=== PATIENT | male | born 1960 | race Caucasian/White ===

== ENCOUNTER 2016-10-25 16:20 | Inpatient (IN) | payer MEDICARE, MEDICAID ==
[2016-10-25 16:45] LABS: % BASOPHILS 0.3 % (0.0-2.0); % EOSINOPHILS 3.8 % (0.0-5.0); % LYMPHOCYTES 38.4 % (20.0-50.0); % MONOCYTES 8.1 % (2.0-10.0); % NEUTROPHILS 49.4 % (40.0-80.0); HEMATOCRIT 33.4 % (39.0-49.0); HEMOGLOBIN 11.4 gm/dL (13.2-17.3); MEAN CELL VOLUME 87.5 fl (80-99); MEAN CORPUSCULAR HEMOGLOBIN 29.9 pg (26.0-30.0); MEAN CORPUSCULAR HGB CONC 34.2 pg (28.0-36.0); MEAN PLATELET VOLUME 8.2 fl; NEUTROPHILE ABSOLUTE 3.1 Th/cmm (1.8-8.0); RED BLOOD COUNT 3.81 Mil/cmm (4.30-5.70); RED CELL DISTRIBUTION WIDTH 14.2 % (11.5-20.0); WHITE BLOOD COUNT 6.1 Th/cmm (4.8-10.8)
[2016-10-25 16:49] LABS: PLATELET COUNT 405 Th/cmm (150-400)
[2016-10-25 16:58] LABS: ALB/GLOB RATIO 1.6 (1.0-1.8); ALKALINE PHOSPHATASE 40 U/L (34-104); ANION GAP 8.3 (7.0-16.0); BILIRUBIN,TOTAL 0.2 mg/dL (0.3-1.0); BUN - UREA NITROGEN 18 mg/dL (7-25); BUN/CREATININE RATIO 13.8; CALCIUM SERUM 9.8 mg/dL (8.6-10.3); CARBON DIOXIDE 23.8 mEq/L (21.0-31.0); CHLORIDE 106 mEq/L (98-107); CREATININE - SERUM 1.3 mg/dL (0.7-1.3); GLUCOSE 89 mg/dL (70-105); POTASSIUM SERUM 4.1 mEq/L (3.5-5.1); SGOT 16 U/L (13-39); SGPT/ALT 13 U/L (7-52); SODIUM SERUM 134 mEq/L (136-145)
--- NOTE | 2016-10-25 17:08 | ED Physician Chart ---
Chief Complaint/HPI - Patient Information Date Seen:: 10/25/16 Time Seen:: 16:50 Chief Complaint:: "paranoia" History of Present Illness:: Patient reportedly has "paranoia." Patient denies visual or auditory hallucinations and states he likes his current facility and wants to go back there and not be admitted here. Patient denies recent vomiting, diarrhea, fever , cough, abdominal pain, fever. Allergies:: Allergies Allergy/AdvReac Type Severity Reaction Status Date / Time No Known Allergies Allergy Verified 04/25/16 17:00 Vitals:: Vital Signs - 8 hr 10/25/16 16:36 Temp 98.4 F HR 77 RR 16 BP 119/73 O2 Sat % 98 Historian:: Patient Review:: Nurse's Note Reviewed, Transfer documents Reviewed Review of Systems - Review of Systems General/Constitutional: No fever, No chills Skin: No skin lesions Head: No headache Eyes: No loss of vision ENT: No earache Neck: No neck pain Cardio Vascular: No chest pain Pulmonary: No SOB GI: No nausea, No vomiting G/U: No dysuria Musculoskeletal: No bone or joint pain Endocrine: No polyuria, No polydipsia Psychiatric: No auditory hallucination, No visual hallucination Hematopoietic: No bruising Allergic/Immuno: No urticaria Neurological: No syncope Past Medical History - Past Medical History Past Medical History: Dyslipidemia, PUD/GERD (cellulitis left leg; hypercholesterolemia; hypothyroidism; BPH; schizoaffective disorder), Thyroid disorder, Other Family History: HTN Social History: Non Smoker, No Alcohol Surgical History: None Psychiatricy History: Other (schizoaffective disorder) Medication: Reviewed Family Medical History - Family Member Mother History Unknown: Yes Ethnicity: Unknown Living Status: Still Living Hx Family Cancer: No Hx Family Coronary Artery Disease: No Hx Family Congestive Heart Failure: No Hx Family Hypertension: No Hx Family Stroke: No Hx Family Diabetes: No Hx Family Seizures: No Hx Family Dementia: No Hx Family AIDS: No Hx Family HIV: No Hx Family COPD: No Hx Family Hepatitis: No Hx Family Psychiatric Problems: No Hx Family Tuberculosis: No Father History Unknown: Yes Ethnicity: Unknown Living Status: Still Living Hx Family Cancer: No Hx Family Coronary Artery Disease: No Hx Family Congestive Heart Failure: No Hx Family Hypertension: No Hx Family Stroke: No Hx Family Diabetes: No Hx Family Seizures: No Hx Family Dementia: No Hx Family AIDS: No Hx Family HIV: No Hx Family COPD: No Hx Family Hepatitis: No Hx Family Psychiatric Problems: No Hx Family Tuberculosis: No Labs/Radiology/EKG Results - Lab Results Results: Laboratory Tests 10/25/16 10/25/16 16:39 16:39 WBC 6.1 RBC 3.81 L Hgb 11.4 L Hct 33.4 L MCV 87.5 MCH 29.9 MCHC Differential 34.2 RDW 14.2 Plt Count 405 H D MPV 8.2 Neutrophils % 49.4 Lymphocytes % 38.4 Monocytes % 8.1 Eosinophils % 3.8 Basophils % 0.3 Sodium 134 L Potassium 4.1 Chloride 106 Carbon Dioxide 23.8 Anion Gap 8.3 BUN 18 Creatinine 1.3 Est GFR ( Amer) > 60.0 Est GFR (Non-Af Amer) > 60.0 BUN/Creatinine Ratio 13.8 Glucose 89 Calcium 9.8 Total Bilirubin 0.2 L AST 16 ALT 13 Alkaline Phosphatase 40 Total Protein 6.7 Albumin 4.1 L Globulin 2.6 Albumin/Globulin Ratio 1.6 - EKG Interpretations Rhythm: NSR [place]: normal Rate: 74 Comments:: no ST-T changes. ED Septic Shock - . Is Septic Shock (SBP<90, OR Lactate>4 mmol\\L) present?: No - <6hrs of presentation: Vital Signs: Vital Signs - 8 hr 10/25/16 16:36 Temp 98.4 F HR 77 RR 16 BP 119/73 O2 Sat % 98 Reassessment (Disposition) - Reassessment Reassessment Condition:: Unchanged - Diagnosis Diagnosis:: schizoaffective disorder - Patient Disposition Admitted to:: [facility] Admitting Medical Physician:: Winifred Rogers Admitting Psych Physician:: Mike Jordan Condition at Disposition:: Stable ED Discharge Plan - Patient Disposition Admit/Discharge/Transfer: Other Care w/in this hosp Condition at Disposition: Guarded
[2016-10-25 19:38] LABS: URINE BILIRUBIN NEGATIVE (NEGATIVE); URINE COLOR YELLOW; URINE GLUCOSE (UA) NEGATIVE (NEGATIVE); URINE KETONE NEGATIVE (NEGATIVE)
[2016-10-25 19:39] LABS: URINE BACTERIA NONE SEEN /hpf (NONE SEEN); URINE BLOOD NEGATIVE (NEGATIVE); URINE EPITHELIAL CELLS NONE SEEN /lpf (FEW); URINE PH 7.5; URINE PROTEIN NEGATIVE (NEGATIVE); URINE RBC NONE SEEN /hpf (0-5); URINE UROBILINOGEN 0.2 E.U./dL (0.2 - 1.0); URINE WBC NONE SEEN /hpf (0-5)
[2016-10-25 20:17] VITALS: BP 134/76
[2016-10-25] MEDS ORDERED: Hydrocodone/APAP 5mg/325mg Tab PO PRN (20:37)
--- NOTE | 2016-10-25 22:16 | Admit Criteria Form ---
Admit Criteria Forms - Admit Criteria Diagnosis: PSYCHIATRIC DISORDERS Clinical Indications for Inpatient Care (Place 'X' for any and all applicable criteria): Ongoing inpatient care may be needed for ANY ONE of the following(1)(2)(3)(4)(6) (7)(8): [ ]I. Danger to self or others not manageable at lower level of care. [ ]II. Grave disability (eg, inability to perform self care necessary at lower level of care) [ ]III. Agitation or inappropriate behavior interfering with care for primary condition (eg, attempting to discontinue lines or drains prematurely, unable to cooperate with respiratory care) [X]IV. Severe disability or disorder indicated by ALL of the following: [X]a) Severe behavioral health disorder-related symptoms or condition indicated by ANY ONE of the following: [ ]i) Severe problem with cognition, memory, judgment, or impulse control [X]ii) Severe clinical manifestations (eg, hallucinations, delusions, other acute psychotic symptoms, florecita, extreme agitation or anxiety) [X]b) Patient management at lower level of care is not feasible until acute intervention or modification is initiated. Extended stay beyond goal length of stay for the primary condition may be indicated when ANY ONE of the following is present: (1)(2)(3)(4): [ ]a) Patient is a danger to self or others and not manageable at lower level of care. [ ]b) Behavior crisis management, including physical or chemical restraints, is required and is not available at a lower level of care. [ ]c) Behavioral symptoms (e.g., agitation, somnolence, inappropriate behavior) are present, and are not manageable at a lower level of care. [ ]d) Patient cannot understand follow-up treatment and crisis plan. [ ]e) Provider and supports are not sufficiently available at lower level of care. [ ]f) Patient cannot participate (e.g., verify absence of plan for harm) and is in needed of monitoring. The original [facility] content created by [facility] has been revised. The portions of the content which have been revised are identified through the use of italic text or in bold, and [facility] has neither reviewed nor approved the modified material. All other unmodified content is copyright [facility]. Please see references footnoted in the original [facility] edition 2016 Admit Criteria Met?: Yes
--- NOTE | 2016-10-25 23:55 | Consultation ---
Consult Note - Consult Note Service Date: 10/25/16 Consult Note: PHYSICIAN Consultation Note: Date of Admission: 10/25/16 Purpose of Consultation: Chief Complaint: paranoid History of Present Illness: Patient BENJAMIN COOK was admitted to [facility] with [employer]. Patient is 55 y male with history of HTN, Seizure disorder admitted to Geropsych unit at [facility] for paranoid ideation. he was aggressive to others. Allergies Allergy/AdvReac Type Severity Reaction Status Date / Time No Known Allergies Allergy Verified 04/25/16 17:00 Vital Signs Temp 98.3 F 10/25/16 20:20 Pulse 80 10/25/16 20:20 Resp 18 10/25/16 20:20 BP 120/84 10/25/16 20:20 Pulse Ox 99 10/25/16 20:20 Home Medication Medication Instructions Recorded Type Levothyroxine [Synthroid] 0.125 mg PO QDAC #0 tab 03/16/15 Rx risperiDONE [Risperdal] 1 mg PO TID #0 tab 03/16/15 Rx Acetaminophen [Tylenol] 650 mg PO Q4HR PRN #0 tab 05/18/15 Rx Fenofibrate, Micronized [Tricor] 134 mg PO DAILY #0 cap 05/18/15 Rx Hydrocodone/APAP 5mg/325mg [[place] 1 tab PO BID PRN #0 tab 05/18/15 Rx 5mg/325mg] Magnesium Hydroxide [Milk of 30 ml PO Q6H PRN #0 udc 05/18/15 Rx Magnesia] Aspirin EC [Ecotrin] 81 mg PO DAILY 04/25/16 History Benztropine [Cogentin*] 2 mg PO BID 04/25/16 History Divalproex [Chemo MTZ] 1,000 mg PO HS 04/25/16 History Divalproex [Chemo MTZ] 500 mg PO DAILY 04/25/16 History Famotidine [Pepcid] 20 mg PO DAILY 04/25/16 History Lisinopril [Zestril*] 10 mg PO DAILY 04/25/16 History Lorazepam [Ativan] 1 mg PO BID PRN 04/25/16 History QUEtiapine Fumarate [SEROquel] 50 mg PO BID 04/25/16 History QUEtiapine Fumarate [SEROquel] 550 mg PO HS 04/25/16 History Tamsulosin [Flomax] 0.4 mg PO HS 04/25/16 History Thiamine [Vitamin B1] 100 mg PO DAILY 04/25/16 History Zolpidem Tartrate [Ambien] 5 mg PO HS PRN 04/25/16 History cloZAPine [Clozaril] 200 mg PO HS 04/25/16 History clonazePAM [klonoPIN*] 0.5 mg PO BID 04/25/16 History traZODone HCl [Desyrel*] 25 mg PO HS 04/25/16 History Current Medications Generic Name Dose Route Start Last Admin Trade Name Freq PRN Reason Stop Dose Admin Acetaminophen 650 mg 10/25/16 20:24 Tylenol PO 12/24/16 20:23 Q4HR PRN Fever >100.5 Acetaminophen/Hydrocodone Bitart 1 tab 10/25/16 20:37 [place] 5mg/325mg PO 12/24/16 20:36 BID PRN Pain Aspirin 81 mg 10/26/16 09:00 Ecotrin PO 12/25/16 08:59 DAILY HEIDI Benztropine Mesylate 2 mg 10/26/16 09:00 Cogentin PO 12/25/16 08:59 BID HEIDI Clozapine 200 mg 10/25/16 21:00 10/25/16 22:42 Clozaril PO 12/24/16 20:59 Not Given HS HEIDI Protocol Divalproex Sodium 1,000 mg 10/25/16 21:00 10/25/16 21:[address] PO 12/24/16 20:59 1,000 mg Q12HR HEIDI Administration Protocol Famotidine 20 mg 10/26/16 09:00 Pepcid PO 12/25/16 08:59 DAILY HEIDI Fenofibrate 134 mg 10/26/16 09:00 Tricor PO 12/25/16 08:59 DAILY HEIDI Levothyroxine Sodium 0.125 mg 10/26/16 07:30 Synthroid PO 12/25/16 07:29 QDAC HEIDI Lisinopril 10 mg 10/26/16 09:00 Zestril PO 12/25/16 08:59 DAILY HEIDI Lorazepam 1 mg 10/25/16 20:37 Ativan PO 12/24/16 20:36 BID PRN Anxiety Protocol Magnesium Hydroxide 30 ml 10/25/16 20:37 Milk Of Magnesia PO 12/24/16 20:36 Q6H PRN Constipation Quetiapine Fumarate 500 mg 10/25/16 21:00 10/25/16 22:42 Seroquel PO 12/24/16 20:59 Not Given HS [facility] Protocol Tamsulosin HCl 0.4 mg 10/25/16 21:00 10/25/16 21:10 Flomax PO 12/24/16 20:59 0.4 mg HS HEIDI Administration Thiamine HCl 100 mg 10/26/16 09:00 Vitamin B1 PO 12/25/16 08:59 DAILY HEIDI Trazodone HCl 25 mg 10/25/16 21:00 10/25/16 22:42 Desyrel PO 12/24/16 20:59 Not Given HS [facility] Protocol Zolpidem Tartrate 5 mg 10/25/16 20:18 Ambien PO 12/24/16 20:17 HS PRN Insomnia Review of Systems: A 12 point ROS was reviewed with the pertinent positive and negatives noted in the HPI. Past Medical History Hx Diabetes No Hx HTN Yes Hx COPD No Hx Stroke No Hx Seizure Yes Hx Renal Disease No Hepatitis No Bleeding Problems No Depression Yes VRE No MRSA No Hx Dizziness No Anxiety Yes Hx Arthritis No Hx Asthma No Hx Blood Transfusion Reaction No Hx Cardiac Disease No Hx Eating Disorder No Hx Fainting/Syncope No Hx GI Problems/Ulcer No TB Diagnosis In Past 2 Years No Social History Smoking Status Never smoker Drug Use No Alcohol Use No Physical Exam: General: Wn WD. No Acute Distress HEENT: EOMI Bilaterally, PERRLA Bilaterally, Head is normocephalic, atraumatic on inspection. Cardio: +S1/S2 Auscultated, RRR, no murmurs/rubs/gallops noted Respiratory: Clear to Auscultate Bilaterally Abdominal: Soft, Nondistended, Nontender to palpation x 4 quadrants Genital/Urinary: Extremities: No Edema noted in the lower extremities Neurological: Cranial Nerves II-XII intact bilaterally, Gait Steady, No Focal Deficits noted. Assessment/Plan: Psychosis,, acute. Schizoaffective disorder. HTN. Seizure disorder. plan conitnue the same treatment, follow up as per consults. Signed, Chato Elam M.D. [id number]
[2016-10-26] MEDS: Levothyroxine 0.125 Mg Tab PO SCH (06:45)
[2016-10-26] MEDS: Fenofibrate, Micronized 134 mg Cap PO SCH (09:06)
[2016-10-26] MEDS: Benztropine 1 MG TAB PO SCH ×2 (09:07→17:14)
--- NOTE | 2016-10-26 09:51 | General Progress Note ---
Objective - Results Result Diagrams: 10/25/16 16:39 10/25/16 16:39 Recent Labs: Laboratory Last Values WBC 6.1 Th/cmm (4.8-10.8) 10/25/16 16:39 RBC 3.81 Mil/cmm (4.30-5.70) L 10/25/16 16:39 Hgb 11.4 gm/dL (13.2-17.3) L 10/25/16 16:39 Hct 33.4 % (39.0-49.0) L 10/25/16 16:39 MCV 87.5 fl (80-99) 10/25/16 16:39 MCH 29.9 pg (26.0-30.0) 10/25/16 16:39 MCHC Differential 34.2 pg (28.0-36.0) 10/25/16 16:39 RDW 14.2 % (11.5-20.0) 10/25/16 16:39 Plt Count 405 Th/cmm (150-400) H D 10/25/16 16:39 MPV 8.2 fl 10/25/16 16:39 Neutrophils % 49.4 % (40.0-80.0) 10/25/16 16:39 Lymphocytes % 38.4 % (20.0-50.0) 10/25/16 16:39 Monocytes % 8.1 % (2.0-10.0) 10/25/16 16:39 Eosinophils % 3.8 % (0.0-5.0) 10/25/16 16:39 Basophils % 0.3 % (0.0-2.0) 10/25/16 16:39 Sodium 134 mEq/L (136-145) L 10/25/16 16:39 Potassium 4.1 mEq/L (3.5-5.1) 10/25/16 16:39 Chloride 106 mEq/L (98-107) 10/25/16 16:39 Carbon Dioxide 23.8 mEq/L (21.0-31.0) 10/25/16 16:39 Anion Gap 8.3 (7.0-16.0) 10/25/16 16:39 BUN 18 mg/dL (7-25) 10/25/16 16:39 Creatinine 1.3 mg/dL (0.7-1.3) 10/25/16 16:39 Est GFR ( Amer) > 60.0 ml/min (>90) 10/25/16 16:39 Est GFR (Non-Af Amer) > 60.0 ml/min 10/25/16 16:39 BUN/Creatinine Ratio 13.8 10/25/16 16:39 Glucose 89 mg/dL (70-105) 10/25/16 16:39 Calcium 9.8 mg/dL (8.6-10.3) 10/25/16 16:39 Total Bilirubin 0.2 mg/dL (0.3-1.0) L 10/25/16 16:39 AST 16 U/L (13-39) 10/25/16 16:39 ALT 13 U/L (7-52) 10/25/16 16:39 Alkaline Phosphatase 40 U/L (34-104) 10/25/16 16:39 Total Protein 6.7 gm/dL (6.0-8.3) 10/25/16 16:39 Albumin 4.1 gm/dL (4.2-5.5) L 10/25/16 16:39 Globulin 2.6 gm/dL 10/25/16 16:39 Albumin/Globulin Ratio 1.6 (1.0-1.8) 10/25/16 16:39 TSH 2.35 uIU/ml (0.34-5.60) 10/25/16 16:39 Urine Source CLEAN C 10/25/16 18:00 Urine Color YELLOW 10/25/16 18:00 Urine Clarity CLEAR (CLEAR) 10/25/16 18:00 Urine pH 7.5 10/25/16 18:00 Ur Specific [place] 1.020 (1.005-1.030) 10/25/16 18:00 Urine Protein NEGATIVE mg/dL (NEGATIVE) 10/25/16 18:00 Urine Glucose (UA) NEGATIVE mg/dL (NEGATIVE) 10/25/16 18:00 Urine Ketones NEGATIVE mg/dL (NEGATIVE) 10/25/16 18:00 Urine Blood NEGATIVE (NEGATIVE) 10/25/16 18:00 Urine Nitrate NEGATIVE (NEGATIVE) 10/25/16 18:00 Urine Bilirubin NEGATIVE (NEGATIVE) 10/25/16 18:00 Urine Urobilinogen 0.2 E.U./dL (0.2 - 1.0) 10/25/16 18:00 Ur Leukocyte Esterase NEGATIVE (NEGATIVE) 10/25/16 18:00 Urine RBC NONE SEEN /hpf (0-5) 10/25/16 18:00 Urine WBC NONE SEEN /hpf (0-5) 10/25/16 18:00 Ur Epithelial Cells NONE SEEN /lpf (FEW) 10/25/16 18:00 Urine Bacteria NONE SEEN /hpf (NONE SEEN) 10/25/16 18:00 Valproic Acid 81.7 ug/mL (50.0-100.0) 10/25/16 16:39 RPR NONREACTIVE (NONREACTIVE) 10/25/16 16:39 - Physical Exam Vitals and I&O: Vital Signs Temp 98.3 F 10/25/16 20:20 Pulse 92 10/26/16 09:06 Resp 18 10/25/16 20:20 BP 121/62 10/26/16 09:06 Pulse Ox 99 10/25/16 20:20 Active Medications: Current Medications Acetaminophen (Tylenol) 650 mg PO Q4HR PRN PRN Reason: Fever >100.5 Stop: 12/24/16 20:23 Acetaminophen/Hydrocodone Bitart ([place] 5mg/325mg) 1 tab PO BID PRN PRN Reason: Pain Stop: 12/24/16 20:36 Aspirin (Ecotrin) 81 mg PO DAILY [facility] Stop: 12/25/16 08:59 Last Admin: 10/26/16 09:07 Dose: 81 mg Benztropine Mesylate (Cogentin) 2 mg PO BID HEIDI Stop: 12/25/16 08:59 Last Admin: 10/26/16 09:07 Dose: 2 mg Clozapine (Clozaril) 200 mg PO HS HEIDI PRN Reason: Protocol Stop: 12/24/16 20:59 Last Admin: 10/25/16 22:42 Dose: Not Given Divalproex Sodium (Depakote Dr) 1,000 mg PO Q12HR HEIDI PRN Reason: Protocol Stop: 12/24/16 20:59 Last Admin: 10/26/16 09:07 Dose: 1,000 mg Famotidine (Pepcid) 20 mg PO DAILY HEIDI Stop: 12/25/16 08:59 Last Admin: 10/26/16 09:07 Dose: 20 mg Fenofibrate (Tricor) 134 mg PO DAILY HEIDI Stop: 12/25/16 08:59 Last Admin: 10/26/16 09:06 Dose: 134 mg Levothyroxine Sodium (Synthroid) 0.125 mg PO QDAC HEIDI Stop: 12/25/16 07:29 Last Admin: 10/26/16 06:45 Dose: 0.125 mg Lisinopril (Zestril) 10 mg PO DAILY HEIDI Stop: 12/25/16 08:59 Last Admin: 10/26/16 09:06 Dose: 10 mg Lorazepam (Ativan) 1 mg PO BID PRN; Protocol PRN Reason: Anxiety Stop: 12/24/16 20:36 Magnesium Hydroxide (Milk Of Magnesia) 30 ml PO Q6H PRN PRN Reason: Constipation Stop: 12/24/16 20:36 Quetiapine Fumarate (Seroquel) 500 mg PO HS HEIDI PRN Reason: Protocol Stop: 12/24/16 20:59 Last Admin: 10/25/16 22:42 Dose: Not Given Tamsulosin HCl (Flomax) 0.4 mg PO HS HEIDI Stop: 12/24/16 20:59 Last Admin: 10/25/16 21:10 Dose: 0.4 mg Thiamine HCl (Vitamin B1) 100 mg PO DAILY HEIDI Stop: 12/25/16 08:59 Last Admin: 10/26/16 09:07 Dose: 100 mg Trazodone HCl (Desyrel) 25 mg PO HS HEIDI PRN Reason: Protocol Stop: 12/24/16 20:59 Last Admin: 10/25/16 22:42 Dose: Not Given Zolpidem Tartrate (Ambien) 5 mg PO HS PRN PRN Reason: Insomnia Stop: 12/24/16 20:17 - Procedures Procedures: Procedures Procedure Code Date OTHER GROUP THERAPY 94.44 04/29/15 Assessment/Plan - Problem List Patient Problems: All Active Problems Delusional disorder (Acute) F22 Hyponatremia (Acute) E87.1 Pain (Acute) R52
--- NOTE | 2016-10-26 14:29 | History & Physical ---
This patient is very well known to me. The patient lives in [facility]. The patient has underlying psychiatric problem, schizoaffective disorder, apparently also has a history of seizure disorder, history of hypertension. He was having severe paranoid ideation and very aggressive. He was referred to [facility] ER where the ER doctor cleared him medically and admitted to Geropsych Unit and difficult to obtain any more history from him. PAST MEDICAL HISTORY: As enumerated above. ALLERGIES: None. MEDICATIONS: He is on levothyroxine, risperidone, fenofibrate, and [place]. PHYSICAL EXAMINATION: VITAL SIGNS: Temperature 98.3, pulse was 80, respirations 18, blood pressure 120/58. HEAD: Normal. ENT: Normal. NECK: Supple, nontender. LUNGS: Clear. CARDIOVASCULAR SYSTEM: S1, S2 heard. ABDOMEN: Soft. Bowel sounds are heard. CENTRAL NERVOUS SYSTEM: Grossly normal. DIAGNOSES: 1. History of hypertension. 2. History of seizures. 3. History of schizoaffective disorder. 4. History of benign enlargement of the prostate. 5. History of hypothyroidism. 6. History of hyperlipidemia. PLAN: We will continue all of his medications and I will follow up for all the medical problems and I will follow along with psychiatrist. JOB# [id number]
[2016-10-27] MEDS: Magnesium Hydroxide (MOM) 30 mL UDC PO PRN (00:12)
[2016-10-27] MEDS: Levothyroxine 0.125 Mg Tab PO SCH (06:36)
[2016-10-27] MEDS: Benztropine 1 MG TAB PO SCH ×2 (08:25→16:10)
[2016-10-27] MEDS: Fenofibrate, Micronized 134 mg Cap PO SCH (08:28)
--- NOTE | 2016-10-27 10:24 | Psychosocial Evaluation ---
CHIEF COMPLAINT: "I can't sleep." HISTORY OF PRESENT ILLNESS: The patient is a 55-year-old male with a history of schizoaffective disorder, known to myself from treatment at this facility and prior hospitalization was sent to the hospital from his [facility] facility for increased agitation and paranoia and not sleeping and become more restless and anxious. The patient admits to having racing thoughts and mood swings. Medications were recently decreased just a few weeks ago and now he presented to the hospital with decompensated state. PAST PSYCHIATRIC HISTORY: Multiple hospitalizations, chronic history of mental illness. PAST MEDICAL HISTORY: As per Dr. Rogers. PSYCHOSOCIAL HISTORY: The patient resides at a [facility] facility and requires complete care. THE PATIENT'S STRENGTHS AND ASSETS: This patient is accepting treatment, ____ poor insight. MENTAL STATUS EXAMINATION: The patient is cooperative and slightly disheveled. His speech is fast and pressured. His affect is labile and anxious. The patient is still highly paranoid, suspicious. The patient is oriented to time, place and person. It is unclear if he is having auditory hallucinations that he is not hearing voices now, but in the past, he has a history of hearing voices. ASSESSMENT: Schizoaffective disorder, psychotic phase. MEDICAL DIAGNOSIS: Per medical history. PLAN: We will admit the patient for hospitalization. We will start individual, milieu and group therapy and assess psychopharmacological intervention. ESTIMATED LENGTH OF STAY: 7 days. CRITERIA FOR DISCHARGE: No psychosis, no agitation, safe disposition, outpatient treatment plan. [facility]# [id number]
--- NOTE | 2016-10-27 11:17 | General Progress Note ---
Subjective - Review of Systems Service Date: 10/27/16 Objective - Results Result Diagrams: 10/29/16 08:55 10/25/16 16:39 Recent Labs: Laboratory Last Values WBC 6.1 Th/cmm (4.8-10.8) 10/25/16 16:39 RBC 3.81 Mil/cmm (4.30-5.70) L 10/25/16 16:39 Hgb 11.4 gm/dL (13.2-17.3) L 10/25/16 16:39 Hct 33.4 % (39.0-49.0) L 10/25/16 16:39 MCV 87.5 fl (80-99) 10/25/16 16:39 MCH 29.9 pg (26.0-30.0) 10/25/16 16:39 MCHC Differential 34.2 pg (28.0-36.0) 10/25/16 16:39 RDW 14.2 % (11.5-20.0) 10/25/16 16:39 Plt Count 405 Th/cmm (150-400) H D 10/25/16 16:39 MPV 8.2 fl 10/25/16 16:39 Neutrophils % 49.4 % (40.0-80.0) 10/25/16 16:39 Lymphocytes % 38.4 % (20.0-50.0) 10/25/16 16:39 Monocytes % 8.1 % (2.0-10.0) 10/25/16 16:39 Eosinophils % 3.8 % (0.0-5.0) 10/25/16 16:39 Basophils % 0.3 % (0.0-2.0) 10/25/16 16:39 Sodium 134 mEq/L (136-145) L 10/25/16 16:39 Potassium 4.1 mEq/L (3.5-5.1) 10/25/16 16:39 Chloride 106 mEq/L (98-107) 10/25/16 16:39 Carbon Dioxide 23.8 mEq/L (21.0-31.0) 10/25/16 16:39 Anion Gap 8.3 (7.0-16.0) 10/25/16 16:39 BUN 18 mg/dL (7-25) 10/25/16 16:39 Creatinine 1.3 mg/dL (0.7-1.3) 10/25/16 16:39 Est GFR ( Amer) > 60.0 ml/min (>90) 10/25/16 16:39 Est GFR (Non-Af Amer) > 60.0 ml/min 10/25/16 16:39 BUN/Creatinine Ratio 13.8 10/25/16 16:39 Glucose 89 mg/dL (70-105) 10/25/16 16:39 Calcium 9.8 mg/dL (8.6-10.3) 10/25/16 16:39 Total Bilirubin 0.2 mg/dL (0.3-1.0) L 10/25/16 16:39 AST 16 U/L (13-39) 10/25/16 16:39 ALT 13 U/L (7-52) 10/25/16 16:39 Alkaline Phosphatase 40 U/L (34-104) 10/25/16 16:39 Total Protein 6.7 gm/dL (6.0-8.3) 10/25/16 16:39 Albumin 4.1 gm/dL (4.2-5.5) L 10/25/16 16:39 Globulin 2.6 gm/dL 10/25/16 16:39 Albumin/Globulin Ratio 1.6 (1.0-1.8) 10/25/16 16:39 TSH 2.35 uIU/ml (0.34-5.60) 10/25/16 16:39 Urine Source CLEAN C 10/25/16 18:00 Urine Color YELLOW 10/25/16 18:00 Urine Clarity CLEAR (CLEAR) 10/25/16 18:00 Urine pH 7.5 10/25/16 18:00 Ur Specific [place] 1.020 (1.005-1.030) 10/25/16 18:00 Urine Protein NEGATIVE mg/dL (NEGATIVE) 10/25/16 18:00 Urine Glucose (UA) NEGATIVE mg/dL (NEGATIVE) 10/25/16 18:00 Urine Ketones NEGATIVE mg/dL (NEGATIVE) 10/25/16 18:00 Urine Blood NEGATIVE (NEGATIVE) 10/25/16 18:00 Urine Nitrate NEGATIVE (NEGATIVE) 10/25/16 18:00 Urine Bilirubin NEGATIVE (NEGATIVE) 10/25/16 18:00 Urine Urobilinogen 0.2 E.U./dL (0.2 - 1.0) 10/25/16 18:00 Ur Leukocyte Esterase NEGATIVE (NEGATIVE) 10/25/16 18:00 Urine RBC NONE SEEN /hpf (0-5) 10/25/16 18:00 Urine WBC NONE SEEN /hpf (0-5) 10/25/16 18:00 Ur Epithelial Cells NONE SEEN /lpf (FEW) 10/25/16 18:00 Urine Bacteria NONE SEEN /hpf (NONE SEEN) 10/25/16 18:00 Valproic Acid 81.7 ug/mL (50.0-100.0) 10/25/16 16:39 RPR NONREACTIVE (NONREACTIVE) 10/25/16 16:39 - Physical Exam Vitals and I&O: Vital Signs Temp 98.2 F 10/26/16 18:28 Pulse 90 10/27/16 08:27 Resp 20 10/26/16 20:00 BP 113/59 10/27/16 08:27 Pulse Ox 98 10/26/16 18:28 Intake & Output 10/26/16 10/27/16 10/27/16 18:59 06:59 18:59 Intake Total 1000 Balance 1000 Intake: Oral 1000 Other: # Voids 3 # Bowel Movements 2 Active Medications: Current Medications Acetaminophen (Tylenol) 650 mg PO Q4HR PRN PRN Reason: Fever >100.5 Stop: 12/24/16 20:23 Last Admin: 10/26/16 18:24 Dose: 650 mg Acetaminophen/Hydrocodone Bitart ([place] 5mg/325mg) 1 tab PO BID PRN PRN Reason: Pain Stop: 12/24/16 20:36 Aspirin (Ecotrin) 81 mg PO DAILY [facility] Stop: 12/25/16 08:59 Last Admin: 10/27/16 08:29 Dose: 81 mg Benztropine Mesylate (Cogentin) 2 mg PO BID [facility] Stop: 12/25/16 08:59 Last Admin: 10/27/16 08:25 Dose: 2 mg Clozapine (Clozaril) 200 mg PO HS [facility] PRN Reason: Protocol Stop: 12/24/16 20:59 Last Admin: 10/26/16 20:56 Dose: 200 mg Divalproex Sodium (Depakote Dr) 1,000 mg PO Q12HR [facility] PRN Reason: Protocol Stop: 12/24/16 20:59 Last Admin: 10/27/16 08:27 Dose: 1,000 mg Famotidine (Pepcid) 20 mg PO DAILY [facility] Stop: 12/25/16 08:59 Last Admin: 10/27/16 08:28 Dose: 20 mg Fenofibrate (Tricor) 134 mg PO DAILY [facility] Stop: 12/25/16 08:59 Last Admin: 10/27/16 08:28 Dose: 134 mg Levothyroxine Sodium (Synthroid) 0.125 mg PO QDAC [facility] Stop: 12/25/16 07:29 Last Admin: 10/27/16 06:36 Dose: 0.125 mg Lisinopril (Zestril) 10 mg PO DAILY [facility] Stop: 12/25/16 08:59 Last Admin: 10/27/16 08:27 Dose: 10 mg Lorazepam (Ativan) 1 mg PO BID PRN; Protocol PRN Reason: Anxiety Stop: 12/24/16 20:36 Magnesium Hydroxide (Milk Of Magnesia) 30 ml PO Q6H PRN PRN Reason: Constipation Stop: 12/24/16 20:36 Last Admin: 10/27/16 00:12 Dose: 30 ml Quetiapine Fumarate (Seroquel) 500 mg PO HS [facility] PRN Reason: Protocol Stop: 12/24/16 20:59 Last Admin: 10/26/16 20:55 Dose: 500 mg Tamsulosin HCl (Flomax) 0.4 mg PO HS [facility] Stop: 12/24/16 20:59 Last Admin: 10/26/16 20:56 Dose: 0.4 mg Temazepam (Restoril) 15 mg PO HS PRN; Protocol PRN Reason: Insomnia Stop: 12/25/16 11:13 Thiamine HCl (Vitamin B1) 100 mg PO DAILY [facility] Stop: 12/25/16 08:59 Last Admin: 10/27/16 08:29 Dose: 100 mg Trazodone HCl (Desyrel) 25 mg PO HS [facility] PRN Reason: Protocol Stop: 12/24/16 20:59 Last Admin: 10/26/16 20:56 Dose: 25 mg General: Alert Neck: Supple Cardiovascular: Regular rate, Normal S1 Lungs: Clear to auscultation Abdomen: Bowel sounds Neurological: Normal gait - Procedures Procedures: Procedures Procedure Code Date OTHER GROUP THERAPY 94.44 08/14/15 Assessment/Plan - Problem List Patient Problems: All Active Problems Delusional disorder (Acute) F22 Hyponatremia (Acute) E87.1 Pain (Acute) R52
--- NOTE | 2016-10-28 04:43 | Progress Notes ---
SUBJECTIVE: The patient was seen, chart reviewed, discussed with staff. Still anxious, guarded, still paranoid, restless, continues to have episodes of pacing mostly at nighttime. The patient is talking to himself; however, he is taking his medications and is tolerating Seroquel and Clozaril well. ASSESSMENT: Schizoaffective disorder. PLAN: We will continue inpatient hospitalization. Continue stabilization. Continue to monitor closely. [facility]# [id number]
[2016-10-28] MEDS: Levothyroxine 0.125 Mg Tab PO SCH (06:29)
[2016-10-28] MEDS: Benztropine 1 MG TAB PO SCH ×2 (08:13→16:38)
[2016-10-28] MEDS: Fenofibrate, Micronized 134 mg Cap PO SCH (08:13)
--- NOTE | 2016-10-28 08:53 | General Progress Note ---
Subjective - Review of Systems Service Date: 10/29/16 Objective - Results Result Diagrams: 10/29/16 08:55 10/25/16 16:39 Recent Labs: Laboratory Last Values WBC 6.1 Th/cmm (4.8-10.8) 10/25/16 16:39 RBC 3.81 Mil/cmm (4.30-5.70) L 10/25/16 16:39 Hgb 11.4 gm/dL (13.2-17.3) L 10/25/16 16:39 Hct 33.4 % (39.0-49.0) L 10/25/16 16:39 MCV 87.5 fl (80-99) 10/25/16 16:39 MCH 29.9 pg (26.0-30.0) 10/25/16 16:39 MCHC Differential 34.2 pg (28.0-36.0) 10/25/16 16:39 RDW 14.2 % (11.5-20.0) 10/25/16 16:39 Plt Count 405 Th/cmm (150-400) H D 10/25/16 16:39 MPV 8.2 fl 10/25/16 16:39 Neutrophils % 49.4 % (40.0-80.0) 10/25/16 16:39 Lymphocytes % 38.4 % (20.0-50.0) 10/25/16 16:39 Monocytes % 8.1 % (2.0-10.0) 10/25/16 16:39 Eosinophils % 3.8 % (0.0-5.0) 10/25/16 16:39 Basophils % 0.3 % (0.0-2.0) 10/25/16 16:39 Sodium 134 mEq/L (136-145) L 10/25/16 16:39 Potassium 4.1 mEq/L (3.5-5.1) 10/25/16 16:39 Chloride 106 mEq/L (98-107) 10/25/16 16:39 Carbon Dioxide 23.8 mEq/L (21.0-31.0) 10/25/16 16:39 Anion Gap 8.3 (7.0-16.0) 10/25/16 16:39 BUN 18 mg/dL (7-25) 10/25/16 16:39 Creatinine 1.3 mg/dL (0.7-1.3) 10/25/16 16:39 Est GFR ( Amer) > 60.0 ml/min (>90) 10/25/16 16:39 Est GFR (Non-Af Amer) > 60.0 ml/min 10/25/16 16:39 BUN/Creatinine Ratio 13.8 10/25/16 16:39 Glucose 89 mg/dL (70-105) 10/25/16 16:39 Calcium 9.8 mg/dL (8.6-10.3) 10/25/16 16:39 Total Bilirubin 0.2 mg/dL (0.3-1.0) L 10/25/16 16:39 AST 16 U/L (13-39) 10/25/16 16:39 ALT 13 U/L (7-52) 10/25/16 16:39 Alkaline Phosphatase 40 U/L (34-104) 10/25/16 16:39 Total Protein 6.7 gm/dL (6.0-8.3) 10/25/16 16:39 Albumin 4.1 gm/dL (4.2-5.5) L 10/25/16 16:39 Globulin 2.6 gm/dL 10/25/16 16:39 Albumin/Globulin Ratio 1.6 (1.0-1.8) 10/25/16 16:39 TSH 2.35 uIU/ml (0.34-5.60) 10/25/16 16:39 Urine Source CLEAN C 10/25/16 18:00 Urine Color YELLOW 10/25/16 18:00 Urine Clarity CLEAR (CLEAR) 10/25/16 18:00 Urine pH 7.5 10/25/16 18:00 Ur Specific [place] 1.020 (1.005-1.030) 10/25/16 18:00 Urine Protein NEGATIVE mg/dL (NEGATIVE) 10/25/16 18:00 Urine Glucose (UA) NEGATIVE mg/dL (NEGATIVE) 10/25/16 18:00 Urine Ketones NEGATIVE mg/dL (NEGATIVE) 10/25/16 18:00 Urine Blood NEGATIVE (NEGATIVE) 10/25/16 18:00 Urine Nitrate NEGATIVE (NEGATIVE) 10/25/16 18:00 Urine Bilirubin NEGATIVE (NEGATIVE) 10/25/16 18:00 Urine Urobilinogen 0.2 E.U./dL (0.2 - 1.0) 10/25/16 18:00 Ur Leukocyte Esterase NEGATIVE (NEGATIVE) 10/25/16 18:00 Urine RBC NONE SEEN /hpf (0-5) 10/25/16 18:00 Urine WBC NONE SEEN /hpf (0-5) 10/25/16 18:00 Ur Epithelial Cells NONE SEEN /lpf (FEW) 10/25/16 18:00 Urine Bacteria NONE SEEN /hpf (NONE SEEN) 10/25/16 18:00 Valproic Acid 81.7 ug/mL (50.0-100.0) 10/25/16 16:39 RPR NONREACTIVE (NONREACTIVE) 10/25/16 16:39 - Physical Exam Vitals and I&O: Vital Signs Temp 98.2 F 10/28/16 07:05 Pulse 93 10/28/16 08:14 Resp 20 10/28/16 07:05 BP 112/69 10/28/16 08:14 Pulse Ox 99 10/28/16 07:05 Intake & Output 10/27/16 10/28/16 10/28/16 18:59 06:59 18:59 Intake Total 1200 120 Balance 1200 120 Intake: Oral 1200 120 Other: # Voids 5 3 # Bowel Movements 1 Active Medications: Current Medications Acetaminophen (Tylenol) 650 mg PO Q4HR PRN PRN Reason: Fever >100.5 Stop: 12/24/16 20:23 Last Admin: 10/26/16 18:24 Dose: 650 mg Acetaminophen/Hydrocodone Bitart ([place] 5mg/325mg) 1 tab PO BID PRN PRN Reason: Pain Stop: 12/24/16 20:36 Aspirin (Ecotrin) 81 mg PO DAILY [facility] Stop: 12/25/16 08:59 Last Admin: 10/28/16 08:12 Dose: 81 mg Benztropine Mesylate (Cogentin) 2 mg PO BID [facility] Stop: 12/25/16 08:59 Last Admin: 10/28/16 08:13 Dose: 2 mg Clozapine (Clozaril) 200 mg PO HS [facility] PRN Reason: Protocol Stop: 12/24/16 20:59 Last Admin: 10/27/16 20:31 Dose: 200 mg Divalproex Sodium (Depakote Dr) 1,000 mg PO Q12HR [facility] PRN Reason: Protocol Stop: 12/24/16 20:59 Last Admin: 10/28/16 08:13 Dose: 1,000 mg Famotidine (Pepcid) 20 mg PO DAILY [facility] Stop: 12/25/16 08:59 Last Admin: 10/28/16 08:12 Dose: 20 mg Fenofibrate (Tricor) 134 mg PO DAILY [facility] Stop: 12/25/16 08:59 Last Admin: 10/28/16 08:13 Dose: 134 mg Levothyroxine Sodium (Synthroid) 0.125 mg PO QDAC [facility] Stop: 12/25/16 07:29 Last Admin: 10/28/16 06:29 Dose: 0.125 mg Lisinopril (Zestril) 10 mg PO DAILY [facility] Stop: 12/25/16 08:59 Last Admin: 10/28/16 08:14 Dose: 10 mg Lorazepam (Ativan) 1 mg PO BID PRN; Protocol PRN Reason: Anxiety Stop: 12/24/16 20:36 Magnesium Hydroxide (Milk Of Magnesia) 30 ml PO Q6H PRN PRN Reason: Constipation Stop: 12/24/16 20:36 Last Admin: 10/27/16 00:12 Dose: 30 ml Quetiapine Fumarate (Seroquel) 500 mg PO HS [facility] PRN Reason: Protocol Stop: 12/24/16 20:59 Last Admin: 10/27/16 20:34 Dose: 500 mg Tamsulosin HCl (Flomax) 0.4 mg PO HS [facility] Stop: 12/24/16 20:59 Last Admin: 10/27/16 20:35 Dose: 0.4 mg Temazepam (Restoril) 15 mg PO HS PRN; Protocol PRN Reason: Insomnia Stop: 12/25/16 11:13 Thiamine HCl (Vitamin B1) 100 mg PO DAILY [facility] Stop: 12/25/16 08:59 Last Admin: 10/28/16 08:13 Dose: 100 mg Trazodone HCl (Desyrel) 25 mg PO HS [facility] PRN Reason: Protocol Stop: 12/24/16 20:59 Last Admin: 10/27/16 20:33 Dose: 25 mg - Procedures Procedures: Procedures Procedure Code Date OTHER GROUP THERAPY 94.44 04/29/15 Assessment/Plan - Problem List Patient Problems: All Active Problems Delusional disorder (Acute) F22 Hyponatremia (Acute) E87.1 Pain (Acute) R52
--- NOTE | 2016-10-29 04:52 | Progress Notes ---
SUBJECTIVE: The patient was seen, chart reviewed, discussed with staff. The patient is still anxious, some episodes of paranoia is noted. The patient said he wants to have his medication increased because he is still having difficulty sleeping at nighttime. The patient was asked to increase his Clozaril and he admits to feeling paranoid. ASSESSMENT: Schizoaffective disorder, still in psychotic phase. PLAN: We will continue hospitalization, continue stabilization, current dose of Clozaril 200 mg p.o. at bedtime, consider increasing dose gradually, increased to 225 mg p.o. at bedtime. JOB# [id number]
[2016-10-29] MEDS: Levothyroxine 0.125 Mg Tab PO SCH (06:32)
--- NOTE | 2016-10-29 09:22 | General Progress Note ---
Objective - Results Result Diagrams: 10/25/16 16:39 10/25/16 16:39 Recent Labs: Laboratory Last Values WBC 6.1 Th/cmm (4.8-10.8) 10/25/16 16:39 RBC 3.81 Mil/cmm (4.30-5.70) L 10/25/16 16:39 Hgb 11.4 gm/dL (13.2-17.3) L 10/25/16 16:39 Hct 33.4 % (39.0-49.0) L 10/25/16 16:39 MCV 87.5 fl (80-99) 10/25/16 16:39 MCH 29.9 pg (26.0-30.0) 10/25/16 16:39 MCHC Differential 34.2 pg (28.0-36.0) 10/25/16 16:39 RDW 14.2 % (11.5-20.0) 10/25/16 16:39 Plt Count 405 Th/cmm (150-400) H D 10/25/16 16:39 MPV 8.2 fl 10/25/16 16:39 Neutrophils % 49.4 % (40.0-80.0) 10/25/16 16:39 Lymphocytes % 38.4 % (20.0-50.0) 10/25/16 16:39 Monocytes % 8.1 % (2.0-10.0) 10/25/16 16:39 Eosinophils % 3.8 % (0.0-5.0) 10/25/16 16:39 Basophils % 0.3 % (0.0-2.0) 10/25/16 16:39 Sodium 134 mEq/L (136-145) L 10/25/16 16:39 Potassium 4.1 mEq/L (3.5-5.1) 10/25/16 16:39 Chloride 106 mEq/L (98-107) 10/25/16 16:39 Carbon Dioxide 23.8 mEq/L (21.0-31.0) 10/25/16 16:39 Anion Gap 8.3 (7.0-16.0) 10/25/16 16:39 BUN 18 mg/dL (7-25) 10/25/16 16:39 Creatinine 1.3 mg/dL (0.7-1.3) 10/25/16 16:39 Est GFR ( Amer) > 60.0 ml/min (>90) 10/25/16 16:39 Est GFR (Non-Af Amer) > 60.0 ml/min 10/25/16 16:39 BUN/Creatinine Ratio 13.8 10/25/16 16:39 Glucose 89 mg/dL (70-105) 10/25/16 16:39 Calcium 9.8 mg/dL (8.6-10.3) 10/25/16 16:39 Total Bilirubin 0.2 mg/dL (0.3-1.0) L 10/25/16 16:39 AST 16 U/L (13-39) 10/25/16 16:39 ALT 13 U/L (7-52) 10/25/16 16:39 Alkaline Phosphatase 40 U/L (34-104) 10/25/16 16:39 Total Protein 6.7 gm/dL (6.0-8.3) 10/25/16 16:39 Albumin 4.1 gm/dL (4.2-5.5) L 10/25/16 16:39 Globulin 2.6 gm/dL 10/25/16 16:39 Albumin/Globulin Ratio 1.6 (1.0-1.8) 10/25/16 16:39 TSH 2.35 uIU/ml (0.34-5.60) 10/25/16 16:39 Urine Source CLEAN C 10/25/16 18:00 Urine Color YELLOW 10/25/16 18:00 Urine Clarity CLEAR (CLEAR) 10/25/16 18:00 Urine pH 7.5 10/25/16 18:00 Ur Specific [place] 1.020 (1.005-1.030) 10/25/16 18:00 Urine Protein NEGATIVE mg/dL (NEGATIVE) 10/25/16 18:00 Urine Glucose (UA) NEGATIVE mg/dL (NEGATIVE) 10/25/16 18:00 Urine Ketones NEGATIVE mg/dL (NEGATIVE) 10/25/16 18:00 Urine Blood NEGATIVE (NEGATIVE) 10/25/16 18:00 Urine Nitrate NEGATIVE (NEGATIVE) 10/25/16 18:00 Urine Bilirubin NEGATIVE (NEGATIVE) 10/25/16 18:00 Urine Urobilinogen 0.2 E.U./dL (0.2 - 1.0) 10/25/16 18:00 Ur Leukocyte Esterase NEGATIVE (NEGATIVE) 10/25/16 18:00 Urine RBC NONE SEEN /hpf (0-5) 10/25/16 18:00 Urine WBC NONE SEEN /hpf (0-5) 10/25/16 18:00 Ur Epithelial Cells NONE SEEN /lpf (FEW) 10/25/16 18:00 Urine Bacteria NONE SEEN /hpf (NONE SEEN) 10/25/16 18:00 Valproic Acid 81.7 ug/mL (50.0-100.0) 10/25/16 16:39 RPR NONREACTIVE (NONREACTIVE) 10/25/16 16:39 - Physical Exam Vitals and I&O: Vital Signs Temp 97.5 F 10/28/16 21:24 Pulse 79 10/28/16 21:24 Resp 20 10/28/16 21:24 BP 122/76 10/28/16 21:24 Pulse Ox 99 10/28/16 21:24 Intake & Output 10/28/16 10/29/16 10/29/16 18:59 06:59 18:59 Intake Total 1420 Balance 1420 Intake: Oral 1420 Other: # Voids 5 # Bowel Movements 2 Active Medications: Current Medications Acetaminophen (Tylenol) 650 mg PO Q4HR PRN PRN Reason: Fever >100.5 Stop: 12/24/16 20:23 Last Admin: 10/28/16 16:38 Dose: 650 mg Acetaminophen/Hydrocodone Bitart ([place] 5mg/325mg) 1 tab PO BID PRN PRN Reason: Pain Stop: 12/24/16 20:36 Aspirin (Ecotrin) 81 mg PO DAILY [facility] Stop: 12/25/16 08:59 Last Admin: 10/28/16 08:12 Dose: 81 mg Benztropine Mesylate (Cogentin) 2 mg PO BID [facility] Stop: 12/25/16 08:59 Last Admin: 10/28/16 16:38 Dose: 2 mg Clozapine (Clozaril) 25 mg PO HS [facility] Stop: 12/27/16 20:59 Last Admin: 10/28/16 21:14 Dose: 25 mg Clozapine (Clozaril) 200 mg PO HS [facility] PRN Reason: Protocol Stop: 12/27/16 12:18 Last Admin: 10/28/16 21:14 Dose: 200 mg Divalproex Sodium (Depakote Dr) 1,000 mg PO Q12HR [facility] PRN Reason: Protocol Stop: 12/24/16 20:59 Last Admin: 10/28/16 21:15 Dose: 1,000 mg Famotidine (Pepcid) 20 mg PO DAILY [facility] Stop: 12/25/16 08:59 Last Admin: 10/28/16 08:12 Dose: 20 mg Fenofibrate (Tricor) 134 mg PO DAILY [facility] Stop: 12/25/16 08:59 Last Admin: 10/28/16 08:13 Dose: 134 mg Levothyroxine Sodium (Synthroid) 0.125 mg PO QDAC [facility] Stop: 12/25/16 07:29 Last Admin: 10/29/16 06:32 Dose: 0.125 mg Lisinopril (Zestril) 10 mg PO DAILY [facility] Stop: 12/25/16 08:59 Last Admin: 10/28/16 08:14 Dose: 10 mg Lorazepam (Ativan) 1 mg PO BID PRN; Protocol PRN Reason: Anxiety Stop: 12/24/16 20:36 Magnesium Hydroxide (Milk Of Magnesia) 30 ml PO Q6H PRN PRN Reason: Constipation Stop: 12/24/16 20:36 Last Admin: 10/27/16 00:12 Dose: 30 ml Quetiapine Fumarate (Seroquel) 500 mg PO HS [facility] PRN Reason: Protocol Stop: 12/24/16 20:59 Last Admin: 10/28/16 21:12 Dose: 500 mg Tamsulosin HCl (Flomax) 0.4 mg PO HS [facility] Stop: 12/24/16 20:59 Last Admin: 10/28/16 21:15 Dose: 0.4 mg Temazepam (Restoril) 15 mg PO HS PRN; Protocol PRN Reason: Insomnia Stop: 12/25/16 11:13 Thiamine HCl (Vitamin B1) 100 mg PO DAILY [facility] Stop: 12/25/16 08:59 Last Admin: 10/28/16 08:13 Dose: 100 mg Trazodone HCl (Desyrel) 25 mg PO HS [facility] PRN Reason: Protocol Stop: 12/24/16 20:59 Last Admin: 10/28/16 21:13 Dose: 25 mg - Procedures Procedures: Procedures Procedure Code Date OTHER GROUP THERAPY 94.44 04/29/15 Assessment/Plan - Problem List Patient Problems: All Active Problems Delusional disorder (Acute) F22 Hyponatremia (Acute) E87.1 Pain (Acute) R52
[2016-10-29 09:25] LABS: % BASOPHILS 0.4 % (0.0-2.0); % EOSINOPHILS 3.5 % (0.0-5.0); % LYMPHOCYTES 25.6 % (20.0-50.0); % MONOCYTES 10.4 % (2.0-10.0); % NEUTROPHILS 60.1 % (40.0-80.0); HEMATOCRIT 36.3 % (39.0-49.0); HEMOGLOBIN 12.4 gm/dL (13.2-17.3); MEAN CELL VOLUME 88.8 fl (80-99); MEAN CORPUSCULAR HEMOGLOBIN 30.2 pg (26.0-30.0); MEAN CORPUSCULAR HGB CONC 34.1 pg (28.0-36.0); MEAN PLATELET VOLUME 8.6 fl; NEUTROPHILE ABSOLUTE 4.4 Th/cmm (1.8-8.0); PLATELET COUNT 389 Th/cmm (150-400); RED BLOOD COUNT 4.09 Mil/cmm (4.30-5.70); RED CELL DISTRIBUTION WIDTH 14.3 % (11.5-20.0); WHITE BLOOD COUNT 7.1 Th/cmm (4.8-10.8)
[2016-10-29] MEDS: Benztropine 1 MG TAB PO SCH ×2 (10:00→16:45)
[2016-10-29] MEDS: Fenofibrate, Micronized 134 mg Cap PO SCH (10:00)
--- NOTE | 2016-10-30 01:21 | Progress Notes ---
SUBJECTIVE: The patient was seen at the dining area, having breakfast. The patient still appears to be anxious and having episodes of pacing around and being restless. OBJECTIVE: HEENT: Head is atraumatic, normocephalic. Eyes, bilateral conjunctivae are clear. NECK: Supple. No JVD. CARDIOVASCULAR: S1, S2 heard, no murmurs. PULMONARY: Clear to auscultation. GASTROINTESTINAL: Soft, nontender. Positive bowel sounds. MUSCULOSKELETAL: No edema noted. ASSESSMENT: 1. Schizophrenia. 2. Anxiety. 3. Seizure. 4. Hypertension 5 hypothyroidism 6 hyperlipidemia 7 h/o benign prostatic hypertrophy. PLAN: continue to moniter for sz control htn and any other medical problem as it araises JOB# [id number] MTDD
--- NOTE | 2016-10-30 05:46 | Progress Notes ---
SUBJECTIVE: The patient was seen, discussed with staff, chart reviewed, still anxious, restless, and still irritable. Continues to have mood swings. His speech is fast. The patient however is taking his medication, was asked to increase his ____ he was on a much higher dose in the past and that helped him. The patient's insight is limited and judgment is still impaired. ASSESSMENT: The patient is still in psychotic phase. PLAN: We will continue medication management. Continue stabilization. Continue to monitor closely. Increase Clozaril by 25 mg increments very gradually. Monitor for any sedation. JOB# [id number]
[2016-10-30] MEDS: Levothyroxine 0.125 Mg Tab PO SCH (06:40)
[2016-10-30] MEDS: Fenofibrate, Micronized 134 mg Cap PO SCH (08:24)
[2016-10-30] MEDS: Benztropine 1 MG TAB PO SCH ×2 (08:24→16:30)
--- NOTE | 2016-10-30 12:32 | General Progress Note ---
Objective - Results Result Diagrams: 10/29/16 08:55 10/25/16 16:39 Recent Labs: Laboratory Last Values WBC 7.1 Th/cmm (4.8-10.8) 10/29/16 08:55 RBC 4.09 Mil/cmm (4.30-5.70) L 10/29/16 08:55 Hgb 12.4 gm/dL (13.2-17.3) L 10/29/16 08:55 Hct 36.3 % (39.0-49.0) L 10/29/16 08:55 MCV 88.8 fl (80-99) 10/29/16 08:55 MCH 30.2 pg (26.0-30.0) H 10/29/16 08:55 MCHC Differential 34.1 pg (28.0-36.0) 10/29/16 08:55 RDW 14.3 % (11.5-20.0) 10/29/16 08:55 Plt Count 389 Th/cmm (150-400) 10/29/16 08:55 MPV 8.6 fl 10/29/16 08:55 Neutrophils % 60.1 % (40.0-80.0) 10/29/16 08:55 Lymphocytes % 25.6 % (20.0-50.0) 10/29/16 08:55 Monocytes % 10.4 % (2.0-10.0) H 10/29/16 08:55 Eosinophils % 3.5 % (0.0-5.0) 10/29/16 08:55 Basophils % 0.4 % (0.0-2.0) 10/29/16 08:55 Sodium 134 mEq/L (136-145) L 10/25/16 16:39 Potassium 4.1 mEq/L (3.5-5.1) 10/25/16 16:39 Chloride 106 mEq/L (98-107) 10/25/16 16:39 Carbon Dioxide 23.8 mEq/L (21.0-31.0) 10/25/16 16:39 Anion Gap 8.3 (7.0-16.0) 10/25/16 16:39 BUN 18 mg/dL (7-25) 10/25/16 16:39 Creatinine 1.3 mg/dL (0.7-1.3) 10/25/16 16:39 Est GFR ( Amer) > 60.0 ml/min (>90) 10/25/16 16:39 Est GFR (Non-Af Amer) > 60.0 ml/min 10/25/16 16:39 BUN/Creatinine Ratio 13.8 10/25/16 16:39 Glucose 89 mg/dL (70-105) 10/25/16 16:39 Calcium 9.8 mg/dL (8.6-10.3) 10/25/16 16:39 Total Bilirubin 0.2 mg/dL (0.3-1.0) L 10/25/16 16:39 AST 16 U/L (13-39) 10/25/16 16:39 ALT 13 U/L (7-52) 10/25/16 16:39 Alkaline Phosphatase 40 U/L (34-104) 10/25/16 16:39 Total Protein 6.7 gm/dL (6.0-8.3) 10/25/16 16:39 Albumin 4.1 gm/dL (4.2-5.5) L 10/25/16 16:39 Globulin 2.6 gm/dL 10/25/16 16:39 Albumin/Globulin Ratio 1.6 (1.0-1.8) 10/25/16 16:39 TSH 2.35 uIU/ml (0.34-5.60) 10/25/16 16:39 Urine Source CLEAN C 10/25/16 18:00 Urine Color YELLOW 10/25/16 18:00 Urine Clarity CLEAR (CLEAR) 10/25/16 18:00 Urine pH 7.5 10/25/16 18:00 Ur Specific [place] 1.020 (1.005-1.030) 10/25/16 18:00 Urine Protein NEGATIVE mg/dL (NEGATIVE) 10/25/16 18:00 Urine Glucose (UA) NEGATIVE mg/dL (NEGATIVE) 10/25/16 18:00 Urine Ketones NEGATIVE mg/dL (NEGATIVE) 10/25/16 18:00 Urine Blood NEGATIVE (NEGATIVE) 10/25/16 18:00 Urine Nitrate NEGATIVE (NEGATIVE) 10/25/16 18:00 Urine Bilirubin NEGATIVE (NEGATIVE) 10/25/16 18:00 Urine Urobilinogen 0.2 E.U./dL (0.2 - 1.0) 10/25/16 18:00 Ur Leukocyte Esterase NEGATIVE (NEGATIVE) 10/25/16 18:00 Urine RBC NONE SEEN /hpf (0-5) 10/25/16 18:00 Urine WBC NONE SEEN /hpf (0-5) 10/25/16 18:00 Ur Epithelial Cells NONE SEEN /lpf (FEW) 10/25/16 18:00 Urine Bacteria NONE SEEN /hpf (NONE SEEN) 10/25/16 18:00 Valproic Acid 81.7 ug/mL (50.0-100.0) 10/25/16 16:39 RPR NONREACTIVE (NONREACTIVE) 10/25/16 16:39 - Physical Exam Vitals and I&O: Vital Signs Temp 98.3 F 10/30/16 06:26 Pulse 83 10/30/16 08:25 Resp 19 10/30/16 06:26 BP 105/65 10/30/16 08:25 Pulse Ox 98 10/30/16 06:26 Intake & Output 10/29/16 10/30/16 10/30/16 18:59 06:59 18:59 Intake Total 1400 240 Balance 1400 240 Intake: Oral 1400 240 Other: # Voids 4 1 # Bowel Movements 1 0 Active Medications: Current Medications Acetaminophen (Tylenol) 650 mg PO Q4HR PRN PRN Reason: Fever >100.5 Stop: 12/24/16 20:23 Last Admin: 10/28/16 16:38 Dose: 650 mg Acetaminophen/Hydrocodone Bitart ([place] 5mg/325mg) 1 tab PO BID PRN PRN Reason: Pain Stop: 12/24/16 20:36 Last Admin: 10/29/16 16:45 Dose: 1 tab Aspirin (Ecotrin) 81 mg PO DAILY HEIDI Stop: 12/25/16 08:59 Last Admin: 10/30/16 08:25 Dose: 81 mg Benztropine Mesylate (Cogentin) 2 mg PO BID HEIDI Stop: 12/25/16 08:59 Last Admin: 10/30/16 08:24 Dose: 2 mg Clozapine (Clozaril) 25 mg PO HS HEIDI Stop: 12/27/16 20:59 Last Admin: 10/29/16 22:13 Dose: 25 mg Clozapine (Clozaril) 200 mg PO HS HEIDI PRN Reason: Protocol Stop: 12/27/16 12:18 Last Admin: 10/29/16 22:12 Dose: 200 mg Divalproex Sodium (Depakote Dr) 1,000 mg PO Q12HR HEIDI PRN Reason: Protocol Stop: 12/24/16 20:59 Last Admin: 10/30/16 08:23 Dose: 1,000 mg Famotidine (Pepcid) 20 mg PO DAILY HEIDI Stop: 12/25/16 08:59 Last Admin: 10/30/16 08:24 Dose: 20 mg Fenofibrate (Tricor) 134 mg PO DAILY HEIDI Stop: 12/25/16 08:59 Last Admin: 10/30/16 08:24 Dose: 134 mg Levothyroxine Sodium (Synthroid) 0.125 mg PO QDAC HEIDI Stop: 12/25/16 07:29 Last Admin: 10/30/16 06:40 Dose: 0.125 mg Lisinopril (Zestril) 10 mg PO DAILY HEIDI Stop: 12/25/16 08:59 Last Admin: 10/30/16 08:25 Dose: Not Given Lorazepam (Ativan) 1 mg PO BID PRN; Protocol PRN Reason: Anxiety Stop: 12/24/16 20:36 Last Admin: 10/29/16 10:00 Dose: 1 mg Magnesium Hydroxide (Milk Of Magnesia) 30 ml PO Q6H PRN PRN Reason: Constipation Stop: 12/24/16 20:36 Last Admin: 10/27/16 00:12 Dose: 30 ml Quetiapine Fumarate (Seroquel) 500 mg PO HS HEIDI PRN Reason: Protocol Stop: 12/24/16 20:59 Last Admin: 10/29/16 22:14 Dose: 500 mg Tamsulosin HCl (Flomax) 0.4 mg PO HS HEIDI Stop: 12/24/16 20:59 Last Admin: 10/29/16 22:15 Dose: 0.4 mg Temazepam (Restoril) 15 mg PO HS PRN; Protocol PRN Reason: Insomnia Stop: 12/25/16 11:13 Thiamine HCl (Vitamin B1) 100 mg PO DAILY HEIDI Stop: 12/25/16 08:59 Last Admin: 10/30/16 08:24 Dose: 100 mg Trazodone HCl (Desyrel) 25 mg PO HS HEIDI PRN Reason: Protocol Stop: 12/24/16 20:59 Last Admin: 10/29/16 22:15 Dose: 25 mg - Procedures Procedures: Procedures Procedure Code Date OTHER GROUP THERAPY 94.44 04/29/15 Assessment/Plan - Problem List Patient Problems: All Active Problems Delusional disorder (Acute) F22 Hyponatremia (Acute) E87.1 Pain (Acute) R52
[2016-10-31] MEDS: Levothyroxine 0.125 Mg Tab PO SCH (06:34)
--- NOTE | 2016-10-31 07:03 | Progress Notes ---
SUBJECTIVE: The patient was seen, discussed with staff. Still intrusive, restless, still hyper talkative, hyperverbal. He reports some racing thoughts; however, he said he does not hear voices and his sleep has improved. The patient is compliant with his medication, has no side effects. The patient keeps asking to increase his dose because he feels his anxiety is really high. The patient's dose of Clozaril was increased to 225 mg at nighttime and so far, has no sedation or any problems. ASSESSMENT: Schizoaffective disorder, still in psychotic phase. The patient is still highly paranoid and labile. PLAN: Continue to monitor closely. JOB# [id number]
[2016-10-31] MEDS: Fenofibrate, Micronized 134 mg Cap PO SCH (08:06)
[2016-10-31] MEDS: Benztropine 1 MG TAB PO SCH ×2 (08:07→16:47)
--- NOTE | 2016-10-31 09:27 | General Progress Note ---
Objective - Results Result Diagrams: 10/29/16 08:55 10/25/16 16:39 Recent Labs: Laboratory Last Values WBC 7.1 Th/cmm (4.8-10.8) 10/29/16 08:55 RBC 4.09 Mil/cmm (4.30-5.70) L 10/29/16 08:55 Hgb 12.4 gm/dL (13.2-17.3) L 10/29/16 08:55 Hct 36.3 % (39.0-49.0) L 10/29/16 08:55 MCV 88.8 fl (80-99) 10/29/16 08:55 MCH 30.2 pg (26.0-30.0) H 10/29/16 08:55 MCHC Differential 34.1 pg (28.0-36.0) 10/29/16 08:55 RDW 14.3 % (11.5-20.0) 10/29/16 08:55 Plt Count 389 Th/cmm (150-400) 10/29/16 08:55 MPV 8.6 fl 10/29/16 08:55 Neutrophils % 60.1 % (40.0-80.0) 10/29/16 08:55 Lymphocytes % 25.6 % (20.0-50.0) 10/29/16 08:55 Monocytes % 10.4 % (2.0-10.0) H 10/29/16 08:55 Eosinophils % 3.5 % (0.0-5.0) 10/29/16 08:55 Basophils % 0.4 % (0.0-2.0) 10/29/16 08:55 Sodium 134 mEq/L (136-145) L 10/25/16 16:39 Potassium 4.1 mEq/L (3.5-5.1) 10/25/16 16:39 Chloride 106 mEq/L (98-107) 10/25/16 16:39 Carbon Dioxide 23.8 mEq/L (21.0-31.0) 10/25/16 16:39 Anion Gap 8.3 (7.0-16.0) 10/25/16 16:39 BUN 18 mg/dL (7-25) 10/25/16 16:39 Creatinine 1.3 mg/dL (0.7-1.3) 10/25/16 16:39 Est GFR ( Amer) > 60.0 ml/min (>90) 10/25/16 16:39 Est GFR (Non-Af Amer) > 60.0 ml/min 10/25/16 16:39 BUN/Creatinine Ratio 13.8 10/25/16 16:39 Glucose 89 mg/dL (70-105) 10/25/16 16:39 Calcium 9.8 mg/dL (8.6-10.3) 10/25/16 16:39 Total Bilirubin 0.2 mg/dL (0.3-1.0) L 10/25/16 16:39 AST 16 U/L (13-39) 10/25/16 16:39 ALT 13 U/L (7-52) 10/25/16 16:39 Alkaline Phosphatase 40 U/L (34-104) 10/25/16 16:39 Total Protein 6.7 gm/dL (6.0-8.3) 10/25/16 16:39 Albumin 4.1 gm/dL (4.2-5.5) L 10/25/16 16:39 Globulin 2.6 gm/dL 10/25/16 16:39 Albumin/Globulin Ratio 1.6 (1.0-1.8) 10/25/16 16:39 TSH 2.35 uIU/ml (0.34-5.60) 10/25/16 16:39 Urine Source CLEAN C 10/25/16 18:00 Urine Color YELLOW 10/25/16 18:00 Urine Clarity CLEAR (CLEAR) 10/25/16 18:00 Urine pH 7.5 10/25/16 18:00 Ur Specific [place] 1.020 (1.005-1.030) 10/25/16 18:00 Urine Protein NEGATIVE mg/dL (NEGATIVE) 10/25/16 18:00 Urine Glucose (UA) NEGATIVE mg/dL (NEGATIVE) 10/25/16 18:00 Urine Ketones NEGATIVE mg/dL (NEGATIVE) 10/25/16 18:00 Urine Blood NEGATIVE (NEGATIVE) 10/25/16 18:00 Urine Nitrate NEGATIVE (NEGATIVE) 10/25/16 18:00 Urine Bilirubin NEGATIVE (NEGATIVE) 10/25/16 18:00 Urine Urobilinogen 0.2 E.U./dL (0.2 - 1.0) 10/25/16 18:00 Ur Leukocyte Esterase NEGATIVE (NEGATIVE) 10/25/16 18:00 Urine RBC NONE SEEN /hpf (0-5) 10/25/16 18:00 Urine WBC NONE SEEN /hpf (0-5) 10/25/16 18:00 Ur Epithelial Cells NONE SEEN /lpf (FEW) 10/25/16 18:00 Urine Bacteria NONE SEEN /hpf (NONE SEEN) 10/25/16 18:00 Valproic Acid 81.7 ug/mL (50.0-100.0) 10/25/16 16:39 RPR NONREACTIVE (NONREACTIVE) 10/25/16 16:39 - Physical Exam Vitals and I&O: Vital Signs Temp 97.7 F 10/31/16 06:35 Pulse 92 10/31/16 08:07 Resp 20 10/31/16 06:35 BP 144/79 10/31/16 08:07 Pulse Ox 96 10/31/16 06:35 Intake & Output 10/30/16 10/31/16 10/31/16 18:59 06:59 18:59 Intake Total 1200 120 Balance 1200 120 Intake: Oral 1200 120 Other: # Voids 4 3 # Bowel Movements 0 Active Medications: Current Medications Acetaminophen (Tylenol) 650 mg PO Q4HR PRN PRN Reason: Fever >100.5 Stop: 12/24/16 20:23 Last Admin: 10/30/16 16:30 Dose: 650 mg Acetaminophen/Hydrocodone Bitart ([place] 5mg/325mg) 1 tab PO BID PRN PRN Reason: Pain Stop: 12/24/16 20:36 Last Admin: 10/29/16 16:45 Dose: 1 tab Aspirin (Ecotrin) 81 mg PO DAILY HEIDI Stop: 12/25/16 08:59 Last Admin: 10/31/16 08:06 Dose: 81 mg Benztropine Mesylate (Cogentin) 2 mg PO BID HEIDI Stop: 12/25/16 08:59 Last Admin: 10/31/16 08:07 Dose: 2 mg Clozapine (Clozaril) 25 mg PO HS HEIDI Stop: 12/27/16 20:59 Last Admin: 10/30/16 21:51 Dose: 25 mg Clozapine (Clozaril) 200 mg PO HS HEIDI PRN Reason: Protocol Stop: 12/27/16 12:18 Last Admin: 10/30/16 21:54 Dose: 200 mg Divalproex Sodium (Depakote Dr) 1,000 mg PO Q12HR HEIDI PRN Reason: Protocol Stop: 12/24/16 20:59 Last Admin: 10/31/16 08:07 Dose: 1,000 mg Famotidine (Pepcid) 20 mg PO DAILY HEIDI Stop: 12/25/16 08:59 Last Admin: 10/31/16 08:07 Dose: 20 mg Fenofibrate (Tricor) 134 mg PO DAILY HEIDI Stop: 12/25/16 08:59 Last Admin: 10/31/16 08:06 Dose: 134 mg Levothyroxine Sodium (Synthroid) 0.125 mg PO QDAC HEIDI Stop: 12/25/16 07:29 Last Admin: 10/31/16 06:34 Dose: 0.125 mg Lisinopril (Zestril) 10 mg PO DAILY HEIDI Stop: 12/25/16 08:59 Last Admin: 10/31/16 08:07 Dose: 10 mg Lorazepam (Ativan) 1 mg PO BID PRN; Protocol PRN Reason: Anxiety Stop: 12/24/16 20:36 Last Admin: 10/30/16 16:30 Dose: 1 mg Magnesium Hydroxide (Milk Of Magnesia) 30 ml PO Q6H PRN PRN Reason: Constipation Stop: 12/24/16 20:36 Last Admin: 10/27/16 00:12 Dose: 30 ml Quetiapine Fumarate (Seroquel) 500 mg PO HS HEIDI PRN Reason: Protocol Stop: 12/24/16 20:59 Last Admin: 10/30/16 21:51 Dose: 500 mg Tamsulosin HCl (Flomax) 0.4 mg PO HS HEIDI Stop: 12/24/16 20:59 Last Admin: 10/30/16 21:55 Dose: 0.4 mg Temazepam (Restoril) 15 mg PO HS PRN; Protocol PRN Reason: Insomnia Stop: 12/25/16 11:13 Thiamine HCl (Vitamin B1) 100 mg PO DAILY HEIDI Stop: 12/25/16 08:59 Last Admin: 10/31/16 08:06 Dose: 100 mg Trazodone HCl (Desyrel) 25 mg PO HS HEIDI PRN Reason: Protocol Stop: 12/24/16 20:59 Last Admin: 10/30/16 21:52 Dose: 25 mg - Procedures Procedures: Procedures Procedure Code Date OTHER GROUP THERAPY 94.44 04/29/15 Assessment/Plan - Problem List Patient Problems: All Active Problems Delusional disorder (Acute) F22 Hyponatremia (Acute) E87.1 Pain (Acute) R52
[2016-10-31] MEDS: Magnesium Hydroxide (MOM) 30 mL UDC PO PRN (19:54)
--- NOTE | 2016-11-01 02:46 | Progress Notes ---
SUBJECTIVE: I met this patient, discussed with staff. The patient continues to have ____ increase his medications, reports anxiety, racing thoughts; however, his sleep has improved and his anger outbursts are decreased. The patient's paranoia is still a problem. The patient does not have any auditory hallucinations. ASSESSMENT: Schizophrenia versus schizoaffective disorder, still in psychotic phase. PLAN: Continue hospitalization. Continue supportive measure and continue stabilization. [facility]# [id number]
[2016-11-01] MEDS: Levothyroxine 0.125 Mg Tab PO SCH (06:43)
[2016-11-01] MEDS: Benztropine 1 MG TAB PO SCH ×2 (08:11→16:24)
[2016-11-01] MEDS: Fenofibrate, Micronized 134 mg Cap PO SCH (08:12)
--- NOTE | 2016-11-01 08:15 | General Progress Note ---
Objective - Results Result Diagrams: 10/29/16 08:55 10/25/16 16:39 Recent Labs: Laboratory Last Values WBC 7.1 Th/cmm (4.8-10.8) 10/29/16 08:55 RBC 4.09 Mil/cmm (4.30-5.70) L 10/29/16 08:55 Hgb 12.4 gm/dL (13.2-17.3) L 10/29/16 08:55 Hct 36.3 % (39.0-49.0) L 10/29/16 08:55 MCV 88.8 fl (80-99) 10/29/16 08:55 MCH 30.2 pg (26.0-30.0) H 10/29/16 08:55 MCHC Differential 34.1 pg (28.0-36.0) 10/29/16 08:55 RDW 14.3 % (11.5-20.0) 10/29/16 08:55 Plt Count 389 Th/cmm (150-400) 10/29/16 08:55 MPV 8.6 fl 10/29/16 08:55 Neutrophils % 60.1 % (40.0-80.0) 10/29/16 08:55 Lymphocytes % 25.6 % (20.0-50.0) 10/29/16 08:55 Monocytes % 10.4 % (2.0-10.0) H 10/29/16 08:55 Eosinophils % 3.5 % (0.0-5.0) 10/29/16 08:55 Basophils % 0.4 % (0.0-2.0) 10/29/16 08:55 Sodium 134 mEq/L (136-145) L 10/25/16 16:39 Potassium 4.1 mEq/L (3.5-5.1) 10/25/16 16:39 Chloride 106 mEq/L (98-107) 10/25/16 16:39 Carbon Dioxide 23.8 mEq/L (21.0-31.0) 10/25/16 16:39 Anion Gap 8.3 (7.0-16.0) 10/25/16 16:39 BUN 18 mg/dL (7-25) 10/25/16 16:39 Creatinine 1.3 mg/dL (0.7-1.3) 10/25/16 16:39 Est GFR ( Amer) > 60.0 ml/min (>90) 10/25/16 16:39 Est GFR (Non-Af Amer) > 60.0 ml/min 10/25/16 16:39 BUN/Creatinine Ratio 13.8 10/25/16 16:39 Glucose 89 mg/dL (70-105) 10/25/16 16:39 Calcium 9.8 mg/dL (8.6-10.3) 10/25/16 16:39 Total Bilirubin 0.2 mg/dL (0.3-1.0) L 10/25/16 16:39 AST 16 U/L (13-39) 10/25/16 16:39 ALT 13 U/L (7-52) 10/25/16 16:39 Alkaline Phosphatase 40 U/L (34-104) 10/25/16 16:39 Total Protein 6.7 gm/dL (6.0-8.3) 10/25/16 16:39 Albumin 4.1 gm/dL (4.2-5.5) L 10/25/16 16:39 Globulin 2.6 gm/dL 10/25/16 16:39 Albumin/Globulin Ratio 1.6 (1.0-1.8) 10/25/16 16:39 TSH 2.35 uIU/ml (0.34-5.60) 10/25/16 16:39 Urine Source CLEAN C 10/25/16 18:00 Urine Color YELLOW 10/25/16 18:00 Urine Clarity CLEAR (CLEAR) 10/25/16 18:00 Urine pH 7.5 10/25/16 18:00 Ur Specific [place] 1.020 (1.005-1.030) 10/25/16 18:00 Urine Protein NEGATIVE mg/dL (NEGATIVE) 10/25/16 18:00 Urine Glucose (UA) NEGATIVE mg/dL (NEGATIVE) 10/25/16 18:00 Urine Ketones NEGATIVE mg/dL (NEGATIVE) 10/25/16 18:00 Urine Blood NEGATIVE (NEGATIVE) 10/25/16 18:00 Urine Nitrate NEGATIVE (NEGATIVE) 10/25/16 18:00 Urine Bilirubin NEGATIVE (NEGATIVE) 10/25/16 18:00 Urine Urobilinogen 0.2 E.U./dL (0.2 - 1.0) 10/25/16 18:00 Ur Leukocyte Esterase NEGATIVE (NEGATIVE) 10/25/16 18:00 Urine RBC NONE SEEN /hpf (0-5) 10/25/16 18:00 Urine WBC NONE SEEN /hpf (0-5) 10/25/16 18:00 Ur Epithelial Cells NONE SEEN /lpf (FEW) 10/25/16 18:00 Urine Bacteria NONE SEEN /hpf (NONE SEEN) 10/25/16 18:00 Valproic Acid 81.7 ug/mL (50.0-100.0) 10/25/16 16:39 RPR NONREACTIVE (NONREACTIVE) 10/25/16 16:39 - Physical Exam Vitals and I&O: Vital Signs Temp 97.8 F 11/01/16 06:42 Pulse 82 11/01/16 06:42 Resp 20 11/01/16 06:42 BP 108/62 11/01/16 06:42 Pulse Ox 98 11/01/16 06:42 Intake & Output 10/31/16 11/01/16 11/01/16 18:59 06:59 18:59 Intake Total 1000 120 Balance 1000 120 Intake: Oral 1000 120 Other: # Voids 3 3 # Bowel Movements 1 Active Medications: Current Medications Acetaminophen (Tylenol) 650 mg PO Q4HR PRN PRN Reason: Fever >100.5 Stop: 12/24/16 20:23 Last Admin: 10/30/16 16:30 Dose: 650 mg Acetaminophen/Hydrocodone Bitart ([place] 5mg/325mg) 1 tab PO BID PRN PRN Reason: Pain Stop: 12/24/16 20:36 Last Admin: 10/29/16 16:45 Dose: 1 tab Aspirin (Ecotrin) 81 mg PO DAILY HEIDI Stop: 12/25/16 08:59 Last Admin: 10/31/16 08:06 Dose: 81 mg Benztropine Mesylate (Cogentin) 2 mg PO BID HEIDI Stop: 12/25/16 08:59 Last Admin: 10/31/16 16:47 Dose: 2 mg Clozapine (Clozaril) 25 mg PO HS HEIDI Stop: 12/27/16 20:59 Last Admin: 10/31/16 21:24 Dose: 25 mg Clozapine (Clozaril) 200 mg PO HS HEIDI PRN Reason: Protocol Stop: 12/27/16 12:18 Last Admin: 10/31/16 21:24 Dose: 200 mg Divalproex Sodium (Depakote Dr) 1,000 mg PO Q12HR HEIDI PRN Reason: Protocol Stop: 12/24/16 20:59 Last Admin: 10/31/16 21:25 Dose: 1,000 mg Famotidine (Pepcid) 20 mg PO DAILY HEIDI Stop: 12/25/16 08:59 Last Admin: 10/31/16 08:07 Dose: 20 mg Fenofibrate (Tricor) 134 mg PO DAILY HEIDI Stop: 12/25/16 08:59 Last Admin: 10/31/16 08:06 Dose: 134 mg Levothyroxine Sodium (Synthroid) 0.125 mg PO QDAC HEIDI Stop: 12/25/16 07:29 Last Admin: 11/01/16 06:43 Dose: 0.125 mg Lisinopril (Zestril) 10 mg PO DAILY HEIDI Stop: 12/25/16 08:59 Last Admin: 10/31/16 08:07 Dose: 10 mg Lorazepam (Ativan) 1 mg PO BID PRN; Protocol PRN Reason: Anxiety Stop: 12/24/16 20:36 Last Admin: 10/31/16 18:08 Dose: 1 mg Magnesium Hydroxide (Milk Of Magnesia) 30 ml PO Q6H PRN PRN Reason: Constipation Stop: 12/24/16 20:36 Last Admin: 10/31/16 19:54 Dose: 30 ml Quetiapine Fumarate (Seroquel) 500 mg PO HS HEIDI PRN Reason: Protocol Stop: 12/24/16 20:59 Last Admin: 10/31/16 21:25 Dose: 500 mg Tamsulosin HCl (Flomax) 0.4 mg PO HS HEIDI Stop: 12/24/16 20:59 Last Admin: 10/31/16 21:25 Dose: 0.4 mg Temazepam (Restoril) 15 mg PO HS PRN; Protocol PRN Reason: Insomnia Stop: 12/25/16 11:13 Thiamine HCl (Vitamin B1) 100 mg PO DAILY HEIDI Stop: 12/25/16 08:59 Last Admin: 10/31/16 08:06 Dose: 100 mg Trazodone HCl (Desyrel) 25 mg PO HS HEIDI PRN Reason: Protocol Stop: 12/24/16 20:59 Last Admin: 10/31/16 21:29 Dose: 25 mg - Procedures Procedures: Procedures Procedure Code Date OTHER GROUP THERAPY 94.44 04/29/15 Assessment/Plan - Problem List Patient Problems: All Active Problems Delusional disorder (Acute) F22 Hyponatremia (Acute) E87.1 Pain (Acute) R52
[2016-11-02] MEDS: Levothyroxine 0.125 Mg Tab PO SCH (06:46)
--- NOTE | 2016-11-02 08:11 | General Progress Note ---
Objective - Results Result Diagrams: 10/29/16 08:55 10/25/16 16:39 Recent Labs: Laboratory Last Values WBC 7.1 Th/cmm (4.8-10.8) 10/29/16 08:55 RBC 4.09 Mil/cmm (4.30-5.70) L 10/29/16 08:55 Hgb 12.4 gm/dL (13.2-17.3) L 10/29/16 08:55 Hct 36.3 % (39.0-49.0) L 10/29/16 08:55 MCV 88.8 fl (80-99) 10/29/16 08:55 MCH 30.2 pg (26.0-30.0) H 10/29/16 08:55 MCHC Differential 34.1 pg (28.0-36.0) 10/29/16 08:55 RDW 14.3 % (11.5-20.0) 10/29/16 08:55 Plt Count 389 Th/cmm (150-400) 10/29/16 08:55 MPV 8.6 fl 10/29/16 08:55 Neutrophils % 60.1 % (40.0-80.0) 10/29/16 08:55 Lymphocytes % 25.6 % (20.0-50.0) 10/29/16 08:55 Monocytes % 10.4 % (2.0-10.0) H 10/29/16 08:55 Eosinophils % 3.5 % (0.0-5.0) 10/29/16 08:55 Basophils % 0.4 % (0.0-2.0) 10/29/16 08:55 Sodium 134 mEq/L (136-145) L 10/25/16 16:39 Potassium 4.1 mEq/L (3.5-5.1) 10/25/16 16:39 Chloride 106 mEq/L (98-107) 10/25/16 16:39 Carbon Dioxide 23.8 mEq/L (21.0-31.0) 10/25/16 16:39 Anion Gap 8.3 (7.0-16.0) 10/25/16 16:39 BUN 18 mg/dL (7-25) 10/25/16 16:39 Creatinine 1.3 mg/dL (0.7-1.3) 10/25/16 16:39 Est GFR ( Amer) > 60.0 ml/min (>90) 10/25/16 16:39 Est GFR (Non-Af Amer) > 60.0 ml/min 10/25/16 16:39 BUN/Creatinine Ratio 13.8 10/25/16 16:39 Glucose 89 mg/dL (70-105) 10/25/16 16:39 Calcium 9.8 mg/dL (8.6-10.3) 10/25/16 16:39 Total Bilirubin 0.2 mg/dL (0.3-1.0) L 10/25/16 16:39 AST 16 U/L (13-39) 10/25/16 16:39 ALT 13 U/L (7-52) 10/25/16 16:39 Alkaline Phosphatase 40 U/L (34-104) 10/25/16 16:39 Total Protein 6.7 gm/dL (6.0-8.3) 10/25/16 16:39 Albumin 4.1 gm/dL (4.2-5.5) L 10/25/16 16:39 Globulin 2.6 gm/dL 10/25/16 16:39 Albumin/Globulin Ratio 1.6 (1.0-1.8) 10/25/16 16:39 TSH 2.35 uIU/ml (0.34-5.60) 10/25/16 16:39 Urine Source CLEAN C 10/25/16 18:00 Urine Color YELLOW 10/25/16 18:00 Urine Clarity CLEAR (CLEAR) 10/25/16 18:00 Urine pH 7.5 10/25/16 18:00 Ur Specific B[place] 1.020 (1.005-1.030) 10/25/16 18:00 Urine Protein NEGATIVE mg/dL (NEGATIVE) 10/25/16 18:00 Urine Glucose (UA) NEGATIVE mg/dL (NEGATIVE) 10/25/16 18:00 Urine Ketones NEGATIVE mg/dL (NEGATIVE) 10/25/16 18:00 Urine Blood NEGATIVE (NEGATIVE) 10/25/16 18:00 Urine Nitrate NEGATIVE (NEGATIVE) 10/25/16 18:00 Urine Bilirubin NEGATIVE (NEGATIVE) 10/25/16 18:00 Urine Urobilinogen 0.2 E.U./dL (0.2 - 1.0) 10/25/16 18:00 Ur Leukocyte Esterase NEGATIVE (NEGATIVE) 10/25/16 18:00 Urine RBC NONE SEEN /hpf (0-5) 10/25/16 18:00 Urine WBC NONE SEEN /hpf (0-5) 10/25/16 18:00 Ur Epithelial Cells NONE SEEN /lpf (FEW) 10/25/16 18:00 Urine Bacteria NONE SEEN /hpf (NONE SEEN) 10/25/16 18:00 Valproic Acid 81.7 ug/mL (50.0-100.0) 10/25/16 16:39 RPR NONREACTIVE (NONREACTIVE) 10/25/16 16:39 - Physical Exam Vitals and I&O: Vital Signs Temp 97.4 F 11/02/16 06:29 Pulse 94 11/02/16 06:29 Resp 20 11/02/16 06:29 BP 137/76 11/02/16 06:29 Pulse Ox 97 11/02/16 06:29 Intake & Output 11/01/16 11/02/16 11/02/16 18:59 06:59 18:59 Intake Total 1200 120 Balance 1200 120 Intake: Oral 1200 120 Other: # Voids 4 3 # Bowel Movements 2 Active Medications: Current Medications Acetaminophen (Tylenol) 650 mg PO Q4HR PRN PRN Reason: Fever >100.5 Stop: 12/24/16 20:23 Last Admin: 11/01/16 16:32 Dose: 650 mg Acetaminophen/Hydrocodone Bitart (Leonard 5mg/325mg) 1 tab PO BID PRN PRN Reason: Pain Stop: 12/24/16 20:36 Last Admin: 10/29/16 16:45 Dose: 1 tab Aspirin (Ecotrin) 81 mg PO DAILY HEIDI Stop: 12/25/16 08:59 Last Admin: 11/01/16 08:11 Dose: 81 mg Benztropine Mesylate (Cogentin) 2 mg PO BID HEIDI Stop: 12/25/16 08:59 Last Admin: 11/01/16 16:24 Dose: 2 mg Clozapine (Clozaril) 200 mg PO HS HEIDI PRN Reason: Protocol Stop: 12/27/16 12:18 Last Admin: 11/01/16 20:22 Dose: 200 mg Clozapine (Clozaril) 50 mg PO HS HEIDI Stop: 12/31/16 18:15 Last Admin: 11/01/16 20:21 Dose: 50 mg Divalproex Sodium (Depakote Dr) 1,000 mg PO Q12HR HEIDI PRN Reason: Protocol Stop: 12/24/16 20:59 Last Admin: 11/01/16 20:21 Dose: 1,000 mg Famotidine (Pepcid) 20 mg PO DAILY HEIDI Stop: 12/25/16 08:59 Last Admin: 11/01/16 08:12 Dose: 20 mg Fenofibrate (Tricor) 134 mg PO DAILY HEIDI Stop: 12/25/16 08:59 Last Admin: 11/01/16 08:12 Dose: 134 mg Levothyroxine Sodium (Synthroid) 0.125 mg PO QDAC HEIDI Stop: 12/25/16 07:29 Last Admin: 11/02/16 06:46 Dose: 0.125 mg Lisinopril (Zestril) 10 mg PO DAILY HEIDI Stop: 12/25/16 08:59 Last Admin: 11/01/16 08:14 Dose: Not Given Lorazepam (Ativan) 1 mg PO BID PRN; Protocol PRN Reason: Anxiety Stop: 12/24/16 20:36 Last Admin: 10/31/16 18:08 Dose: 1 mg Magnesium Hydroxide (Milk Of Magnesia) 30 ml PO Q6H PRN PRN Reason: Constipation Stop: 12/24/16 20:36 Last Admin: 10/31/16 19:54 Dose: 30 ml Quetiapine Fumarate (Seroquel) 500 mg PO HS HEIDI PRN Reason: Protocol Stop: 12/24/16 20:59 Last Admin: 11/01/16 20:19 Dose: 500 mg Tamsulosin HCl (Flomax) 0.4 mg PO HS HEIDI Stop: 12/24/16 20:59 Last Admin: 11/01/16 20:22 Dose: 0.4 mg Temazepam (Restoril) 15 mg PO HS PRN; Protocol PRN Reason: Insomnia Stop: 12/25/16 11:13 Thiamine HCl (Vitamin B1) 100 mg PO DAILY HEIDI Stop: 12/25/16 08:59 Last Admin: 11/01/16 08:11 Dose: 100 mg Trazodone HCl (Desyrel) 25 mg PO HS HEIDI PRN Reason: Protocol Stop: 12/24/16 20:59 Last Admin: 11/01/16 20:23 Dose: 25 mg - Procedures Procedures: Procedures Procedure Code Date OTHER GROUP THERAPY 94.44 04/29/15 Assessment/Plan - Problem List Patient Problems: All Active Problems Delusional disorder (Acute) F22 Hyponatremia (Acute) E87.1 Pain (Acute) R52
[2016-11-02] MEDS: Benztropine 1 MG TAB PO SCH ×2 (08:21→16:28)
[2016-11-02] MEDS: Fenofibrate, Micronized 134 mg Cap PO SCH (08:21)
--- NOTE | 2016-11-02 08:37 | Progress Notes ---
SUBJECTIVE: The patient was seen in the dining room, engaged with another patient. Per staff, the patient has been still having occasional outbursts of behavior and still complaining of episodic anxiety and still pacing around the hallway, especially at night time. OBJECTIVE: HEENT: Head is atraumatic, normocephalic. Eyes, bilateral pupils are equally round and reactive. NECK: No JVD and supple. CARDIOVASCULAR: No murmur. S1 and S2 heard. PULMONARY: Clear to auscultation. GASTROINTESTINAL: Positive bowel sounds, soft and nontender. MUSCULOSKELETAL: No edema. No weakness noted. ASSESSMENT: 1. Anxiety. 2. Schizophrenia. 3. Seizures. 4. Hypertension. 5. Hypothyroidism. 6. Hyperlipidemia. 7. History of BPH. PLAN: We will keep the patient here in [facility] for monitoring of behavior. We will have psych doctor to follow up with this patient. JOB# [id number]
[2016-11-02 08:40] LABS: % BASOPHILS 0.3 % (0.0-2.0); % EOSINOPHILS 2.4 % (0.0-5.0); % LYMPHOCYTES 25.7 % (20.0-50.0); % MONOCYTES 9.5 % (2.0-10.0); % NEUTROPHILS 62.1 % (40.0-80.0); HEMATOCRIT 34.8 % (39.0-49.0); HEMOGLOBIN 12.1 gm/dL (13.2-17.3); MEAN CELL VOLUME 86.9 fl (80-99); MEAN CORPUSCULAR HEMOGLOBIN 30.2 pg (26.0-30.0); MEAN CORPUSCULAR HGB CONC 34.7 pg (28.0-36.0); MEAN PLATELET VOLUME 8.9 fl; NEUTROPHILE ABSOLUTE 4.4 Th/cmm (1.8-8.0); PLATELET COUNT 404 Th/cmm (150-400); RED CELL DISTRIBUTION WIDTH 14.4 % (11.5-20.0); WHITE BLOOD COUNT 7.1 Th/cmm (4.8-10.8)
--- NOTE | 2016-11-02 19:30 | Progress Notes ---
SUBJECTIVE: I met this patient, discussed with staff, chart reviewed. Remains anxious, still guarded, paranoid, irritable. The patient is still intrusive. The patient said he woke up around 3 o'clock this morning. He was asking to increase his Clozaril dose, he used be on much higher dose. The patient is taking his medication. He has no side effects, no sedation or EPS. His speech is fast and pressured. He remains paranoid, but he has no auditory hallucinations. He is oriented x3. ASSESSMENT: The patient is still in psychotic phase. PLAN: We will increase the Clozaril to 250 mg by mouth at bedtime. Monitor closely. JOB# [id number]
--- NOTE | 2016-11-03 03:34 | Progress Notes ---
SUBJECTIVE: I met this patient who is still intrusive, anxious, angry, still irritable, some agitation, still hyper-talkative, continues to have somatic complaints, complaining about everything around him. He said he feels very nervous, and he was asking to increase his medications more because he is still not sleeping well at night time. ASSESSMENT: Schizoaffective disorder, still in psychotic phase. PLAN: We will increase Clozaril 300 mg p.o. at bedtime. Continue to monitor closely. Continue supportive measures. [facility]# [id number]
[2016-11-03] MEDS: Levothyroxine 0.125 Mg Tab PO SCH (06:46)
[2016-11-03] MEDS: Benztropine 1 MG TAB PO SCH ×2 (08:42→16:36)
[2016-11-03] MEDS: Fenofibrate, Micronized 134 mg Cap PO SCH (08:43)
--- NOTE | 2016-11-03 14:00 | General Progress Note ---
Subjective - Review of Systems Service Date: 11/03/16 Subjective: no change. Objective - Results Result Diagrams: 11/02/16 07:40 10/25/16 16:39 Recent Labs: Laboratory Last Values WBC 7.1 Th/cmm (4.8-10.8) 11/02/16 07:40 RBC 4.00 Mil/cmm (4.30-5.70) L 11/02/16 07:40 Hgb 12.1 gm/dL (13.2-17.3) L 11/02/16 07:40 Hct 34.8 % (39.0-49.0) L 11/02/16 07:40 MCV 86.9 fl (80-99) 11/02/16 07:40 MCH 30.2 pg (26.0-30.0) H 11/02/16 07:40 MCHC Differential 34.7 pg (28.0-36.0) 11/02/16 07:40 RDW 14.4 % (11.5-20.0) 11/02/16 07:40 Plt Count 404 Th/cmm (150-400) H 11/02/16 07:40 MPV 8.9 fl 11/02/16 07:40 Neutrophils % 62.1 % (40.0-80.0) 11/02/16 07:40 Lymphocytes % 25.7 % (20.0-50.0) 11/02/16 07:40 Monocytes % 9.5 % (2.0-10.0) 11/02/16 07:40 Eosinophils % 2.4 % (0.0-5.0) 11/02/16 07:40 Basophils % 0.3 % (0.0-2.0) 11/02/16 07:40 Sodium 134 mEq/L (136-145) L 10/25/16 16:39 Potassium 4.1 mEq/L (3.5-5.1) 10/25/16 16:39 Chloride 106 mEq/L (98-107) 10/25/16 16:39 Carbon Dioxide 23.8 mEq/L (21.0-31.0) 10/25/16 16:39 Anion Gap 8.3 (7.0-16.0) 10/25/16 16:39 BUN 18 mg/dL (7-25) 10/25/16 16:39 Creatinine 1.3 mg/dL (0.7-1.3) 10/25/16 16:39 Est GFR ( Amer) > 60.0 ml/min (>90) 10/25/16 16:39 Est GFR (Non-Af Amer) > 60.0 ml/min 10/25/16 16:39 BUN/Creatinine Ratio 13.8 10/25/16 16:39 Glucose 89 mg/dL (70-105) 10/25/16 16:39 Calcium 9.8 mg/dL (8.6-10.3) 10/25/16 16:39 Total Bilirubin 0.2 mg/dL (0.3-1.0) L 10/25/16 16:39 AST 16 U/L (13-39) 10/25/16 16:39 ALT 13 U/L (7-52) 10/25/16 16:39 Alkaline Phosphatase 40 U/L (34-104) 10/25/16 16:39 Total Protein 6.7 gm/dL (6.0-8.3) 10/25/16 16:39 Albumin 4.1 gm/dL (4.2-5.5) L 10/25/16 16:39 Globulin 2.6 gm/dL 10/25/16 16:39 Albumin/Globulin Ratio 1.6 (1.0-1.8) 10/25/16 16:39 TSH 2.35 uIU/ml (0.34-5.60) 10/25/16 16:39 Urine Source CLEAN C 10/25/16 18:00 Urine Color YELLOW 10/25/16 18:00 Urine Clarity CLEAR (CLEAR) 10/25/16 18:00 Urine pH 7.5 10/25/16 18:00 Ur Specific [place] 1.020 (1.005-1.030) 10/25/16 18:00 Urine Protein NEGATIVE mg/dL (NEGATIVE) 10/25/16 18:00 Urine Glucose (UA) NEGATIVE mg/dL (NEGATIVE) 10/25/16 18:00 Urine Ketones NEGATIVE mg/dL (NEGATIVE) 10/25/16 18:00 Urine Blood NEGATIVE (NEGATIVE) 10/25/16 18:00 Urine Nitrate NEGATIVE (NEGATIVE) 10/25/16 18:00 Urine Bilirubin NEGATIVE (NEGATIVE) 10/25/16 18:00 Urine Urobilinogen 0.2 E.U./dL (0.2 - 1.0) 10/25/16 18:00 Ur Leukocyte Esterase NEGATIVE (NEGATIVE) 10/25/16 18:00 Urine RBC NONE SEEN /hpf (0-5) 10/25/16 18:00 Urine WBC NONE SEEN /hpf (0-5) 10/25/16 18:00 Ur Epithelial Cells NONE SEEN /lpf (FEW) 10/25/16 18:00 Urine Bacteria NONE SEEN /hpf (NONE SEEN) 10/25/16 18:00 Valproic Acid 81.7 ug/mL (50.0-100.0) 10/25/16 16:39 RPR NONREACTIVE (NONREACTIVE) 10/25/16 16:39 - Physical Exam Vitals and I&O: Vital Signs Temp 97.8 F 11/02/16 23:09 Pulse 80 11/03/16 10:20 Resp 20 11/03/16 10:20 BP 114/57 11/03/16 08:43 Pulse Ox 18 11/02/16 23:09 Intake & Output 11/02/16 11/03/16 11/03/16 18:59 06:59 18:59 Intake Total 1500 Balance 1500 Intake: Oral 1500 Other: # Voids 6 2 # Bowel Movements 1 Stool Characteristics Soft Formed Active Medications: Current Medications Acetaminophen (Tylenol) 650 mg PO Q4HR PRN PRN Reason: Fever >100.5 Stop: 12/24/16 20:23 Last Admin: 11/01/16 16:32 Dose: 650 mg Acetaminophen/Hydrocodone Bitart ([place] 5mg/325mg) 1 tab PO BID PRN PRN Reason: Pain Stop: 12/24/16 20:36 Last Admin: 10/29/16 16:45 Dose: 1 tab Aspirin (Ecotrin) 81 mg PO DAILY [facility] Stop: 12/25/16 08:59 Last Admin: 11/03/16 08:42 Dose: 81 mg Benztropine Mesylate (Cogentin) 2 mg PO BID [facility] Stop: 12/25/16 08:59 Last Admin: 11/03/16 08:42 Dose: 2 mg Clozapine (Clozaril) 300 mg PO HS [facility] PRN Reason: Protocol Stop: 01/01/17 15:44 Last Admin: 02/17/17 20:57 Dose: 300 mg Divalproex Sodium (Depakote Dr) 1,000 mg PO Q12HR [facility] PRN Reason: Protocol Stop: 12/24/16 20:59 Last Admin: 11/03/16 08:43 Dose: 1,000 mg Famotidine (Pepcid) 20 mg PO DAILY [facility] Stop: 12/25/16 08:59 Last Admin: 11/03/16 08:43 Dose: 20 mg Fenofibrate (Tricor) 134 mg PO DAILY [facility] Stop: 12/25/16 08:59 Last Admin: 11/03/16 08:43 Dose: 134 mg Levothyroxine Sodium (Synthroid) 0.125 mg PO QDAC [facility] Stop: 12/25/16 07:29 Last Admin: 11/03/16 06:46 Dose: 0.125 mg Lisinopril (Zestril) 10 mg PO DAILY [facility] Stop: 12/25/16 08:59 Last Admin: 11/03/16 08:43 Dose: 10 mg Lorazepam (Ativan) 1 mg PO BID PRN; Protocol PRN Reason: Anxiety Stop: 12/24/16 20:36 Last Admin: 11/02/16 16:28 Dose: 1 mg Magnesium Hydroxide (Milk Of Magnesia) 30 ml PO Q6H PRN PRN Reason: Constipation Stop: 12/24/16 20:36 Last Admin: 10/31/16 19:54 Dose: 30 ml Quetiapine Fumarate (Seroquel) 500 mg PO HS [facility] PRN Reason: Protocol Stop: 12/24/16 20:59 Last Admin: 11/02/16 20:58 Dose: 500 mg Tamsulosin HCl (Flomax) 0.4 mg PO HS [facility] Stop: 12/24/16 20:59 Last Admin: 11/02/16 20:59 Dose: 0.4 mg Thiamine HCl (Vitamin B1) 100 mg PO DAILY [facility] Stop: 12/25/16 08:59 Last Admin: 11/03/16 08:42 Dose: 100 mg Trazodone HCl (Desyrel) 25 mg PO HS [facility] PRN Reason: Protocol Stop: 12/24/16 20:59 Last Admin: 11/02/16 21:00 Dose: 25 mg General: Alert, Oriented x3, Cooperative HEENT: Atraumatic, PERRLA, EOMI, Mucous membr. moist/pink Neck: Supple Cardiovascular: Normal S1 Lungs: Clear to auscultation, Normal air movement Abdomen: Bowel sounds, Soft, no Tender Extremities: no Clubbing, no Cyanosis, no Edema Neurological: Normal gait Skin: no Rash Psych/Mental Status: Mental status NL - Procedures Procedures: Procedures Procedure Code Date OTHER GROUP THERAPY 94.44 04/29/15 Assessment/Plan - Problem List Patient Problems: All Active Problems Delusional disorder (Acute) F22 Hyponatremia (Acute) E87.1 Pain (Acute) R52 - Assessment Assessment: Impression: 1. Seizure disorder 2. HTN. 3. Schizoaffectice disorder. 4. Psychosis. - Plan Plan: CPM.
--- NOTE | 2016-11-04 00:11 | Progress Notes ---
The patient was seen, discussed with staff, chart reviewed. Still restless, anxious, but he said he slept much better last night. The patient had an incident where he wet the bed and he was asking to wear a diaper. I discussed with patient current medication regimen. Consider decreasing dose of ____, he wants extremely high dose, discussed with the patient: We will continue current medication regimen. Continue same dose, monitor closely. [facility]# [id number]
[2016-11-04] MEDS: Levothyroxine 0.125 Mg Tab PO SCH (06:40)
[2016-11-04] MEDS: Benztropine 1 MG TAB PO SCH ×2 (08:09→16:11)
[2016-11-04] MEDS: Fenofibrate, Micronized 134 mg Cap PO SCH (08:09)
--- NOTE | 2016-11-04 17:57 | Infectious Disease Prog Note ---
Infectious Disease Subjective - Review of Systems Service Date: 11/04/16 Subjective: no change. Infectious Disease Objective - Results Result Diagrams: 11/02/16 07:40 10/25/16 16:39 Recent Labs: Laboratory Last Values WBC 7.1 Th/cmm (4.8-10.8) 11/02/16 07:40 RBC 4.00 Mil/cmm (4.30-5.70) L 11/02/16 07:40 Hgb 12.1 gm/dL (13.2-17.3) L 11/02/16 07:40 Hct 34.8 % (39.0-49.0) L 11/02/16 07:40 MCV 86.9 fl (80-99) 11/02/16 07:40 MCH 30.2 pg (26.0-30.0) H 11/02/16 07:40 MCHC Differential 34.7 pg (28.0-36.0) 11/02/16 07:40 RDW 14.4 % (11.5-20.0) 11/02/16 07:40 Plt Count 404 Th/cmm (150-400) H 11/02/16 07:40 MPV 8.9 fl 11/02/16 07:40 Neutrophils % 62.1 % (40.0-80.0) 11/02/16 07:40 Lymphocytes % 25.7 % (20.0-50.0) 11/02/16 07:40 Monocytes % 9.5 % (2.0-10.0) 11/02/16 07:40 Eosinophils % 2.4 % (0.0-5.0) 11/02/16 07:40 Basophils % 0.3 % (0.0-2.0) 11/02/16 07:40 Sodium 134 mEq/L (136-145) L 10/25/16 16:39 Potassium 4.1 mEq/L (3.5-5.1) 10/25/16 16:39 Chloride 106 mEq/L (98-107) 10/25/16 16:39 Carbon Dioxide 23.8 mEq/L (21.0-31.0) 10/25/16 16:39 Anion Gap 8.3 (7.0-16.0) 10/25/16 16:39 BUN 18 mg/dL (7-25) 10/25/16 16:39 Creatinine 1.3 mg/dL (0.7-1.3) 10/25/16 16:39 Est GFR ( Amer) > 60.0 ml/min (>90) 10/25/16 16:39 Est GFR (Non-Af Amer) > 60.0 ml/min 10/25/16 16:39 BUN/Creatinine Ratio 13.8 10/25/16 16:39 Glucose 89 mg/dL (70-105) 10/25/16 16:39 Calcium 9.8 mg/dL (8.6-10.3) 10/25/16 16:39 Total Bilirubin 0.2 mg/dL (0.3-1.0) L 10/25/16 16:39 AST 16 U/L (13-39) 10/25/16 16:39 ALT 13 U/L (7-52) 10/25/16 16:39 Alkaline Phosphatase 40 U/L (34-104) 10/25/16 16:39 Total Protein 6.7 gm/dL (6.0-8.3) 10/25/16 16:39 Albumin 4.1 gm/dL (4.2-5.5) L 10/25/16 16:39 Globulin 2.6 gm/dL 10/25/16 16:39 Albumin/Globulin Ratio 1.6 (1.0-1.8) 10/25/16 16:39 TSH 2.35 uIU/ml (0.34-5.60) 10/25/16 16:39 Urine Source CLEAN C 10/25/16 18:00 Urine Color YELLOW 10/25/16 18:00 Urine Clarity CLEAR (CLEAR) 10/25/16 18:00 Urine pH 7.5 10/25/16 18:00 Ur Specific [place] 1.020 (1.005-1.030) 10/25/16 18:00 Urine Protein NEGATIVE mg/dL (NEGATIVE) 10/25/16 18:00 Urine Glucose (UA) NEGATIVE mg/dL (NEGATIVE) 10/25/16 18:00 Urine Ketones NEGATIVE mg/dL (NEGATIVE) 10/25/16 18:00 Urine Blood NEGATIVE (NEGATIVE) 10/25/16 18:00 Urine Nitrate NEGATIVE (NEGATIVE) 10/25/16 18:00 Urine Bilirubin NEGATIVE (NEGATIVE) 10/25/16 18:00 Urine Urobilinogen 0.2 E.U./dL (0.2 - 1.0) 10/25/16 18:00 Ur Leukocyte Esterase NEGATIVE (NEGATIVE) 10/25/16 18:00 Urine RBC NONE SEEN /hpf (0-5) 10/25/16 18:00 Urine WBC NONE SEEN /hpf (0-5) 10/25/16 18:00 Ur Epithelial Cells NONE SEEN /lpf (FEW) 10/25/16 18:00 Urine Bacteria NONE SEEN /hpf (NONE SEEN) 10/25/16 18:00 Valproic Acid 81.7 ug/mL (50.0-100.0) 10/25/16 16:39 RPR NONREACTIVE (NONREACTIVE) 10/25/16 16:39 - Physical Exam Vitals and I&O: Vital Signs Temp 98.4 F 11/04/16 15:40 Pulse 96 11/04/16 15:40 Resp 20 11/04/16 15:40 BP 140/81 11/04/16 15:40 Pulse Ox 98 11/04/16 15:40 Intake & Output 11/03/16 11/04/16 11/04/16 18:59 06:59 18:59 Intake Total 1200 480 Balance 1200 480 Intake: Oral 1200 480 Other: # Voids 3 2 # Bowel Movements 1 Stool Characteristics Soft Formed Active Medications: Current Medications Acetaminophen (Tylenol) 650 mg PO Q4HR PRN PRN Reason: Fever >100.5 Stop: 12/24/16 20:23 Last Admin: 11/04/16 17:15 Dose: 650 mg Acetaminophen/Hydrocodone Bitart ([place] 5mg/325mg) 1 tab PO BID PRN PRN Reason: Pain Stop: 12/24/16 20:36 Last Admin: 10/29/16 16:45 Dose: 1 tab Aspirin (Ecotrin) 81 mg PO DAILY [facility] Stop: 12/25/16 08:59 Last Admin: 11/04/16 08:10 Dose: 81 mg Benztropine Mesylate (Cogentin) 2 mg PO BID [facility] Stop: 12/25/16 08:59 Last Admin: 11/04/16 16:11 Dose: 2 mg Clozapine (Clozaril) 300 mg PO HS [facility] PRN Reason: Protocol Stop: 01/01/17 15:44 Last Admin: 11/03/16 21:07 Dose: 300 mg Divalproex Sodium (Depakote Dr) 1,000 mg PO Q12HR [facility] PRN Reason: Protocol Stop: 12/24/16 20:59 Last Admin: 11/04/16 08:10 Dose: 1,000 mg Famotidine (Pepcid) 20 mg PO DAILY [facility] Stop: 12/25/16 08:59 Last Admin: 11/04/16 08:10 Dose: 20 mg Fenofibrate (Tricor) 134 mg PO DAILY [facility] Stop: 12/25/16 08:59 Last Admin: 11/04/16 08:09 Dose: 134 mg Levothyroxine Sodium (Synthroid) 0.125 mg PO QDAC [facility] Stop: 12/25/16 07:29 Last Admin: 11/04/16 06:40 Dose: 0.125 mg Lisinopril (Zestril) 10 mg PO DAILY [facility] Stop: 12/25/16 08:59 Last Admin: 11/04/16 08:09 Dose: 10 mg Lorazepam (Ativan) 1 mg PO BID PRN; Protocol PRN Reason: Anxiety Stop: 12/24/16 20:36 Last Admin: 11/04/16 16:11 Dose: 1 mg Magnesium Hydroxide (Milk Of Magnesia) 30 ml PO Q6H PRN PRN Reason: Constipation Stop: 12/24/16 20:36 Last Admin: 10/31/16 19:54 Dose: 30 ml Quetiapine Fumarate (Seroquel) 500 mg PO HS [facility] PRN Reason: Protocol Stop: 12/24/16 20:59 Last Admin: 11/03/16 21:06 Dose: 500 mg Tamsulosin HCl (Flomax) 0.4 mg PO HS [facility] Stop: 12/24/16 20:59 Last Admin: 11/03/16 21:05 Dose: 0.4 mg Thiamine HCl (Vitamin B1) 100 mg PO DAILY [facility] Stop: 12/25/16 08:59 Last Admin: 11/04/16 08:09 Dose: 100 mg Trazodone HCl (Desyrel) 25 mg PO HS [facility] PRN Reason: Protocol Stop: 12/24/16 20:59 Last Admin: 11/03/16 21:05 Dose: 25 mg General: no acute distress, well developed, well nourished HEENT: atraumatic, normocephalic, PERRLA, EOMI Neck: supple, no thyromegaly, no lymphadenopathy Cardiovascular: S1S2, regular Lungs: clear to auscultation bilaterally, clear to percussion Abdomen: soft, no tender, no distended Extremities: no cyanosis, no clubbing, no edema Neurological: awake, alert, oriented Skin: intact - Procedures Procedures: Procedures Procedure Code Date OTHER GROUP THERAPY 94.44 04/29/15 Infectious Disease Assmt/Plan - Problem List Patient Problems: All Active Problems Delusional disorder (Acute) F22 Hyponatremia (Acute) E87.1 Pain (Acute) R52 - Assessment Assessment: Impression: 1. Seizure disorder 2. HTN. 3. Schizoaffectice disorder. 4. Psychosis. - Plan Plan: CPM.
--- NOTE | 2016-11-05 03:49 | Progress Notes ---
PSYCHIATRIC PROGRESS NOTE TIME PATIENT SEEN: 10:45 a.m. SUBJECTIVE: Staff was spoken to. The patient is interviewed. The patient is isolative and withdrawn. The patient is currently on 1000 mg of Depakote and has been able to tolerate with no side effects. The patient is also on 500 mg of the Seroquel at night time. Mood swings are still a problem and the patient continues to be very paranoid and is very intrusive. The patient is also getting the Clozaril and has been able to tolerate. No side effects to the medications are noted at this time. ASSESSMENT: The patient is still grossly psychotic and impulsive. PLAN: To continue the patient with the current medications and follow up. [facility]# [id number]
[2016-11-05] MEDS: Levothyroxine 0.125 Mg Tab PO SCH (06:29)
[2016-11-05] MEDS: Benztropine 1 MG TAB PO SCH ×2 (08:14→17:00)
[2016-11-05] MEDS: Fenofibrate, Micronized 134 mg Cap PO SCH (08:14)
--- NOTE | 2016-11-05 23:16 | Progress Notes ---
PSYCHIATRIC PROGRESS NOTE TIME PATIENT SEEN: 8:45 a.m. SUBJECTIVE: Staff was spoken to. The patient is interviewed. Mood is noted to be irritable. Affect is constricted. Continues to be very paranoid and has been accusing things that are happening behind his back. The patient is still isolative and withdrawn. Personal hygiene continues to be poor. ASSESSMENT: The patient is still grossly psychotic. PLAN: To continue the patient with Clozaril and encouraged the patient to verbalize the concerns rather than to act out. Since Clozaril alone is not doing the job, the patient is currently on Seroquel at nighttime and patient is currently on 1000 mg of Depakote twice a day. The patient has been able to tolerate it. Plan to continue the patient with the current medications and followup. JOB# [id number]
--- NOTE | 2016-11-06 03:20 | Progress Notes ---
SUBJECTIVE: The patient was seen in the dining room. During interview, the patient has minimal interaction and is very less communicative. The patient still appears to be anxious and has some episodes of anxiety and occasional outbursts of behavior and also the patient still has some episodes of isolating himself. OBJECTIVE: HEENT: Head is normocephalic and atraumatic. Eyes: Conjunctivae are clear. Pupils are equally round and reactive. NECK: Supple. No JVD. CARDIOVASCULAR: S1 and S2 heard without murmur. PULMONARY: Clear to auscultation. GASTROINTESTINAL: Soft and nontender without guarding. MUSCULOSKELETAL: No weakness. No edema noted. ASSESSMENT: 1. Schizophrenia. 2. Anxiety. 3. Insomnia. 4. Seizure. 5. Hypertension. 6. Hyperlipidemia. 7. Hypothyroidism. 8. History of BPH. PLAN: We will keep the patient in Psych Unit and we will follow up with a psych doctor to monitor the patient's behavior. JOB# [id number]
[2016-11-06] MEDS: Levothyroxine 0.125 Mg Tab PO SCH (06:41)
[2016-11-06] MEDS: Benztropine 1 MG TAB PO SCH ×2 (08:26→16:46)
[2016-11-06] MEDS: Fenofibrate, Micronized 134 mg Cap PO SCH (08:27)
--- NOTE | 2016-11-06 13:21 | Infectious Disease Prog Note ---
Infectious Disease Subjective - Review of Systems Service Date: 11/06/16 Subjective: no change. Infectious Disease Objective - Results Result Diagrams: 11/02/16 07:40 10/25/16 16:39 Recent Labs: Laboratory Last Values WBC 7.1 Th/cmm (4.8-10.8) 11/02/16 07:40 RBC 4.00 Mil/cmm (4.30-5.70) L 11/02/16 07:40 Hgb 12.1 gm/dL (13.2-17.3) L 11/02/16 07:40 Hct 34.8 % (39.0-49.0) L 11/02/16 07:40 MCV 86.9 fl (80-99) 11/02/16 07:40 MCH 30.2 pg (26.0-30.0) H 11/02/16 07:40 MCHC Differential 34.7 pg (28.0-36.0) 11/02/16 07:40 RDW 14.4 % (11.5-20.0) 11/02/16 07:40 Plt Count 404 Th/cmm (150-400) H 11/02/16 07:40 MPV 8.9 fl 11/02/16 07:40 Neutrophils % 62.1 % (40.0-80.0) 11/02/16 07:40 Lymphocytes % 25.7 % (20.0-50.0) 11/02/16 07:40 Monocytes % 9.5 % (2.0-10.0) 11/02/16 07:40 Eosinophils % 2.4 % (0.0-5.0) 11/02/16 07:40 Basophils % 0.3 % (0.0-2.0) 11/02/16 07:40 Sodium 134 mEq/L (136-145) L 10/25/16 16:39 Potassium 4.1 mEq/L (3.5-5.1) 10/25/16 16:39 Chloride 106 mEq/L (98-107) 10/25/16 16:39 Carbon Dioxide 23.8 mEq/L (21.0-31.0) 10/25/16 16:39 Anion Gap 8.3 (7.0-16.0) 10/25/16 16:39 BUN 18 mg/dL (7-25) 10/25/16 16:39 Creatinine 1.3 mg/dL (0.7-1.3) 10/25/16 16:39 Est GFR ( Amer) > 60.0 ml/min (>90) 10/25/16 16:39 Est GFR (Non-Af Amer) > 60.0 ml/min 10/25/16 16:39 BUN/Creatinine Ratio 13.8 10/25/16 16:39 Glucose 89 mg/dL (70-105) 10/25/16 16:39 Calcium 9.8 mg/dL (8.6-10.3) 10/25/16 16:39 Total Bilirubin 0.2 mg/dL (0.3-1.0) L 10/25/16 16:39 AST 16 U/L (13-39) 10/25/16 16:39 ALT 13 U/L (7-52) 10/25/16 16:39 Alkaline Phosphatase 40 U/L (34-104) 10/25/16 16:39 Total Protein 6.7 gm/dL (6.0-8.3) 10/25/16 16:39 Albumin 4.1 gm/dL (4.2-5.5) L 10/25/16 16:39 Globulin 2.6 gm/dL 10/25/16 16:39 Albumin/Globulin Ratio 1.6 (1.0-1.8) 10/25/16 16:39 TSH 2.35 uIU/ml (0.34-5.60) 10/25/16 16:39 Urine Source CLEAN C 10/25/16 18:00 Urine Color YELLOW 10/25/16 18:00 Urine Clarity CLEAR (CLEAR) 10/25/16 18:00 Urine pH 7.5 10/25/16 18:00 Ur Specific [place] 1.020 (1.005-1.030) 10/25/16 18:00 Urine Protein NEGATIVE mg/dL (NEGATIVE) 10/25/16 18:00 Urine Glucose (UA) NEGATIVE mg/dL (NEGATIVE) 10/25/16 18:00 Urine Ketones NEGATIVE mg/dL (NEGATIVE) 10/25/16 18:00 Urine Blood NEGATIVE (NEGATIVE) 10/25/16 18:00 Urine Nitrate NEGATIVE (NEGATIVE) 10/25/16 18:00 Urine Bilirubin NEGATIVE (NEGATIVE) 10/25/16 18:00 Urine Urobilinogen 0.2 E.U./dL (0.2 - 1.0) 10/25/16 18:00 Ur Leukocyte Esterase NEGATIVE (NEGATIVE) 10/25/16 18:00 Urine RBC NONE SEEN /hpf (0-5) 10/25/16 18:00 Urine WBC NONE SEEN /hpf (0-5) 10/25/16 18:00 Ur Epithelial Cells NONE SEEN /lpf (FEW) 10/25/16 18:00 Urine Bacteria NONE SEEN /hpf (NONE SEEN) 10/25/16 18:00 Valproic Acid 81.7 ug/mL (50.0-100.0) 10/25/16 16:39 RPR NONREACTIVE (NONREACTIVE) 10/25/16 16:39 - Physical Exam Vitals and I&O: Vital Signs Temp 97.9 F 11/06/16 06:07 Pulse 98 11/06/16 11:29 Resp 20 11/06/16 11:29 BP 108/68 11/06/16 08:26 Pulse Ox 98 11/06/16 06:07 Intake & Output 11/05/16 11/06/16 11/06/16 18:59 06:59 18:59 Intake Total 3800 Balance 3800 Intake: Oral 3800 Other: # Voids 5 2 # Bowel Movements 0 0 Active Medications: Current Medications Acetaminophen (Tylenol) 650 mg PO Q4HR PRN PRN Reason: Fever >100.5 Stop: 12/24/16 20:23 Last Admin: 11/05/16 17:00 Dose: 650 mg Acetaminophen/Hydrocodone Bitart ([place] 5mg/325mg) 1 tab PO BID PRN PRN Reason: Pain Stop: 12/24/16 20:36 Last Admin: 10/29/16 16:45 Dose: 1 tab Aspirin (Ecotrin) 81 mg PO DAILY [facility] Stop: 12/25/16 08:59 Last Admin: 11/06/16 08:25 Dose: 81 mg Benztropine Mesylate (Cogentin) 2 mg PO BID [facility] Stop: 12/25/16 08:59 Last Admin: 11/06/16 08:26 Dose: 2 mg Clozapine (Clozaril) 300 mg PO HS [facility] PRN Reason: Protocol Stop: 01/01/17 15:44 Last Admin: 11/05/16 20:28 Dose: 300 mg Divalproex Sodium (Depakote Dr) 1,000 mg PO Q12HR [facility] PRN Reason: Protocol Stop: 12/24/16 20:59 Last Admin: 11/06/16 08:27 Dose: 1,000 mg Famotidine (Pepcid) 20 mg PO DAILY [facility] Stop: 12/25/16 08:59 Last Admin: 11/06/16 08:26 Dose: 20 mg Fenofibrate (Tricor) 134 mg PO DAILY [facility] Stop: 12/25/16 08:59 Last Admin: 11/06/16 08:27 Dose: 134 mg Levothyroxine Sodium (Synthroid) 0.125 mg PO QDAC [facility] Stop: 12/25/16 07:29 Last Admin: 11/06/16 06:41 Dose: 0.125 mg Lisinopril (Zestril) 10 mg PO DAILY [facility] Stop: 12/25/16 08:59 Last Admin: 11/06/16 08:26 Dose: Not Given Lorazepam (Ativan) 1 mg PO BID PRN; Protocol PRN Reason: Anxiety Stop: 12/24/16 20:36 Last Admin: 11/06/16 08:25 Dose: 1 mg Magnesium Hydroxide (Milk Of Magnesia) 30 ml PO Q6H PRN PRN Reason: Constipation Stop: 12/24/16 20:36 Last Admin: 10/31/16 19:54 Dose: 30 ml Quetiapine Fumarate (Seroquel) 500 mg PO HS [facility] PRN Reason: Protocol Stop: 12/24/16 20:59 Last Admin: 11/05/16 20:27 Dose: 500 mg Tamsulosin HCl (Flomax) 0.4 mg PO HS [facility] Stop: 12/24/16 20:59 Last Admin: 11/05/16 20:28 Dose: 0.4 mg Thiamine HCl (Vitamin B1) 100 mg PO DAILY HEIDI Stop: 12/25/16 08:59 Last Admin: 11/06/16 08:27 Dose: 100 mg Trazodone HCl (Desyrel) 25 mg PO HS [facility] PRN Reason: Protocol Stop: 12/24/16 20:59 Last Admin: 11/05/16 20:29 Dose: 25 mg General: no acute distress, well developed, well nourished HEENT: atraumatic, normocephalic, PERRLA, EOMI, moist mucous membrane Neck: supple Cardiovascular: S1S2, regular Lungs: clear to auscultation bilaterally, clear to percussion Abdomen: soft, no tender, no distended Extremities: no cyanosis, no clubbing, no edema Neurological: awake, alert Skin: intact - Procedures Procedures: Procedures Procedure Code Date OTHER GROUP THERAPY 94.44 04/29/15 Infectious Disease Assmt/Plan - Problem List Patient Problems: All Active Problems Delusional disorder (Acute) F22 Hyponatremia (Acute) E87.1 Pain (Acute) R52 - Assessment Assessment: Impression: 1. Seizure disorder 2. HTN. 3. Schizoaffectice disorder. 4. Psychosis. - Plan Plan: CPM.
--- NOTE | 2016-11-07 04:03 | Progress Notes ---
SUBJECTIVE: I met this patient, discussed with staff, and chart reviewed. Still angry, irritable, still have mood swings episodes where he is intrusive. However, he is taking his medications. His sleep and appetite are fair. Insight is still limited. Judgment remains impaired. The patient does not have any auditory hallucinations, but his paranoia is still a problem and he continues to have mood instability. ASSESSMENT: Schizoaffective disorder, still in psychotic phase. PLAN: Continue medication management, Seroquel 500 mg p.o. at bedtime. Clozaril was increased to mg p.o. at bedtime. JOB# [id number]
[2016-11-07] MEDS: Levothyroxine 0.125 Mg Tab PO SCH (06:31)
[2016-11-07] MEDS: Benztropine 1 MG TAB PO SCH ×2 (08:11→16:45)
[2016-11-07] MEDS: Fenofibrate, Micronized 134 mg Cap PO SCH (08:11)
--- NOTE | 2016-11-07 11:40 | Infectious Disease Prog Note ---
Infectious Disease Subjective - Review of Systems Service Date: 11/07/16 Subjective: no change. Infectious Disease Objective - Results Result Diagrams: 11/02/16 07:40 10/25/16 16:39 Recent Labs: Laboratory Last Values WBC 7.1 Th/cmm (4.8-10.8) 11/02/16 07:40 RBC 4.00 Mil/cmm (4.30-5.70) L 11/02/16 07:40 Hgb 12.1 gm/dL (13.2-17.3) L 11/02/16 07:40 Hct 34.8 % (39.0-49.0) L 11/02/16 07:40 MCV 86.9 fl (80-99) 11/02/16 07:40 MCH 30.2 pg (26.0-30.0) H 11/02/16 07:40 MCHC Differential 34.7 pg (28.0-36.0) 11/02/16 07:40 RDW 14.4 % (11.5-20.0) 11/02/16 07:40 Plt Count 404 Th/cmm (150-400) H 11/02/16 07:40 MPV 8.9 fl 11/02/16 07:40 Neutrophils % 62.1 % (40.0-80.0) 11/02/16 07:40 Lymphocytes % 25.7 % (20.0-50.0) 11/02/16 07:40 Monocytes % 9.5 % (2.0-10.0) 11/02/16 07:40 Eosinophils % 2.4 % (0.0-5.0) 11/02/16 07:40 Basophils % 0.3 % (0.0-2.0) 11/02/16 07:40 Sodium 134 mEq/L (136-145) L 10/25/16 16:39 Potassium 4.1 mEq/L (3.5-5.1) 10/25/16 16:39 Chloride 106 mEq/L (98-107) 10/25/16 16:39 Carbon Dioxide 23.8 mEq/L (21.0-31.0) 10/25/16 16:39 Anion Gap 8.3 (7.0-16.0) 10/25/16 16:39 BUN 18 mg/dL (7-25) 10/25/16 16:39 Creatinine 1.3 mg/dL (0.7-1.3) 10/25/16 16:39 Est GFR ( Amer) > 60.0 ml/min (>90) 10/25/16 16:39 Est GFR (Non-Af Amer) > 60.0 ml/min 10/25/16 16:39 BUN/Creatinine Ratio 13.8 10/25/16 16:39 Glucose 89 mg/dL (70-105) 10/25/16 16:39 Calcium 9.8 mg/dL (8.6-10.3) 10/25/16 16:39 Total Bilirubin 0.2 mg/dL (0.3-1.0) L 10/25/16 16:39 AST 16 U/L (13-39) 10/25/16 16:39 ALT 13 U/L (7-52) 10/25/16 16:39 Alkaline Phosphatase 40 U/L (34-104) 10/25/16 16:39 Total Protein 6.7 gm/dL (6.0-8.3) 10/25/16 16:39 Albumin 4.1 gm/dL (4.2-5.5) L 10/25/16 16:39 Globulin 2.6 gm/dL 10/25/16 16:39 Albumin/Globulin Ratio 1.6 (1.0-1.8) 10/25/16 16:39 TSH 2.35 uIU/ml (0.34-5.60) 10/25/16 16:39 Urine Source CLEAN C 10/25/16 18:00 Urine Color YELLOW 10/25/16 18:00 Urine Clarity CLEAR (CLEAR) 10/25/16 18:00 Urine pH 7.5 10/25/16 18:00 Ur Specific [place] 1.020 (1.005-1.030) 10/25/16 18:00 Urine Protein NEGATIVE mg/dL (NEGATIVE) 10/25/16 18:00 Urine Glucose (UA) NEGATIVE mg/dL (NEGATIVE) 10/25/16 18:00 Urine Ketones NEGATIVE mg/dL (NEGATIVE) 10/25/16 18:00 Urine Blood NEGATIVE (NEGATIVE) 10/25/16 18:00 Urine Nitrate NEGATIVE (NEGATIVE) 10/25/16 18:00 Urine Bilirubin NEGATIVE (NEGATIVE) 10/25/16 18:00 Urine Urobilinogen 0.2 E.U./dL (0.2 - 1.0) 10/25/16 18:00 Ur Leukocyte Esterase NEGATIVE (NEGATIVE) 10/25/16 18:00 Urine RBC NONE SEEN /hpf (0-5) 10/25/16 18:00 Urine WBC NONE SEEN /hpf (0-5) 10/25/16 18:00 Ur Epithelial Cells NONE SEEN /lpf (FEW) 10/25/16 18:00 Urine Bacteria NONE SEEN /hpf (NONE SEEN) 10/25/16 18:00 Valproic Acid 81.7 ug/mL (50.0-100.0) 10/25/16 16:39 RPR NONREACTIVE (NONREACTIVE) 10/25/16 16:39 - Physical Exam Vitals and I&O: Vital Signs Temp 97.2 F 11/07/16 05:56 Pulse 98 11/07/16 10:30 Resp 20 11/07/16 10:30 BP 124/76 11/07/16 08:11 Pulse Ox 97 11/07/16 05:56 Intake & Output 11/06/16 11/07/16 11/07/16 18:59 06:59 18:59 Intake Total 1500 120 Balance 1500 120 Intake: Oral 1500 120 Other: # Voids 4 3 # Bowel Movements 1 Stool Characteristics Formed Active Medications: Current Medications Acetaminophen (Tylenol) 650 mg PO Q4HR PRN PRN Reason: Fever >100.5 Stop: 12/24/16 20:23 Last Admin: 11/06/16 16:46 Dose: 650 mg Acetaminophen/Hydrocodone Bitart ([place] 5mg/325mg) 1 tab PO BID PRN PRN Reason: Pain Stop: 12/24/16 20:36 Last Admin: 10/29/16 16:45 Dose: 1 tab Aspirin (Ecotrin) 81 mg PO DAILY [facility] Stop: 12/25/16 08:59 Last Admin: 11/07/16 08:11 Dose: 81 mg Benztropine Mesylate (Cogentin) 2 mg PO BID [facility] Stop: 12/25/16 08:59 Last Admin: 11/07/16 08:11 Dose: 2 mg Clozapine (Clozaril) 300 mg PO HS [facility] PRN Reason: Protocol Stop: 01/01/17 15:44 Last Admin: 11/06/16 20:59 Dose: 300 mg Divalproex Sodium (Depakote Dr) 1,000 mg PO Q12HR [facility] PRN Reason: Protocol Stop: 12/24/16 20:59 Last Admin: 11/07/16 08:11 Dose: 1,000 mg Famotidine (Pepcid) 20 mg PO DAILY [facility] Stop: 12/25/16 08:59 Last Admin: 11/07/16 08:11 Dose: 20 mg Fenofibrate (Tricor) 134 mg PO DAILY [facility] Stop: 12/25/16 08:59 Last Admin: 11/07/16 08:11 Dose: 134 mg Levothyroxine Sodium (Synthroid) 0.125 mg PO QDAC [facility] Stop: 12/25/16 07:29 Last Admin: 11/07/16 06:31 Dose: 0.125 mg Lisinopril (Zestril) 10 mg PO DAILY [facility] Stop: 12/25/16 08:59 Last Admin: 11/07/16 08:11 Dose: 10 mg Lorazepam (Ativan) 1 mg PO BID PRN; Protocol PRN Reason: Anxiety Stop: 12/24/16 20:36 Last Admin: 11/07/16 08:11 Dose: 1 mg Magnesium Hydroxide (Milk Of Magnesia) 30 ml PO Q6H PRN PRN Reason: Constipation Stop: 12/24/16 20:36 Last Admin: 10/31/16 19:54 Dose: 30 ml Quetiapine Fumarate (Seroquel) 400 mg PO HS [facility] PRN Reason: Protocol Stop: 01/05/17 18:31 Last Admin: 11/06/16 20:58 Dose: 400 mg Tamsulosin HCl (Flomax) 0.4 mg PO HS [facility] Stop: 12/24/16 20:59 Last Admin: 11/06/16 20:58 Dose: 0.4 mg Thiamine HCl (Vitamin B1) 100 mg PO DAILY [facility] Stop: 12/25/16 08:59 Last Admin: 11/07/16 08:11 Dose: 100 mg Trazodone HCl (Desyrel) 25 mg PO HS [facility] PRN Reason: Protocol Stop: 12/24/16 20:59 Last Admin: 11/06/16 20:58 Dose: 25 mg General: no acute distress, well developed, well nourished HEENT: atraumatic, normocephalic, PERRLA, EOMI Neck: supple, no thyromegaly, no lymphadenopathy Cardiovascular: S1S2, regular Lungs: clear to auscultation bilaterally, clear to percussion ( ) Abdomen: soft, no tender, no distended Extremities: no cyanosis, no clubbing, no edema Neurological: awake, alert, oriented, CN 2-12 intact Skin: intact - Procedures Procedures: Procedures Procedure Code Date OTHER GROUP THERAPY 94.44 04/29/15 Infectious Disease Assmt/Plan - Problem List Patient Problems: All Active Problems Delusional disorder (Acute) F22 Hyponatremia (Acute) E87.1 Pain (Acute) R52 - Assessment Assessment: Impression: 1. Seizure disorder 2. HTN. 3. Schizoaffectice disorder. 4. Psychosis. - Plan Plan: CPM.
--- NOTE | 2016-11-07 23:41 | Progress Notes ---
SUBJECTIVE: The patient was seen today still intrusive, restless, but he is less agitated and his paranoia is decreasing. The patient denied having any hallucinations, speech is still fast. OBJECTIVE: Alert, awake, oriented x 3. ASSESSMENT: The patient is stabilizing gradually in this setting. PLAN: We will continue hospitalization. Continue supportive measure, continue medication management. JOB# [id number]
[2016-11-08] MEDS: Levothyroxine 0.125 Mg Tab PO SCH (06:38)
[2016-11-08] MEDS: Benztropine 1 MG TAB PO SCH ×2 (08:22→16:23)
[2016-11-08] MEDS: Fenofibrate, Micronized 134 mg Cap PO SCH (08:23)
--- NOTE | 2016-11-08 13:25 | Infectious Disease Prog Note ---
Infectious Disease Subjective - Review of Systems Service Date: 11/08/16 Subjective: no change. Infectious Disease Objective - Results Result Diagrams: 11/02/16 07:40 10/25/16 16:39 Recent Labs: Laboratory Last Values WBC 7.1 Th/cmm (4.8-10.8) 11/02/16 07:40 RBC 4.00 Mil/cmm (4.30-5.70) L 11/02/16 07:40 Hgb 12.1 gm/dL (13.2-17.3) L 11/02/16 07:40 Hct 34.8 % (39.0-49.0) L 11/02/16 07:40 MCV 86.9 fl (80-99) 11/02/16 07:40 MCH 30.2 pg (26.0-30.0) H 11/02/16 07:40 MCHC Differential 34.7 pg (28.0-36.0) 11/02/16 07:40 RDW 14.4 % (11.5-20.0) 11/02/16 07:40 Plt Count 404 Th/cmm (150-400) H 11/02/16 07:40 MPV 8.9 fl 11/02/16 07:40 Neutrophils % 62.1 % (40.0-80.0) 11/02/16 07:40 Lymphocytes % 25.7 % (20.0-50.0) 11/02/16 07:40 Monocytes % 9.5 % (2.0-10.0) 11/02/16 07:40 Eosinophils % 2.4 % (0.0-5.0) 11/02/16 07:40 Basophils % 0.3 % (0.0-2.0) 11/02/16 07:40 Sodium 134 mEq/L (136-145) L 10/25/16 16:39 Potassium 4.1 mEq/L (3.5-5.1) 10/25/16 16:39 Chloride 106 mEq/L (98-107) 10/25/16 16:39 Carbon Dioxide 23.8 mEq/L (21.0-31.0) 10/25/16 16:39 Anion Gap 8.3 (7.0-16.0) 10/25/16 16:39 BUN 18 mg/dL (7-25) 10/25/16 16:39 Creatinine 1.3 mg/dL (0.7-1.3) 10/25/16 16:39 Est GFR ( Amer) > 60.0 ml/min (>90) 10/25/16 16:39 Est GFR (Non-Af Amer) > 60.0 ml/min 10/25/16 16:39 BUN/Creatinine Ratio 13.8 10/25/16 16:39 Glucose 89 mg/dL (70-105) 10/25/16 16:39 Calcium 9.8 mg/dL (8.6-10.3) 10/25/16 16:39 Total Bilirubin 0.2 mg/dL (0.3-1.0) L 10/25/16 16:39 AST 16 U/L (13-39) 10/25/16 16:39 ALT 13 U/L (7-52) 10/25/16 16:39 Alkaline Phosphatase 40 U/L (34-104) 10/25/16 16:39 Total Protein 6.7 gm/dL (6.0-8.3) 10/25/16 16:39 Albumin 4.1 gm/dL (4.2-5.5) L 10/25/16 16:39 Globulin 2.6 gm/dL 10/25/16 16:39 Albumin/Globulin Ratio 1.6 (1.0-1.8) 10/25/16 16:39 TSH 2.35 uIU/ml (0.34-5.60) 10/25/16 16:39 Urine Source CLEAN C 10/25/16 18:00 Urine Color YELLOW 10/25/16 18:00 Urine Clarity CLEAR (CLEAR) 10/25/16 18:00 Urine pH 7.5 10/25/16 18:00 Ur Specific [place] 1.020 (1.005-1.030) 10/25/16 18:00 Urine Protein NEGATIVE mg/dL (NEGATIVE) 10/25/16 18:00 Urine Glucose (UA) NEGATIVE mg/dL (NEGATIVE) 10/25/16 18:00 Urine Ketones NEGATIVE mg/dL (NEGATIVE) 10/25/16 18:00 Urine Blood NEGATIVE (NEGATIVE) 10/25/16 18:00 Urine Nitrate NEGATIVE (NEGATIVE) 10/25/16 18:00 Urine Bilirubin NEGATIVE (NEGATIVE) 10/25/16 18:00 Urine Urobilinogen 0.2 E.U./dL (0.2 - 1.0) 10/25/16 18:00 Ur Leukocyte Esterase NEGATIVE (NEGATIVE) 10/25/16 18:00 Urine RBC NONE SEEN /hpf (0-5) 10/25/16 18:00 Urine WBC NONE SEEN /hpf (0-5) 10/25/16 18:00 Ur Epithelial Cells NONE SEEN /lpf (FEW) 10/25/16 18:00 Urine Bacteria NONE SEEN /hpf (NONE SEEN) 10/25/16 18:00 Valproic Acid 81.7 ug/mL (50.0-100.0) 10/25/16 16:39 RPR NONREACTIVE (NONREACTIVE) 10/25/16 16:39 - Physical Exam Vitals and I&O: Vital Signs Temp 97.6 F 11/08/16 06:58 Pulse 81 11/08/16 10:41 Resp 20 11/08/16 10:41 BP 141/83 11/08/16 08:22 Pulse Ox 98 11/08/16 06:58 Intake & Output 11/07/16 11/08/16 11/08/16 18:59 06:59 18:59 Intake Total 1999 Balance 1999 Intake: Oral 1999 Other: # Voids 7 # Bowel Movements 1 Stool Characteristics Formed Formed Active Medications: Current Medications Acetaminophen (Tylenol) 650 mg PO Q4HR PRN PRN Reason: Fever >100.5 Stop: 12/24/16 20:23 Last Admin: 11/07/16 16:44 Dose: 650 mg Acetaminophen/Hydrocodone Bitart ([place] 5mg/325mg) 1 tab PO BID PRN PRN Reason: Pain Stop: 12/24/16 20:36 Last Admin: 10/29/16 16:45 Dose: 1 tab Aspirin (Ecotrin) 81 mg PO DAILY [facility] Stop: 12/25/16 08:59 Last Admin: 11/08/16 08:23 Dose: 81 mg Benztropine Mesylate (Cogentin) 2 mg PO BID [facility] Stop: 12/25/16 08:59 Last Admin: 11/08/16 08:22 Dose: 2 mg Clozapine (Clozaril) 300 mg PO HS [facility] PRN Reason: Protocol Stop: 01/01/17 15:44 Last Admin: 11/07/16 20:38 Dose: 300 mg Divalproex Sodium (Depakote Dr) 1,000 mg PO Q12HR [facility] PRN Reason: Protocol Stop: 12/24/16 20:59 Last Admin: 11/08/16 08:23 Dose: 1,000 mg Famotidine (Pepcid) 20 mg PO DAILY [facility] Stop: 12/25/16 08:59 Last Admin: 11/08/16 08:23 Dose: 20 mg Fenofibrate (Tricor) 134 mg PO DAILY [facility] Stop: 12/25/16 08:59 Last Admin: 11/08/16 08:23 Dose: 134 mg Levothyroxine Sodium (Synthroid) 0.125 mg PO QDAC [facility] Stop: 12/25/16 07:29 Last Admin: 11/08/16 06:38 Dose: 0.125 mg Lisinopril (Zestril) 10 mg PO DAILY [facility] Stop: 12/25/16 08:59 Last Admin: 11/08/16 08:22 Dose: 10 mg Lorazepam (Ativan) 1 mg PO BID PRN; Protocol PRN Reason: Anxiety Stop: 12/24/16 20:36 Last Admin: 11/08/16 08:23 Dose: 1 mg Magnesium Hydroxide (Milk Of Magnesia) 30 ml PO Q6H PRN PRN Reason: Constipation Stop: 12/24/16 20:36 Last Admin: 10/31/16 19:54 Dose: 30 ml Quetiapine Fumarate (Seroquel) 400 mg PO HS [facility] PRN Reason: Protocol Stop: 01/05/17 18:31 Last Admin: 11/07/16 20:40 Dose: 400 mg Tamsulosin HCl (Flomax) 0.4 mg PO HS [facility] Stop: 12/24/16 20:59 Last Admin: 11/07/16 20:39 Dose: 0.4 mg Thiamine HCl (Vitamin B1) 100 mg PO DAILY [facility] Stop: 12/25/16 08:59 Last Admin: 11/08/16 08:23 Dose: 100 mg Trazodone HCl (Desyrel) 25 mg PO HS [facility] PRN Reason: Protocol Stop: 12/24/16 20:59 Last Admin: 11/07/16 20:39 Dose: 25 mg General: no acute distress, well developed, well nourished HEENT: atraumatic, normocephalic, PERRLA, EOMI, moist mucous membrane Neck: supple Cardiovascular: S1S2, regular Lungs: clear to auscultation bilaterally, clear to percussion Abdomen: soft, no tender, no distended Extremities: no cyanosis, no clubbing, no edema Neurological: awake, alert, oriented - Procedures Procedures: Procedures Procedure Code Date OTHER GROUP THERAPY 94.44 04/29/15 Infectious Disease Assmt/Plan - Problem List Patient Problems: All Active Problems Delusional disorder (Acute) F22 Hyponatremia (Acute) E87.1 Pain (Acute) R52 - Assessment Assessment: Impression: 1. Seizure disorder 2. HTN. 3. Schizoaffectice disorder. 4. Psychosis. - Plan Plan: CPM.
--- NOTE | 2016-11-08 20:16 | Discharge Summary ---
REASON FOR HOSPITALIZATION: Schizoaffective disorder and psychotic phase. HISTORY OF PRESENT ILLNESS: The patient is a 55-year-old man with a history of chronic mental illness, was sent from his detention facility for increased agitation, anger outbursts, more paranoid, having trouble sleeping at night time. The patient was evaluated and was admitted. HOSPITALIZATION COURSE: Individual, milieu and group therapy started. Medications were implemented. Clozaril dose was increased to 300 mg p.o. at bedtime gradually because he was having trouble sleeping, was becoming more paranoid and agitated. His agitation resolved. He responded favorably to treatment on 11/07/2016. The patient was discharged back to his nursing facility. He was not aggressive or agitated. The patient was compliant with his medications. The patient was not suicidal. His sleep and appetite were fair. FINAL DIAGNOSIS: Schizoaffective disorder. MEDICAL HISTORY: History of hypertension, history of seizures, history of BPH, hypothyroidism and hyperlipidemia. DISPOSITION: The patient was discharged to [facility]. EXPECTED COURSE OF RECOVERY: The patient's chronic condition. [facility]# [id number]
--- NOTE | 2016-11-09 02:56 | Progress Notes ---
SUBJECTIVE: The patient was seen in the dining room. The patient is still restless, but less agitated and less paranoid. The patient started to develop ____ difficulty to go to urinate. OBJECTIVE: HEAD: Atraumatic, normocephalic. EYES: Bilateral conjunctivae are clear. CARDIOVASCULAR: S1 and S2 heard without murmur. PULMONARY: Clear to auscultation. GASTROINTESTINAL: Soft and nontender without guarding. Positive bowel sounds. GENITOURINARY: No CVA tenderness. MUSCULOSKELETAL: No edema. No weakness noted. ASSESSMENT: 1. Schizophrenia. 2. Anxiety. 3. Insomnia. 4. Hypertension. 5. Seizure. 6. Hyperlipidemia. 7. Hypothyroidism. 8. History of benign prostatic hypertrophy. PLAN: We will check the patient's PSA in the morning. We will continue to keep the patient in the Geropsych Unit. We will follow up with a psychiatrist to monitor the patient's behavior. JOB# [id number]
== END 2016-11-08 19:48 | DRG 885 ==
LOC: ER 16:20 → GERO 19:40
DX: F25.9 Schizoaffective disorder, unspecified (principal); E87.1 Hypo-osmolality and hyponatremia; I10 Essential (primary) hypertension; E78.5 Hyperlipidemia, unspecified; K21.9 Gastro-esophageal reflux disease without esophagitis; E03.9 Hypothyroidism, unspecified; N40.0 Benign prostatic hyperplasia without lower urinary tract symptoms; G40.909 Epilepsy, unspecified, not intractable, without status epilepticus; F41.9 Anxiety disorder, unspecified; F29 Unspecified psychosis not due to a substance or known physiological condition; Z79.82 Long term (current) use of aspirin; Z82.49 Family history of ischemic heart disease and other diseases of the circulatory system
CPT/HCPCS: 36415-UA; 80053-TC; 80164-TC; 81001-TC; 84443-TC; 85025-TC; 86592-TC; 90899; 93005; G0410; Z7610

== ENCOUNTER 2017-07-29 23:41 | Emergency (ER) | payer MEDICARE, MEDICAID ==
--- NOTE | 2017-07-30 01:23 | ED Physician Chart ---
ED Chief Complaint/HPI - Patient Information Date Seen:: 07/30/17 Time Seen:: 00:30 Chief Complaint:: cough History of Present Illness:: location: general quality; cough severity: mild duration; two days context: pt with hx of URI, cough. abnormal chest xray. symptoms duration 2 days. no fever, no hemoptysis. pt tolerates regular diet. reports no pain complaint. pt reports some nasal congestion, clear rhinorrhea, says he has to wipe his nose more frequently. mod factors: none assoc s/s: none hx from pt. and medics and SNF RN Allergies:: Allergies Allergy/AdvReac Type Severity Reaction Status Date / Time No Known Allergies Allergy Verified 07/30/17 00:20 Vitals:: Vital Signs - 8 hr 07/29/17 23:50 Temp 98.6 F HR 87 RR 18 BP 115/67 O2 Sat % 98 Historian:: Patient, EMS, Medical Records, Other Review:: Nurse's Note Reviewed, EMS run form Reviewed ED Review of Systems - Review of Systems General/Constitutional: No fever, No diaphoresis, No loss of appetite Skin: No rash Eyes: No loss of vision ENT: No sore throat Neck: No stiffness Pulmonary: Cough, No sputum GI: No vomiting Allergic/Immuno: No angioedema Neurological: No seizure ED Past Medical History - Past Medical History Past Medical History: HTN, Dyslipidemia, Seizures, Thyroid disorder, Other ( benign prostate hypertrophy) Family History: None Social History: Non Smoker, No Alcohol, No Drug Use, Single, Care Facility Surgical History: None Psychiatricy History: Depression, Bipolar Medication: Reviewed Family Medical History - Family Member Mother History Unknown: Yes Ethnicity: Unknown Living Status: Still Living Hx Family Cancer: No Hx Family Coronary Artery Disease: No Hx Family Congestive Heart Failure: No Hx Family Hypertension: No Hx Family Stroke: No Hx Family Diabetes: No Hx Family Seizures: No Hx Family Dementia: No Hx Family AIDS: No Hx Family HIV: No Hx Family COPD: No Hx Family Hepatitis: No Hx Family Psychiatric Problems: No Hx Family Tuberculosis: No Father History Unknown: Yes Ethnicity: Unknown Living Status: Still Living Hx Family Cancer: No Hx Family Coronary Artery Disease: No Hx Family Congestive Heart Failure: No Hx Family Hypertension: No Hx Family Stroke: No Hx Family Diabetes: No Hx Family Seizures: No Hx Family Dementia: No Hx Family AIDS: No Hx Family HIV: No Hx Family COPD: No Hx Family Hepatitis: No Hx Family Psychiatric Problems: No Hx Family Tuberculosis: No ED Physical Exam - Physical Examination General/Constitutional: Awake, Well-developed, well-nourished, Alert, No distress, GCS 15, Non-toxic appearing, Ambulatory Head: Atraumatic Eyes: Lids, conjuctiva normal, PERRL, EOMI Skin: Nl inspection, No rash, No skin lesions, No ecchymosis, Well hydrated, No lymphadenopathy ENMT: External ears, nose nl, Nasal exam nl, Lips, teeth, gums nl, Oropharynx nl Neck: Nontender, No nuchal rigidity Respiratory: Nl effort/Exclusion, Clear to Auscultation (scant crackles bilateral base), No Wheeze/Rhonchi/Rales Cardio Vascular: RRR, No murmur, gallop, rubs, NL S1 S2 GI: No tenderness/rebounding/guarding, Nondistended : No CVA tenderness Extremities: No tenderness or effusion, Full ROM, normal strength in all extremities, No edema, Normal digits & nails Neuro/Psych: Alert/oriented, Normal sensory exam, Normal motor strength, Judgement/insight normal, Normal gait, No focal deficits Misc: Normal back, No paraspinal tenderness ED Labs/Radiology/EKG Results - Lab Results Results: Laboratory Tests 07/30/17 07/30/17 01:18 01:18 WBC 8.7 D RBC 4.00 L Hgb 11.6 L Hct 35.2 L D MCV 88.2 MCH 29.0 MCHC Differential 32.9 RDW 13.9 Plt Count 337 MPV 8.2 Neutrophils % 60.3 Lymphocytes % 22.0 Monocytes % 10.5 H Eosinophils % 6.6 H Basophils % 0.6 Sodium 133 L Potassium 4.1 Chloride 103 Carbon Dioxide 23.6 Anion Gap 10.5 BUN 23 Creatinine 1.1 Est GFR ( Amer) > 60.0 Est GFR (Non-Af Amer) > 60.0 BUN/Creatinine Ratio 20.9 Glucose 127 H Calcium 9.7 Total Bilirubin 0.2 L AST 44 H ALT 49 Alkaline Phosphatase 51 Total Protein 7.1 Albumin 3.8 L Globulin 3.3 Albumin/Globulin Ratio 1.2 - Radiology Results Results: CXR no acute pneumothorax no acute rib fracture normal cardiac silhouette no acute findings ER READ - EKG Interpretations Comments:: EKG sinus tachycardia 102 probable left atrial enlargement borderline left axis deviation consider anterior infarct pt with no chest pain abnormal EKG with chronic findings ER READ ED Assessment - Assessment General Assessment: pt stable while in ER. ED Septic Shock - . Is Septic Shock (SBP<90, OR Lactate>4 mmol\L) present?: No - <6hrs of presentation: Vital Signs: Vital Signs - 8 hr //17 23:50 Temp 98.6 F HR 87 RR 18 BP 115/67 O2 Sat % 98 ED Reassessment (Disposition) - Reassessment Reassessment:: medical decision making pt stable while in ER some mild clear rhinorrhea no cough observed during physician exam. CXR no acute findings symptoms of URI, viral normal labs pt case discussed with Dr. Rogers advise return to SNF and resume care pt is made aware of clinical decision making. Reassessment Condition:: Unchanged - Diagnosis Diagnosis:: upper respiratory infection, viral - Aftercare/Follow up Instructions Aftercare/Follow-Up Instructions:: Refer to Discharge Instructions Medication Prescribed:: none - Patient Disposition Discharge/Transfer:: Intermediate Care - SNF Condition at Disposition:: Stable
[2017-07-30 01:25] LABS: % BASOPHILS 0.6 % (0.0-2.0); % EOSINOPHILS 6.6 % (0.0-5.0); % MONOCYTES 10.5 % (2.0-10.0); % NEUTROPHILS 60.3 % (40.0-80.0); HEMOGLOBIN 11.6 gm/dL (12-16); MEAN CELL VOLUME 88.2 fl (80-99); MEAN CORPUSCULAR HGB CONC 32.9 pg (28.0-36.0); MEAN PLATELET VOLUME 8.2 fl; NEUTROPHILE ABSOLUTE 5.2 Th/cmm (1.8-8.0); PLATELET COUNT 337 Th/cmm (150-400); RED CELL DISTRIBUTION WIDTH 13.9 % (11.5-20.0)
[2017-07-30 01:29] LABS: HEMATOCRIT 35.2 % (41.0-60); WHITE BLOOD COUNT 8.7 Th/cmm (4.8-10.8)
[2017-07-30 01:40] LABS: ALB/GLOB RATIO 1.2 (1.0-1.8); ALKALINE PHOSPHATASE 51 U/L (34-104); ANION GAP 10.5 (7.0-16.0); BILIRUBIN,TOTAL 0.2 mg/dL (0.3-1.0); BUN - UREA NITROGEN 23 mg/dL (7-25); BUN/CREATININE RATIO 20.9; CALCIUM SERUM 9.7 mg/dL (8.6-10.3); CARBON DIOXIDE 23.6 mEq/L (21.0-31.0); CHLORIDE 103 mEq/L (98-107); CREATININE - SERUM 1.1 mg/dL (0.7-1.3); GLUCOSE 127 mg/dL (70-105); POTASSIUM SERUM 4.1 mEq/L (3.5-5.1); SGOT 44 U/L (13-39); SGPT/ALT 49 U/L (7-52); SODIUM SERUM 133 mEq/L (136-145)
--- NOTE | 2017-07-30 07:43 | Diagnostic Imaging Report ---
CHEST X-RAY: AP view INDICATION: Cough COMPARISON: Chest x-ray 01/25/[address] abdomen and pelvis on 01/26/2017 FINDINGS: No focal consolidation or effusions. A small to moderate hiatal hernia is noted. Heart size is normal. Osseous structures are intact. Old seventh left rib fracture is noted. IMPRESSION: No focal airspace consolidation identified Small to moderate sized hiatal hernia. This is also seen on previous CT examination of the abdomen and pelvis on 01/26/2017.
== END 2017-07-30 02:30 ==
LOC: ER 23:41
DX: J06.9 Acute upper respiratory infection, unspecified (principal); I10 Essential (primary) hypertension; E78.5 Hyperlipidemia, unspecified
CPT/HCPCS: 36415-UA; 71010-TC; 80053-TC; 85025-TC; 93005

== ENCOUNTER 2017-08-09 09:10 | Inpatient (IN) | payer MEDICARE, MEDICAID ==
--- NOTE | 2017-08-09 09:30 | ED Physician Chart ---
ED Chief Complaint/HPI - Patient Information Date Seen:: 08/09/17 Time Seen:: 09:23 Chief Complaint:: Left leg edema History of Present Illness:: 56 yo male who is a resident at a SNF facility, was brought to ER for evaluation of left leg edema and pain for 3 days. The patient also complained low back pain. He stated dry cough for a few days. Allergies:: Allergies Allergy/AdvReac Type Severity Reaction Status Date / Time No Known Allergies Allergy Verified 07/30/17 00:20 Vitals:: Vital Signs - 8 hr 08/09/17 09:17 Temp 97.6 F HR 88 RR 15 BP 119/72 O2 Sat % 98 ED Review of Systems - Review of Systems General/Constitutional: No fever, No chills Skin: Skin lesions Head: No headache Eyes: No loss of vision ENT: No nasal drainage Neck: No neck pain Cardio Vascular: No chest pain GI: No nausea, No vomiting Musculoskeletal: Back pain ED Past Medical History - Past Medical History Past Medical History: HTN, Dyslipidemia, PUD/GERD, Thyroid disorder ( Hypothyroidism), Dementia, Other (anemea, BPH) Social History: Non Smoker, No Alcohol, No Drug Use Surgical History: None Psychiatricy History: Schizophrenia, Dementia, Other (Psychosis) Family Medical History - Family Member Mother History Unknown: Yes Ethnicity: Unknown Living Status: Still Living Hx Family Cancer: No Hx Family Coronary Artery Disease: No Hx Family Congestive Heart Failure: No Hx Family Hypertension: No Hx Family Stroke: No Hx Family Diabetes: No Hx Family Seizures: No Hx Family Dementia: No Hx Family AIDS: No Hx Family HIV: No Hx Family COPD: No Hx Family Hepatitis: No Hx Family Psychiatric Problems: No Hx Family Tuberculosis: No Father History Unknown: Yes Ethnicity: Unknown Living Status: Still Living Hx Family Cancer: No Hx Family Coronary Artery Disease: No Hx Family Congestive Heart Failure: No Hx Family Hypertension: No Hx Family Stroke: No Hx Family Diabetes: No Hx Family Seizures: No Hx Family Dementia: No Hx Family AIDS: No Hx Family HIV: No Hx Family COPD: No Hx Family Hepatitis: No Hx Family Psychiatric Problems: No Hx Family Tuberculosis: No ED Physical Exam - Physical Examination General/Constitutional: Awake, Alert Head: Atraumatic Eyes: PERRL, EOMI Other Skin comments:: Left lower leg erythema and edema Neck: No nuchal rigidity Respiratory: Clear to Auscultation, No Wheeze/Rhonchi/Rales Cardio Vascular: RRR, No murmur, gallop, rubs, NL S1 S2 GI: No tenderness/rebounding/guarding Other Extremities comments:: Left lower extremity edema, erythma, tenderness. There is 3 very small skin abrasions and medial lower tibia. Neuro/Psych: No focal deficits ED Labs/Radiology/EKG Results - Radiology Results Results: CXR: no consolidation Renal ultrasound: no hydronephrosis ED Assessment - Assessment General Assessment: Left lower extremity edema Cellulitis Leukocytosis Critical Care Time: 45 min Excludes all billable procedures: Yes This condition life threatening/high prob of deterioration: No Assessment/Comments:: CBC, CMP, UA CXR LLE venous u/s Renal u/s Vancomycin NS 1L IV bolus Admit to inpatient for further management ED Septic Shock - . Is Septic Shock (SBP<90, OR Lactate>4 mmol\L) present?: No - <6hrs of presentation: Vital Signs: Vital Signs - 8 hr 08/09/17 09:17 Temp 97.6 F HR 88 RR 15 BP 119/72 O2 Sat % 98 ED Reassessment (Disposition) - Reassessment Reassessment Condition:: Unchanged - Patient Disposition Discharge/Transfer:: Acute Care w/in this hosp ED Discharge Plan - Patient Disposition Admit/Discharge/Transfer: Acute Care w/in this hosp Condition at Disposition: Unchanged
[2017-08-09 09:44] LABS: HEMOGLOBIN 10.8 gm/dL (12-16); MEAN CELL VOLUME 86.8 fl (80-99); MEAN CORPUSCULAR HGB CONC 34.5 pg (28.0-36.0); MEAN PLATELET VOLUME 8.1 fl; RED BLOOD COUNT 3.61 Mil/cmm (4.30-5.70); RED CELL DISTRIBUTION WIDTH 14.3 % (11.5-20.0)
[2017-08-09 09:47] LABS: WHITE BLOOD COUNT 14.6 Th/cmm (4.8-10.8)
[2017-08-09 09:53] LABS: INR 1.11 (0.5-1.4); PROTHROMBIN TIME (TEST) 11.6 SECONDS (9.5-11.5)
[2017-08-09 09:58] LABS: ALB/GLOB RATIO 1.4 (1.0-1.8); ALKALINE PHOSPHATASE 31 U/L (34-104); ANION GAP 8.9 (7.0-16.0); BILIRUBIN,TOTAL 0.2 mg/dL (0.3-1.0); BUN - UREA NITROGEN 21 mg/dL (7-25); BUN/CREATININE RATIO 19.1; CALCIUM SERUM 9.4 mg/dL (8.6-10.3); CARBON DIOXIDE 25.4 mEq/L (21.0-31.0); CHLORIDE 105 mEq/L (98-107); CREATININE - SERUM 1.1 mg/dL (0.7-1.3); GLUCOSE 85 mg/dL (70-105); POTASSIUM SERUM 4.3 mEq/L (3.5-5.1); SGOT 12 U/L (13-39); SGPT/ALT 13 U/L (7-52); SODIUM SERUM 135 mEq/L (136-145)
[2017-08-09 10:02] LABS: HEMATOCRIT 31.3 % (41.0-60); PLATELET COUNT 415 Th/cmm (150-400)
[2017-08-09 10:03] LABS: BAND NEUTROPHILE 1 % (0-10); EOSINOPHIL 4 % (0-5); NEUTROPHILS 65 % (40-80); TOTAL CELLS COUNTED 100
[2017-08-09] MEDS ORDERED: Sodium Chloride 0.9% 1,000 ML IV ONE (10:10)
[2017-08-09 11:06] LABS: URINE BILIRUBIN NEGATIVE (NEGATIVE); URINE BLOOD NEGATIVE (NEGATIVE); URINE GLUCOSE (UA) NEGATIVE (NEGATIVE); URINE KETONE NEGATIVE (NEGATIVE); URINE PROTEIN NEGATIVE (NEGATIVE); URINE UROBILINOGEN 0.2 E.U./dL (0.2 - 1.0)
[2017-08-09 11:07] LABS: URINE COLOR YELLOW
[2017-08-09 11:10] LABS: URINE BACTERIA OCCASIONAL /hpf (NONE SEEN); URINE EPITHELIAL CELLS OCCASIONAL /lpf (FEW); URINE RBC 0-2 /hpf (0-5); URINE WBC 0-2 /hpf (0-5)
[2017-08-09 11:11] LABS: URINE AMORPHOUS SEDIMENT MODERATE PHOSPHATES (NONE SEEN)
--- NOTE | 2017-08-09 15:40 | Consultation ---
Consult Note - Consult Note Service Date: 08/09/17 Referring Physician: Winifred Rogers Consult Note: PHYSICIAN Consultation Note: Date of Admission: 08/09/17 Purpose of Consultation: cellulitis of the left leg. Chief Complaint: Patient BENJAMIN COOK was admitted to [facility] with LEFT LOWER EXTREMITY, CELLULITIS. History of Present Illness:56 year old male admitted for swelling of the left leg for 5 days.and found to have leukpcytosis. there is no ulcer. there is no redness. He c/o cough denies any fever or shortness of breath. Past Medical History: Hypertension, depression, hyperlipidemia, anemia, GERD, hypothyroidism. Allergies Allergy/AdvReac Type Severity Reaction Status Date / Time No Known Allergies Allergy Verified 07/30/17 00:20 Vital Signs Temp 97.2 F 08/09/17 12:52 Pulse 94 08/09/17 12:52 Resp 17 08/09/17 12:52 BP 129/82 08/09/17 12:52 Pulse Ox 98 08/09/17 12:52 Intake & Output 08/08/17 08/09/17 08/09/17 18:59 06:59 18:59 Weight (lbs) 84.368 kg Other: Stool Characteristics Hard Laboratory Results - last 24 hr 08/09/17 13:04 POC Glucose 127 H Home Medication Medication Instructions Recorded Type Acetaminophen [Tylenol] 650 mg PO Q4HR PRN #0 tab 11/08/16 Rx Aspirin EC [Ecotrin] 81 mg PO DAILY #0 ect 11/08/[address] [Chemo MTZ] 1,000 mg PO Q12HR #0 tcp 11/08/16 Rx Famotidine [Pepcid] 20 mg PO DAILY #0 tab 11/08/16 Rx Fenofibrate, Micronized [Tricor] 134 mg PO DAILY #0 cap 11/08/16 Rx Tamsulosin [Flomax] 0.4 mg PO HS #0 cap 11/08/16 Rx cloZAPine [Clozaril] 300 mg PO HS #0 tab 11/08/16 Rx traZODone HCl [Desyrel*] 25 mg PO HS #0 tab 11/08/16 Rx Benztropine [Cogentin*] 1 mg PO BID 07/30/17 History Clonazepam [Klonopin] 0.5 mg PO BID 07/30/17 History Levothyroxine [Synthroid] 0.15 mg PO QDAC 07/30/17 History Lisinopril [Zestril*] 5 mg PO DAILY 07/30/17 History QUEtiapine Fumarate [SEROquel] 300 mg PO HS 07/30/17 History Current Medications Generic Name Dose Route Start Last Admin Trade Name Freq PRN Reason Stop Dose Admin Vancomycin HCl 1.25 gm/ Sodium 250 mls @ 165 mls/hr 08/09/17 21:00 Chloride IV 10/08/17 20:59 Q12H HEIDI Miscellaneous 1 ea 08/09/17 14:12 Vancomycin Iv Per Pharmacy [facility] 10/08/17 14:11 PRN PRN VANCOMYCIN PER RX Review of Systems: A 12 point ROS was reviewed with the pertinent positive and negatives noted in the HPI. Social History Smoking Status Never smoker Drug Use No Alcohol Use No Physical Exam: General: Comfortable, not in any acute distress. HEENT: Admit: Normocytic, atraumatic. Oral cavity: Moist, pink tongue. Eyes: No pallor or icterus. Pupil PERRLA EOMI. Neck: Supple, no JVD. no carotid bruit. No use of accessory neck muscles. Cardio: S1 and S2 within normal limits regular rhythm no murmur no gallop. Respiratory: CTAP. Abdominal: Soft, nontender, nondistended bowel sounds present. Genital/Urinary: Deferred. Extremities: No cyanosis, no clubbing, no edema. Patient has swelling of the left leg. Neurological: Alert, awake, oriented 3. Assessment: 1. Leukocytosis. 2. Cellulitis of left leg. Duplex ultrasound was negative for DVT. 3. BPH. 4. Hypothyroidism. 5. Hypertension. 6. History of GERD. 7. Hyperlipidemia. 8. Major depression. Stable 9. Bronchitis. Plan: Continue same treatment. Cough syrup. Signed, Chato Elam M.D. [id number]
[2017-08-09] MEDS ORDERED: Guaifenesin DM 10 ML UDC PO PRN (15:43)
--- NOTE | 2017-08-09 18:53 | History & Physical ---
ADMIT DATE: 08/09/2017 HISTORY OF PRESENT ILLNESS: The patient was admitted for cellulitis of the left leg. The patient is very well known to me. The patient lives at [facility]. The patient is known to have history of psychosis. The patient has multiple medications. The patient has a history of a platelet problems and a history of hypothyroidism, hyperlipidemia, history of depression, history of GERD, and anemia. He came because of his left leg swelling for the last 5 days and also was found to have leukocytosis and was admitted for SIRS, possible sepsis, cellulitis of left lower leg. PAST MEDICAL HISTORY: As enumerated above. PAST SURGICAL HISTORY: As enumerated above. FAMILY HISTORY: Unremarkable. The patient lives at [facility], which is a [place] [facility]. PHYSICAL EXAMINATION: HEAD: Normal. ENT: Normal. NECK: Supple, nontender. LUNGS: Clear. CARDIOVASCULAR SYSTEM: S1, S2 heard. ABDOMEN: Soft. EXTREMITIES: Left leg swelling was noted, erythema noted. DIAGNOSES: Cellulitis of the left leg, leukocytosis, systemic inflammatory response syndrome, history of benign prostatic hypertrophy, history of hypothyroidism, history of hypertension, history of gastroesophageal reflux disease, history of major depression and history of psychosis, history of hyperlipidemia, bronchitis. PLAN: The patient will be admitted. I will give him antibiotics and I will also have Psychiatry see the patient as well as Dr. Chato Elam, ID consult and I will follow the patient. JOB# [id number]
[2017-08-10 06:34] LABS: % BASOPHILS 0.2 % (0.0-2.0); % EOSINOPHILS 5.5 % (0.0-5.0); % LYMPHOCYTES 29.1 % (20.0-50.0); % NEUTROPHILS 54.2 % (40.0-80.0); HEMATOCRIT 32.4 % (41.0-60); HEMOGLOBIN 10.8 gm/dL (12-16); MEAN CELL VOLUME 87.5 fl (80-99); MEAN CORPUSCULAR HEMOGLOBIN 29.3 pg (26.0-30.0); MEAN CORPUSCULAR HGB CONC 33.5 pg (28.0-36.0); MEAN PLATELET VOLUME 8.2 fl; NEUTROPHILE ABSOLUTE 5.2 Th/cmm (1.8-8.0); PLATELET COUNT 403 Th/cmm (150-400); RED CELL DISTRIBUTION WIDTH 14.7 % (11.5-20.0)
[2017-08-10 06:44] LABS: WHITE BLOOD COUNT 9.6 Th/cmm (4.8-10.8)
[2017-08-10 06:46] LABS: ALB/GLOB RATIO 1.4 (1.0-1.8); ALKALINE PHOSPHATASE 35 U/L (34-104); ANION GAP 8.4 (7.0-16.0); BILIRUBIN,TOTAL 0.3 mg/dL (0.3-1.0); BUN - UREA NITROGEN 13 mg/dL (7-25); CALCIUM SERUM 9.3 mg/dL (8.6-10.3); CARBON DIOXIDE 25.4 mEq/L (21.0-31.0); CHLORIDE 110 mEq/L (98-107); GLUCOSE 92 mg/dL (70-105); POTASSIUM SERUM 4.8 mEq/L (3.5-5.1); SGOT 11 U/L (13-39); SGPT/ALT 10 U/L (7-52); SODIUM SERUM 139 mEq/L (136-145)
[2017-08-10] MEDS: Levothyroxine 0.15 Mg Tab PO SCH (07:38)
[2017-08-10] MEDS: Fenofibrate, Micronized 134 mg Cap PO SCH (08:33)
[2017-08-10] MEDS: Benztropine 1 MG TAB PO SCH ×2 (08:33→16:21)
--- NOTE | 2017-08-10 09:15 | Diagnostic Imaging Report ---
Left lower extremity DVT study HISTORY: Left lower extremity edema COMPARISON: None Technique: Longitudinal and transverse sonographic images of the left lower extremity veins were obtained with doppler analysis. FINDINGS: There is normal compressibility, augmentation and phasicity of the left common femoral, superficial femoral, popliteal, and posterior tibial veins. No thrombus is visualized. IMPRESSION: No evidence of thrombus within the left lower extremity veins.
--- NOTE | 2017-08-10 09:18 | Diagnostic Imaging Report ---
Renal ultrasound HISTORY: Back pain and edema COMPARISON: Previous abdominal ultrasound on 01/28/[address] abdomen and pelvis on 01/26/2017 Technique: Sonography of the kidneys and urinary bladder was performed in multiple planes. FINDINGS: The right kidney measures 10.7 x 5.3 cm. No evidence of focal lesions or hydronephrosis. The left kidney measures 11.7 x 5.6 cm. The left renal margin on well-defined, however, no evidence of focal lesions or hydronephrosis. No evidence of elevated postvoid residual bladder volumes. There is a nonspecific 6 mm echogenic focus along the left side of the urinary bladder. No evidence of urinary bladder wall thickening. The prostate gland is mildly prominent measuring 4.3 x 2.6 x 2.1 cm. IMPRESSION: No evidence of hydronephrosis. Mildly prominent prostate gland, please correlate with clinical findings. 6 mm echogenic focus incidentally noted along the left side of the urinary bladder which may represent a nonspecific calcification. A stone within the distal left ureter would be considered less likely. If necessary, CT follow-up may be obtained.
--- NOTE | 2017-08-10 09:21 | Diagnostic Imaging Report ---
CHEST X-RAY: AP view INDICATION: Cough and leukocytosis COMPARISON: Chest x-ray 07/30/[address] abdomen and pelvis on 01/26/2017 FINDINGS: There is no focal consolidation or pleural effusions The heart is normal in size. The osseous structures demonstrate no acute abnormalities. An old left seventh rib fracture is noted. There is suggestion of a small retrocardiac hiatal hernia when compared to previous examination. IMPRESSION: No focal airspace consolidation identified. There is suggestion of a small retrocardiac hiatal hernia.
--- NOTE | 2017-08-10 21:59 | Progress Notes ---
DATE: 08/10/2017 DATE OF SERVICE: 08/10/2017 SUBJECTIVE: The patient was seen in his room, lying in the bed. The patient is still complaining of left leg pain that appears to be swollen, otherwise the patient appears to be in no acute distress. OBJECTIVE: VITAL SIGNS: Temperature 97.4, heart rate 91, blood pressure is 100/49, respirations of 17, 98% on room air. HEENT: Head is atraumatic and normocephalic. Eyes: Bilateral conjunctivae are clear. Bilateral pupils are equally round and reactive. NECK: Supple. No JVD. CARDIOVASCULAR: S1 and S2, without murmur. PULMONARY: Clear to auscultation. GASTROINTESTINAL: Soft and nontender without guarding. Positive bowel sounds. MUSCULOSKELETAL: No clubbing, no cyanosis noted. Left leg swollen and appears to be ready. ASSESSMENT: 1. Left leg cellulitis. 2. Hypothyroidism. 3. Hypertension. 4. Benign prostatic hypertrophy. 5. Hyperlipidemia. 6. Gastroesophageal reflux disease. 7. Major depression disorder. 8. History of psychosis. PLAN: We will keep the patient inpatient in Med/Surg Unit. We will follow up with ID doctor for antibiotic management. Treatment plans were discussed with the patient's nurse. Treatment plans were discussed with Dr. Rogers. JOB# [id number]
--- NOTE | 2017-08-11 03:40 | Consultation ---
DATE OF CONSULTATION: 08/10/2017 PSYCHIATRIC CONSULTATION The patient was seen, chart reviewed, discussed with staff. HISTORY OF PRESENT ILLNESS: The patient is a 56-year-old male with chronic history of schizoaffective disorder, known to myself from prior treatment, transferred from his care home facility. Now, he is on medical floor, being treated for cellulitis, was complaining about trouble sleeping at nighttime. He said he woke up around 3:30 this morning. The patient said he has been taking his medications and he feels anxious at times, but he is not suicidal. He has been cooperative with staff. PAST PSYCHIATRIC HISTORY: Multiple psychiatric hospitalizations, chronic history of mental illness. PAST MEDICAL HISTORY: As per H and P, as per Dr. Rogers, the patient is currently admitted for cellulitis. PSYCHOSOCIAL HISTORY: The patient resides at [facility] and requires complete care. MENTAL STATUS EXAMINATION: The patient is cooperative, appears to be older than his stated age. Speech is rapid at times. Affect anxious. Thought process, somewhat fragmented. The patient is slightly guarded. The patient is oriented to time, place and person. No suicidal thoughts. The patient denied having any hallucinations at this time, but at times hears voices, mostly at night. ASSESSMENT: Schizoaffective disorder. PLAN: We will continue Clozaril, Klonopin. Continue Clozaril 300 mg p.o. at bedtime. The patient is also on Klonopin 0.5 mg p.o. b.i.d. Will increase trazodone to 50 mg p.o. at bedtime to help patient with sleep. The patient is also receiving Depakote and Cogentin. Will follow closely while in the hospital. Thank you for the consultation. JOB# [id number]
[2017-08-11] MEDS: Fenofibrate, Micronized 134 mg Cap PO SCH (08:48)
[2017-08-11] MEDS: Benztropine 1 MG TAB PO SCH ×2 (08:48→16:30)
--- NOTE | 2017-08-11 10:57 | General Progress Note ---
Subjective - Review of Systems Events since last encounter: left leg pain + swelling no fever , denies sob Objective - Results Result Diagrams: 08/10/17 05:49 08/10/17 05:49 Recent Labs: Laboratory Last Values WBC 9.6 Th/cmm (4.8-10.8) D 08/10/17 05:49 RBC 3.70 Mil/cmm (4.30-5.70) L 08/10/17 05:49 Hgb 10.8 gm/dL (12-16) L 08/10/17 05:49 Hct 32.4 % (41.0-60) L 08/10/17 05:49 MCV 87.5 fl (80-99) 08/10/17 05:49 MCH 29.3 pg (26.0-30.0) 08/10/17 05:49 MCHC Differential 33.5 pg (28.0-36.0) 08/10/17 05:49 RDW 14.7 % (11.5-20.0) 08/10/17 05:49 Plt Count 403 Th/cmm (150-400) H 08/10/17 05:49 MPV 8.2 fl 08/10/17 05:49 Neutrophils % 54.2 % (40.0-80.0) 08/10/17 05:49 Band Neutrophils % 1 % (0-10) 08/09/17 09:30 Lymphocytes % 29.1 % (20.0-50.0) 08/10/17 05:49 Monocytes % 11.0 % (2.0-10.0) H 08/10/17 05:49 Eosinophils % 5.5 % (0.0-5.0) H 08/10/17 05:49 Basophils % 0.2 % (0.0-2.0) 08/10/17 05:49 Neutrophils (Manual) 65 % (40-80) 08/09/17 09:30 Lymphocytes 22 % (20-50) 08/09/17 09:30 Monocytes 8 % (2-10) 08/09/17 09:30 Eosinophils 4 % (0-5) 08/09/17 09:30 PT 11.6 SECONDS (9.5-11.5) H 08/09/17 09:30 INR 1.11 (0.5-1.4) 08/09/17 09:30 PTT (Actin FS) 25.4 SECONDS (26.0-38.0) L 08/09/17 09:30 Sodium 139 mEq/L (136-145) 08/10/17 05:49 Potassium 4.8 mEq/L (3.5-5.1) 08/10/17 05:49 Chloride 110 mEq/L (98-107) H 08/10/17 05:49 Carbon Dioxide 25.4 mEq/L (21.0-31.0) 08/10/17 05:49 Anion Gap 8.4 (7.0-16.0) 08/10/17 05:49 BUN 13 mg/dL (7-25) 08/10/17 05:49 Creatinine 1.0 mg/dL (0.7-1.3) 08/10/17 05:49 Est GFR ( Amer) > 60.0 ml/min (>90) 08/10/17 05:49 Est GFR (Non-Af Amer) > 60.0 ml/min 08/10/17 05:49 BUN/Creatinine Ratio 13.0 08/10/17 05:49 Glucose 92 mg/dL (70-105) 08/10/17 05:49 POC Glucose 127 MG/DL (70 - 105) H 08/09/17 13:04 Hemoglobin A1c % 5.6 % (4.0-6.0) 08/09/17 09:30 Whole Bld Lactic Acid 1.21 mmol/L (0.60-1.99) 08/09/17 10:08 Calcium 9.3 mg/dL (8.6-10.3) 08/10/17 05:49 Total Bilirubin 0.3 mg/dL (0.3-1.0) 08/10/17 05:49 AST 11 U/L (13-39) L 08/10/17 05:49 ALT 10 U/L (7-52) 08/10/17 05:49 Alkaline Phosphatase 35 U/L (34-104) 08/10/17 05:49 Troponin I < 0.01 ng/mL (0.01-0.05) L 08/09/17 09:30 B-Natriuretic Peptide 22.2 pg/mL (5.0-100.0) 08/09/17 09:30 Total Protein 5.8 gm/dL (6.0-8.3) L 08/10/17 05:49 Albumin 3.4 gm/dL (4.2-5.5) L 08/10/17 05:49 Globulin 2.4 gm/dL 08/10/17 05:49 Albumin/Globulin Ratio 1.4 (1.0-1.8) 08/10/17 05:49 Prostate Specific Ag 0.9 ng/mL (0.0-4.0) 08/09/17 09:30 Urine Source RANDOM 08/09/17 10:03 Urine Color YELLOW 08/09/17 10:03 Urine Clarity SLIGHT CLOUDY (CLEAR) 08/09/17 10:03 Urine pH 8.0 (4.6 - 8.0) 08/09/17 10:03 Ur Specific [place] 1.015 (1.005-1.030) 08/09/17 10:03 Urine Protein NEGATIVE mg/dL (NEGATIVE) 08/09/17 10:03 Urine Glucose (UA) NEGATIVE mg/dL (NEGATIVE) 08/09/17 10:03 Urine Ketones NEGATIVE mg/dL (NEGATIVE) 08/09/17 10:03 Urine Blood NEGATIVE (NEGATIVE) 08/09/17 10:03 Urine Nitrate NEGATIVE (NEGATIVE) 08/09/17 10:03 Urine Bilirubin NEGATIVE (NEGATIVE) 08/09/17 10:03 Urine Urobilinogen 0.2 E.U./dL (0.2 - 1.0) 08/09/17 10:03 Ur Leukocyte Esterase NEGATIVE (NEGATIVE) 08/09/17 10:03 Urine RBC 0-2 /hpf (0-5) H 08/09/17 10:03 Urine WBC 0-2 /hpf (0-5) 08/09/17 10:03 Ur Epithelial Cells OCCASIONAL /lpf (FEW) 08/09/17 10:03 Amorphous Sediment MODERATE PHOSPHATES (NONE SEEN) 08/09/17 10:03 Urine Bacteria OCCASIONAL /hpf (NONE SEEN) 08/09/17 10:03 Vancomycin Trough 15.2 ug/mL (10-20) 08/11/17 08:05 - Physical Exam Vitals and I&O: Vital Signs Temp 98 F 08/11/17 04:00 Pulse 64 08/11/17 08:48 Resp 18 08/11/17 08:00 BP 110/71 08/11/17 08:48 Pulse Ox 99 08/11/17 04:00 Intake & Output 08/10/17 08/11/17 08/11/17 18:59 06:59 18:59 Intake Total 1050 950 Output Total 1000 1000 Balance 50 -50 Weight (lbs) 84.368 kg 84.368 kg Intake: Intake, IV Amount 250 250 Vancomycin HCl 1.25 gm In 250 250 Sodium Chloride 0.9% 250 ml @ 165 mls/hr IV Q12H [facility] Rx#:[id number] Oral 800 700 Output: Urine 1000 1000 Other: # Voids 3 # Bowel Movements 1 0 Active Medications: Current Medications Acetaminophen (Tylenol) 650 mg PO Q4HR PRN PRN Reason: Fever >100.5 Stop: 10/08/17 18:26 Last Admin: 08/11/17 05:19 Dose: 650 mg Aspirin (Ecotrin) 81 mg PO DAILY [facility] Stop: 10/09/17 08:59 Last Admin: 08/11/17 08:49 Dose: 81 mg Benztropine Mesylate (Cogentin) 1 mg PO BID [facility] Stop: 10/09/17 08:59 Last Admin: 08/11/17 08:48 Dose: 1 mg Clonazepam (Klonopin) 0.5 mg PO BID [facility]IDI PRN Reason: Protocol Stop: 10/09/17 08:59 Last Admin: 08/11/17 08:48 Dose: 0.5 mg Clozapine (Clozaril) 300 mg PO HS [facility]I PRN Reason: Protocol Stop: 10/08/17 20:59 Last Admin: 08/10/17 20:51 Dose: Not Given Divalproex Sodium (Depakote Dr) 1,000 mg PO Q12HR [facility]I PRN Reason: Protocol Stop: 10/08/17 20:59 Last Admin: 08/11/17 08:48 Dose: 1,000 mg Famotidine (Pepcid) 20 mg PO DAILY [facility] Stop: 10/09/17 08:59 Last Admin: 08/11/17 09:06 Dose: 20 mg Fenofibrate (Tricor) 134 mg PO DAILY [facility] Stop: 10/09/17 08:59 Last Admin: 08/11/17 08:48 Dose: 134 mg Guaifenesin/Dextromethorphan (Robitussin Dm) 10 ml PO Q6HR PRN PRN Reason: Cough Stop: 10/08/17 15:42 Vancomycin HCl 1.25 gm/ Sodium (Chloride) 250 mls @ 165 mls/hr IV Q12H [facility] Stop: 10/08/17 20:59 Last Admin: 08/11/17 09:00 Dose: 165 mls/hr Levothyroxine Sodium (Synthroid) 0.15 mg PO QDAC [facility] Stop: 10/09/17 07:29 Last Admin: 08/10/17 07:38 Dose: Not Given Lisinopril (Zestril) 5 mg PO DAILY [facility] Stop: 10/09/17 08:59 Last Admin: 08/11/17 08:48 Dose: 5 mg Miscellaneous (Vancomycin Iv Per Pharmacy) 1 ea [facility] PRN PRN PRN Reason: VANCOMYCIN PER RX Stop: 10/08/17 14:11 Quetiapine Fumarate (Seroquel) 300 mg PO HS [facility]I PRN Reason: Protocol Stop: 10/08/17 20:59 Last Admin: 08/10/17 20:50 Dose: 300 mg Tamsulosin HCl (Flomax) 0.4 mg PO HS [facility] Stop: 10/08/17 20:59 Last Admin: 08/10/17 20:50 Dose: 0.4 mg Temazepam (Restoril) 15 mg PO HS PRN; Protocol PRN Reason: Insomnia Stop: 10/08/17 20:38 Last Admin: 08/09/17 21:43 Dose: 15 mg Trazodone HCl (Desyrel) 50 mg PO HS [facility]I PRN Reason: Protocol Stop: 10/09/17 12:20 Last Admin: 08/10/17 20:50 Dose: 50 mg General: No acute distress HEENT: Atraumatic Neck: Supple, Thyromegaly Cardiovascular: Regular rate - Procedures Procedures: Procedures Procedure Code Date EGD BIOPSY SINGLE/MULTIPLE 79672 01/25/17 EXCISION OF DUODENUM, ENDO, DIAGN [id number] 01/25/17 EXCISION OF ESOPHAGOGASTRIC JUNCTION, ENDO, DIAGN [id number] 01/25/17 EXCISION OF STOMACH, ENDO, DIAGN [id number] 01/25/17 OTHER GROUP THERAPY 94.44 04/29/15 Assessment/Plan - Problem List Patient Problems: All Active Problems Delusional disorder (Acute) F22 Hyponatremia (Acute) E87.1 Pain (Acute) R52 - Plan Plan: cpm
[2017-08-11] MEDS ORDERED: Probiotic Screen MC PRN (13:15)
[2017-08-11] MEDS: Levothyroxine 0.15 Mg Tab PO SCH (13:41)
--- NOTE | 2017-08-11 17:05 | Infectious Disease Prog Note ---
Infectious Disease Subjective - Review of Systems Service Date: 08/11/17 Subjective: No change, Infectious Disease Objective - Results Result Diagrams: 08/10/17 05:49 08/10/17 05:49 Recent Labs: Laboratory Last Values WBC 9.6 Th/cmm (4.8-10.8) D 08/10/17 05:49 RBC 3.70 Mil/cmm (4.30-5.70) L 08/10/17 05:49 Hgb 10.8 gm/dL (12-16) L 08/10/17 05:49 Hct 32.4 % (41.0-60) L 08/10/17 05:49 MCV 87.5 fl (80-99) 08/10/17 05:49 MCH 29.3 pg (26.0-30.0) 08/10/17 05:49 MCHC Differential 33.5 pg (28.0-36.0) 08/10/17 05:49 RDW 14.7 % (11.5-20.0) 08/10/17 05:49 Plt Count 403 Th/cmm (150-400) H 08/10/17 05:49 MPV 8.2 fl 08/10/17 05:49 Neutrophils % 54.2 % (40.0-80.0) 08/10/17 05:49 Band Neutrophils % 1 % (0-10) 08/09/17 09:30 Lymphocytes % 29.1 % (20.0-50.0) 08/10/17 05:49 Monocytes % 11.0 % (2.0-10.0) H 08/10/17 05:49 Eosinophils % 5.5 % (0.0-5.0) H 08/10/17 05:49 Basophils % 0.2 % (0.0-2.0) 08/10/17 05:49 Neutrophils (Manual) 65 % (40-80) 08/09/17 09:30 Lymphocytes 22 % (20-50) 08/09/17 09:30 Monocytes 8 % (2-10) 08/09/17 09:30 Eosinophils 4 % (0-5) 08/09/17 09:30 PT 11.6 SECONDS (9.5-11.5) H 08/09/17 09:30 INR 1.11 (0.5-1.4) 08/09/17 09:30 PTT (Actin FS) 25.4 SECONDS (26.0-38.0) L 08/09/17 09:30 Sodium 139 mEq/L (136-145) 08/10/17 05:49 Potassium 4.8 mEq/L (3.5-5.1) 08/10/17 05:49 Chloride 110 mEq/L (98-107) H 08/10/17 05:49 Carbon Dioxide 25.4 mEq/L (21.0-31.0) 08/10/17 05:49 Anion Gap 8.4 (7.0-16.0) 08/10/17 05:49 BUN 13 mg/dL (7-25) 08/10/17 05:49 Creatinine 1.0 mg/dL (0.7-1.3) 08/10/17 05:49 Est GFR ( Amer) > 60.0 ml/min (>90) 08/10/17 05:49 Est GFR (Non-Af Amer) > 60.0 ml/min 08/10/17 05:49 BUN/Creatinine Ratio 13.0 08/10/17 05:49 Glucose 92 mg/dL (70-105) 08/10/17 05:49 POC Glucose 127 MG/DL (70 - 105) H 08/09/17 13:04 Hemoglobin A1c % 5.6 % (4.0-6.0) 08/09/17 09:30 Whole Bld Lactic Acid 1.21 mmol/L (0.60-1.99) 08/09/17 10:08 Calcium 9.3 mg/dL (8.6-10.3) 08/10/17 05:49 Total Bilirubin 0.3 mg/dL (0.3-1.0) 08/10/17 05:49 AST 11 U/L (13-39) L 08/10/17 05:49 ALT 10 U/L (7-52) 08/10/17 05:49 Alkaline Phosphatase 35 U/L (34-104) 08/10/17 05:49 Troponin I < 0.01 ng/mL (0.01-0.05) L 08/09/17 09:30 B-Natriuretic Peptide 22.2 pg/mL (5.0-100.0) 08/09/17 09:30 Total Protein 5.8 gm/dL (6.0-8.3) L 08/10/17 05:49 Albumin 3.4 gm/dL (4.2-5.5) L 08/10/17 05:49 Globulin 2.4 gm/dL 08/10/17 05:49 Albumin/Globulin Ratio 1.4 (1.0-1.8) 08/10/17 05:49 Prostate Specific Ag 0.9 ng/mL (0.0-4.0) 08/09/17 09:30 Urine Source RANDOM 08/09/17 10:03 Urine Color YELLOW 08/09/17 10:03 Urine Clarity SLIGHT CLOUDY (CLEAR) 08/09/17 10:03 Urine pH 8.0 (4.6 - 8.0) 08/09/17 10:03 Ur Specific [place] 1.015 (1.005-1.030) 08/09/17 10:03 Urine Protein NEGATIVE mg/dL (NEGATIVE) 08/09/17 10:03 Urine Glucose (UA) NEGATIVE mg/dL (NEGATIVE) 08/09/17 10:03 Urine Ketones NEGATIVE mg/dL (NEGATIVE) 08/09/17 10:03 Urine Blood NEGATIVE (NEGATIVE) 08/09/17 10:03 Urine Nitrate NEGATIVE (NEGATIVE) 08/09/17 10:03 Urine Bilirubin NEGATIVE (NEGATIVE) 08/09/17 10:03 Urine Urobilinogen 0.2 E.U./dL (0.2 - 1.0) 08/09/17 10:03 Ur Leukocyte Esterase NEGATIVE (NEGATIVE) 08/09/17 10:03 Urine RBC 0-2 /hpf (0-5) H 08/09/17 10:03 Urine WBC 0-2 /hpf (0-5) 08/09/17 10:03 Ur Epithelial Cells OCCASIONAL /lpf (FEW) 08/09/17 10:03 Amorphous Sediment MODERATE PHOSPHATES (NONE SEEN) 08/09/17 10:03 Urine Bacteria OCCASIONAL /hpf (NONE SEEN) 08/09/17 10:03 Vancomycin Trough 15.2 ug/mL (10-20) 08/11/17 08:05 - Physical Exam Vitals and I&O: Vital Signs Temp 98.3 F 08/11/17 16:00 Pulse 71 08/11/17 16:00 Resp 19 08/11/17 16:00 BP 103/54 11/26/17 16:00 Pulse Ox 99 08/11/17 16:00 Intake & Output 08/10/17 08/11/17 08/11/17 18:59 06:59 18:59 Intake Total 1050 950 250 Output Total 1000 1000 Balance 50 -50 250 Weight (lbs) 84.368 kg 84.368 kg Intake: Intake, IV Amount 250 250 250 Vancomycin HCl 1.25 gm In 250 250 250 Sodium Chloride 0.9% 250 ml @ 165 mls/hr IV Q12H [facility] Rx#:[id number] Oral 800 700 Output: Urine 1000 1000 Other: # Voids 3 # Bowel Movements 1 0 Active Medications: Current Medications Acetaminophen (Tylenol) 650 mg PO Q4HR PRN PRN Reason: Fever >100.5 Stop: 10/08/17 18:26 Last Admin: 08/11/17 05:19 Dose: 650 mg Aspirin (Ecotrin) 81 mg PO DAILY [facility] Stop: 10/09/17 08:59 Last Admin: 08/11/17 08:49 Dose: 81 mg Benztropine Mesylate (Cogentin) 1 mg PO BID [facility] Stop: 10/09/17 08:59 Last Admin: 08/11/17 16:30 Dose: 1 mg Clonazepam (Klonopin) 0.5 mg PO BID [facility] PRN Reason: Protocol Stop: 10/09/17 08:59 Last Admin: 08/11/17 16:30 Dose: 0.5 mg Clozapine (Clozaril) 300 mg PO HS [facility] PRN Reason: Protocol Stop: 10/08/17 20:59 Last Admin: 08/10/17 20:51 Dose: Not Given Divalproex Sodium (Depakote Dr) 1,000 mg PO Q12HR [facility] PRN Reason: Protocol Stop: 10/08/17 20:59 Last Admin: 08/11/17 08:48 Dose: 1,000 mg Famotidine (Pepcid) 20 mg PO DAILY [facility] Stop: 10/09/17 08:59 Last Admin: 08/11/17 09:06 Dose: 20 mg Fenofibrate (Tricor) 134 mg PO DAILY [facility] Stop: 10/09/17 08:59 Last Admin: 08/11/17 08:48 Dose: 134 mg Guaifenesin/Dextromethorphan (Robitussin Dm) 10 ml PO Q6HR PRN PRN Reason: Cough Stop: 10/08/17 15:42 Vancomycin HCl 1.25 gm/ Sodium (Chloride) 250 mls @ 165 mls/hr IV Q12H [facility] Stop: 10/08/17 20:59 Last Infusion: 08/11/17 13:41 Dose: Infused Lactobacillus Rhamnosus (Culturelle) 1 each PO DAILY [facility] Stop: 10/11/17 08:59 Levothyroxine Sodium (Synthroid) 1.5 mg PO DAILY [facility] Stop: 10/11/17 08:59 Lisinopril (Zestril) 5 mg PO DAILY [facility] Stop: 10/09/17 08:59 Last Admin: 08/11/17 08:48 Dose: 5 mg Miscellaneous (Vancomycin Iv Per Pharmacy) 1 ea PRN PRN PRN Reason: VANCOMYCIN PER RX Stop: 10/08/17 14:11 Miscellaneous (Probiotic Screen) 1 [facility] PRN PRN PRN Reason: PROTOCOL Stop: 10/10/17 13:14 Quetiapine Fumarate (Seroquel) 300 mg PO HS [facility] PRN Reason: Protocol Stop: 10/08/17 20:59 Last Admin: 08/10/17 20:50 Dose: 300 mg Tamsulosin HCl (Flomax) 0.4 mg PO HS [facility] Stop: 10/08/17 20:59 Last Admin: 08/10/17 20:50 Dose: 0.4 mg Temazepam (Restoril) 15 mg PO HS PRN; Protocol PRN Reason: Insomnia Stop: 10/08/17 20:38 Last Admin: 08/09/17 21:43 Dose: 15 mg Trazodone HCl (Desyrel) 50 mg PO HS [facility] PRN Reason: Protocol Stop: 10/09/17 12:20 Last Admin: 08/10/17 20:50 Dose: 50 mg General: no acute distress, well developed, well nourished HEENT: atraumatic, normocephalic Neck: supple, no thyromegaly Cardiovascular: S1S2, regular Lungs: clear to auscultation bilaterally, clear to percussion Abdomen: soft, no tender, no distended, no hepatomegaly Extremities: no cyanosis, no clubbing, no edema Neurological: awake, alert, oriented Skin: intact - Procedures Procedures: Procedures Procedure Code Date EGD BIOPSY SINGLE/MULTIPLE 21820 01/25/17 EXCISION OF DUODENUM, ENDO, DIAGN [id number] 01/25/17 EXCISION OF ESOPHAGOGASTRIC JUNCTION, ENDO, DIAGN [id number] 01/25/17 EXCISION OF STOMACH, ENDO, DIAGN [id number] 01/25/17 OTHER GROUP THERAPY 94.44 04/29/15 Infectious Disease Assmt/Plan - Problem List Patient Problems: All Active Problems Delusional disorder (Acute) F22 Hyponatremia (Acute) E87.1 Pain (Acute) R52 - Assessment Assessment: 1. Leukocytosis. Improved. 2. Cellulitis of left leg. Duplex ultrasound was negative for DVT. 3. BPH. 4. Hypothyroidism. 5. Hypertension. 6. History of GERD. 7. Hyperlipidemia. 8. Major depression. Stable 9. Bronchitis. - Plan Plan: Continue the same treatment.
[2017-08-11] MEDS ORDERED: Aluminum Hydroxide 30 mL UDC PO PRN (23:46)
[2017-08-12] MEDS: Benztropine 1 MG TAB PO SCH (08:48)
[2017-08-12] MEDS: Fenofibrate, Micronized 134 mg Cap PO SCH (08:50)
[2017-08-12] MEDS ORDERED: Levothyroxine 0.075 Mg Tab PO SCH (09:00)
[2017-08-12] MEDS ORDERED: Lactobacillus Rhamnosus 10 Billion CFU Capsule PO SCH (09:00)
--- NOTE | 2017-08-12 12:23 | Infectious Disease Prog Note ---
Infectious Disease Subjective - Review of Systems Service Date: 08/12/17 Subjective: No change, Infectious Disease Objective - Results Result Diagrams: 08/10/17 05:49 08/10/17 05:49 Recent Labs: Laboratory Last Values WBC 9.6 Th/cmm (4.8-10.8) D 08/10/17 05:49 RBC 3.70 Mil/cmm (4.30-5.70) L 08/10/17 05:49 Hgb 10.8 gm/dL (12-16) L 08/10/17 05:49 Hct 32.4 % (41.0-60) L 08/10/17 05:49 MCV 87.5 fl (80-99) 08/10/17 05:49 MCH 29.3 pg (26.0-30.0) 08/10/17 05:49 MCHC Differential 33.5 pg (28.0-36.0) 08/10/17 05:49 RDW 14.7 % (11.5-20.0) 08/10/17 05:49 Plt Count 403 Th/cmm (150-400) H 08/10/17 05:49 MPV 8.2 fl 08/10/17 05:49 Neutrophils % 54.2 % (40.0-80.0) 08/10/17 05:49 Band Neutrophils % 1 % (0-10) 08/09/17 09:30 Lymphocytes % 29.1 % (20.0-50.0) 08/10/17 05:49 Monocytes % 11.0 % (2.0-10.0) H 08/10/17 05:49 Eosinophils % 5.5 % (0.0-5.0) H 08/10/17 05:49 Basophils % 0.2 % (0.0-2.0) 08/10/17 05:49 Neutrophils (Manual) 65 % (40-80) 08/09/17 09:30 Lymphocytes 22 % (20-50) 08/09/17 09:30 Monocytes 8 % (2-10) 08/09/17 09:30 Eosinophils 4 % (0-5) 08/09/17 09:30 PT 11.6 SECONDS (9.5-11.5) H 08/09/17 09:30 INR 1.11 (0.5-1.4) 08/09/17 09:30 PTT (Actin FS) 25.4 SECONDS (26.0-38.0) L 08/09/17 09:30 Sodium 139 mEq/L (136-145) 08/10/17 05:49 Potassium 4.8 mEq/L (3.5-5.1) 08/10/17 05:49 Chloride 110 mEq/L (98-107) H 08/10/17 05:49 Carbon Dioxide 25.4 mEq/L (21.0-31.0) 08/10/17 05:49 Anion Gap 8.4 (7.0-16.0) 08/10/17 05:49 BUN 13 mg/dL (7-25) 08/10/17 05:49 Creatinine 1.0 mg/dL (0.7-1.3) 08/10/17 05:49 Est GFR ( Amer) > 60.0 ml/min (>90) 08/10/17 05:49 Est GFR (Non-Af Amer) > 60.0 ml/min 08/10/17 05:49 BUN/Creatinine Ratio 13.0 08/10/17 05:49 Glucose 92 mg/dL (70-105) 08/10/17 05:49 POC Glucose 127 MG/DL (70 - 105) H 08/09/17 13:04 Hemoglobin A1c % 5.6 % (4.0-6.0) 08/09/17 09:30 Whole Bld Lactic Acid 1.21 mmol/L (0.60-1.99) 08/09/17 10:08 Calcium 9.3 mg/dL (8.6-10.3) 08/10/17 05:49 Total Bilirubin 0.3 mg/dL (0.3-1.0) 08/10/17 05:49 AST 11 U/L (13-39) L 08/10/17 05:49 ALT 10 U/L (7-52) 08/10/17 05:49 Alkaline Phosphatase 35 U/L (34-104) 08/10/17 05:49 Troponin I < 0.01 ng/mL (0.01-0.05) L 08/09/17 09:30 B-Natriuretic Peptide 22.2 pg/mL (5.0-100.0) 08/09/17 09:30 Total Protein 5.8 gm/dL (6.0-8.3) L 08/10/17 05:49 Albumin 3.4 gm/dL (4.2-5.5) L 08/10/17 05:49 Globulin 2.4 gm/dL 08/10/17 05:49 Albumin/Globulin Ratio 1.4 (1.0-1.8) 08/10/17 05:49 Prostate Specific Ag 0.9 ng/mL (0.0-4.0) 08/09/17 09:30 Urine Source RANDOM 08/09/17 10:03 Urine Color YELLOW 08/09/17 10:03 Urine Clarity SLIGHT CLOUDY (CLEAR) 08/09/17 10:03 Urine pH 8.0 (4.6 - 8.0) 08/09/17 10:03 Ur Specific [place] 1.015 (1.005-1.030) 08/09/17 10:03 Urine Protein NEGATIVE mg/dL (NEGATIVE) 08/09/17 10:03 Urine Glucose (UA) NEGATIVE mg/dL (NEGATIVE) 08/09/17 10:03 Urine Ketones NEGATIVE mg/dL (NEGATIVE) 08/09/17 10:03 Urine Blood NEGATIVE (NEGATIVE) 08/09/17 10:03 Urine Nitrate NEGATIVE (NEGATIVE) 08/09/17 10:03 Urine Bilirubin NEGATIVE (NEGATIVE) 08/09/17 10:03 Urine Urobilinogen 0.2 E.U./dL (0.2 - 1.0) 08/09/17 10:03 Ur Leukocyte Esterase NEGATIVE (NEGATIVE) 08/09/17 10:03 Urine RBC 0-2 /hpf (0-5) H 08/09/17 10:03 Urine WBC 0-2 /hpf (0-5) 08/09/17 10:03 Ur Epithelial Cells OCCASIONAL /lpf (FEW) 08/09/17 10:03 Amorphous Sediment MODERATE PHOSPHATES (NONE SEEN) 08/09/17 10:03 Urine Bacteria OCCASIONAL /hpf (NONE SEEN) 08/09/17 10:03 Vancomycin Trough 15.2 ug/mL (10-20) 08/11/17 08:05 - Physical Exam Vitals and I&O: Vital Signs Temp 98.4 F 08/12/17 04:00 Pulse 92 08/12/17 08:48 Resp 18 08/12/17 04:00 BP 107/59 11/27/17 08:48 Pulse Ox 98 08/12/17 04:00 Intake & Output 08/11/17 08/12/17 08/12/17 18:59 06:59 18:59 Intake Total 1050 350 Output Total 2000 Balance 1050 -1650 Weight (lbs) 84.368 kg 84.368 kg Intake: Intake, IV Amount 250 250 Vancomycin HCl 1.25 gm In 250 250 Sodium Chloride 0.9% 250 ml @ 165 mls/hr IV Q12H [facility] Rx#:[id number] Oral 800 100 Output: Urine 2000 Other: # Voids 4 # Bowel Movements 2 Active Medications: Current Medications Acetaminophen (Tylenol) 650 mg PO Q4HR PRN PRN Reason: Fever >100.5 Stop: 10/08/17 18:26 Last Admin: 08/11/17 05:19 Dose: 650 mg Aluminum Hydroxide (Amphojel) 30 ml PO Q6HR PRN PRN Reason: HEART BURN Stop: 10/10/17 23:45 Aspirin (Ecotrin) 81 mg PO DAILY [facility] Stop: 10/09/17 08:59 Last Admin: 08/12/17 08:50 Dose: 81 mg Benztropine Mesylate (Cogentin) 1 mg PO BID [facility] Stop: 10/09/17 08:59 Last Admin: 08/12/17 08:48 Dose: 1 mg Clonazepam (Klonopin) 0.5 mg PO BID [facility] PRN Reason: Protocol Stop: 10/09/17 08:59 Last Admin: 08/12/17 08:50 Dose: 0.5 mg Clozapine (Clozaril) 300 mg PO HS [facility] PRN Reason: Protocol Stop: 10/08/17 20:59 Last Admin: 08/11/17 21:12 Dose: 300 mg Divalproex Sodium (Depakote Dr) 1,000 mg PO Q12HR [facility] PRN Reason: Protocol Stop: 10/08/17 20:59 Last Admin: 08/12/17 08:50 Dose: 1,000 mg Famotidine (Pepcid) 20 mg PO DAILY [facility] Stop: 10/09/17 08:59 Last Admin: 08/12/17 08:50 Dose: 20 mg Fenofibrate (Tricor) 134 mg PO DAILY [facility] Stop: 10/09/17 08:59 Last Admin: 08/12/17 08:50 Dose: 134 mg Guaifenesin/Dextromethorphan (Robitussin Dm) 10 ml PO Q6HR PRN PRN Reason: Cough Stop: 10/08/17 15:42 Vancomycin HCl 1.25 gm/ Sodium (Chloride) 250 mls @ 165 mls/hr IV Q12H [facility] Stop: 10/08/17 20:59 Last Admin: 08/12/17 10:24 Dose: 165 mls/hr Lactobacillus Rhamnosus (Culturelle) 1 each PO DAILY [facility] Stop: 10/11/17 08:59 Last Admin: 08/12/17 08:49 Dose: 1 each Levothyroxine Sodium (Synthroid) 0.15 mg PO DAILY [facility] Stop: 10/11/17 08:59 Lisinopril (Zestril) 5 mg PO DAILY [facility] Stop: 10/09/17 08:59 Last Admin: 08/12/17 08:48 Dose: 5 mg Miscellaneous (Vancomycin Iv Per Pharmacy) 1 ea PRN PRN PRN Reason: VANCOMYCIN PER RX Stop: 10/08/17 14:11 Miscellaneous (Probiotic Screen) 1 ea PRN PRN PRN Reason: PROTOCOL Stop: 10/10/17 13:14 Ondansetron HCl (Zofran) 4 mg IV Q4H PRN PRN Reason: Nausea / Vomiting Stop: 10/10/17 23:41 Quetiapine Fumarate (Seroquel) 300 mg PO HS [facility] PRN Reason: Protocol Stop: 10/08/17 20:59 Last Admin: 08/11/17 21:07 Dose: 300 mg Tamsulosin HCl (Flomax) 0.4 mg PO HS [facility] Stop: 10/08/17 20:59 Last Admin: 08/11/17 21:08 Dose: 0.4 mg Temazepam (Restoril) 15 mg PO HS PRN; Protocol PRN Reason: Insomnia Stop: 10/08/17 20:38 Last Admin: 08/09/17 21:43 Dose: 15 mg Trazodone HCl (Desyrel) 50 mg PO HS [facility] PRN Reason: Protocol Stop: 10/09/17 12:20 Last Admin: 08/11/17 21:08 Dose: 50 mg General: no acute distress, well developed, well nourished HEENT: atraumatic, normocephalic, PERRLA, EOMI Neck: supple, no thyromegaly Cardiovascular: S1S2, regular Lungs: clear to auscultation bilaterally, clear to percussion Abdomen: soft, no tender, no distended Extremities: other (swelling of left leg improving.), no cyanosis, no clubbing, no edema Neurological: awake, alert, oriented, CN 2-12 intact Skin: intact - Procedures Procedures: Procedures Procedure Code Date EGD BIOPSY SINGLE/MULTIPLE 14536 01/25/17 EXCISION OF DUODENUM, ENDO, DIAGN [id number] 01/25/17 EXCISION OF ESOPHAGOGASTRIC JUNCTION, ENDO, DIAGN [id number] 01/25/17 EXCISION OF STOMACH, ENDO, DIAGN [id number] 01/25/17 OTHER GROUP THERAPY 94.44 04/29/15 Infectious Disease Assmt/Plan - Problem List Patient Problems: All Active Problems Delusional disorder (Acute) F22 Hyponatremia (Acute) E87.1 Pain (Acute) R52 - Assessment Assessment: 1. Leukocytosis. Improved. 2. Cellulitis of left leg. Duplex ultrasound was negative for DVT. 3. BPH. 4. Hypothyroidism. 5. Hypertension. 6. History of GERD. 7. Hyperlipidemia. 8. Major depression. Stable 9. Bronchitis. - Plan Plan: Continue the same treatment. may continue vanco IV for 7 more days.
--- NOTE | 2017-08-12 14:49 | General Progress Note ---
Subjective - Review of Systems Events since last encounter: no change no fever Objective - Results Result Diagrams: 08/10/17 05:49 08/10/17 05:49 Recent Labs: Laboratory Last Values WBC 9.6 Th/cmm (4.8-10.8) D 08/10/17 05:49 RBC 3.70 Mil/cmm (4.30-5.70) L 08/10/17 05:49 Hgb 10.8 gm/dL (12-16) L 08/10/17 05:49 Hct 32.4 % (41.0-60) L 08/10/17 05:49 MCV 87.5 fl (80-99) 08/10/17 05:49 MCH 29.3 pg (26.0-30.0) 08/10/17 05:49 MCHC Differential 33.5 pg (28.0-36.0) 08/10/17 05:49 RDW 14.7 % (11.5-20.0) 08/10/17 05:49 Plt Count 403 Th/cmm (150-400) H 08/10/17 05:49 MPV 8.2 fl 08/10/17 05:49 Neutrophils % 54.2 % (40.0-80.0) 08/10/17 05:49 Band Neutrophils % 1 % (0-10) 08/09/17 09:30 Lymphocytes % 29.1 % (20.0-50.0) 08/10/17 05:49 Monocytes % 11.0 % (2.0-10.0) H 08/10/17 05:49 Eosinophils % 5.5 % (0.0-5.0) H 08/10/17 05:49 Basophils % 0.2 % (0.0-2.0) 08/10/17 05:49 Neutrophils (Manual) 65 % (40-80) 08/09/17 09:30 Lymphocytes 22 % (20-50) 08/09/17 09:30 Monocytes 8 % (2-10) 08/09/17 09:30 Eosinophils 4 % (0-5) 08/09/17 09:30 PT 11.6 SECONDS (9.5-11.5) H 08/09/17 09:30 INR 1.11 (0.5-1.4) 08/09/17 09:30 PTT (Actin FS) 25.4 SECONDS (26.0-38.0) L 08/09/17 09:30 Sodium 139 mEq/L (136-145) 08/10/17 05:49 Potassium 4.8 mEq/L (3.5-5.1) 08/10/17 05:49 Chloride 110 mEq/L (98-107) H 08/10/17 05:49 Carbon Dioxide 25.4 mEq/L (21.0-31.0) 08/10/17 05:49 Anion Gap 8.4 (7.0-16.0) 08/10/17 05:49 BUN 13 mg/dL (7-25) 08/10/17 05:49 Creatinine 1.0 mg/dL (0.7-1.3) 08/10/17 05:49 Est GFR ( Amer) > 60.0 ml/min (>90) 08/10/17 05:49 Est GFR (Non-Af Amer) > 60.0 ml/min 08/10/17 05:49 BUN/Creatinine Ratio 13.0 08/10/17 05:49 Glucose 92 mg/dL (70-105) 08/10/17 05:49 POC Glucose 127 MG/DL (70 - 105) H 08/09/17 13:04 Hemoglobin A1c % 5.6 % (4.0-6.0) 08/09/17 09:30 Whole Bld Lactic Acid 1.21 mmol/L (0.60-1.99) 08/09/17 10:08 Calcium 9.3 mg/dL (8.6-10.3) 08/10/17 05:49 Total Bilirubin 0.3 mg/dL (0.3-1.0) 08/10/17 05:49 AST 11 U/L (13-39) L 08/10/17 05:49 ALT 10 U/L (7-52) 08/10/17 05:49 Alkaline Phosphatase 35 U/L (34-104) 08/10/17 05:49 Troponin I < 0.01 ng/mL (0.01-0.05) L 08/09/17 09:30 B-Natriuretic Peptide 22.2 pg/mL (5.0-100.0) 08/09/17 09:30 Total Protein 5.8 gm/dL (6.0-8.3) L 08/10/17 05:49 Albumin 3.4 gm/dL (4.2-5.5) L 08/10/17 05:49 Globulin 2.4 gm/dL 08/10/17 05:49 Albumin/Globulin Ratio 1.4 (1.0-1.8) 08/10/17 05:49 Prostate Specific Ag 0.9 ng/mL (0.0-4.0) 08/09/17 09:30 Urine Source RANDOM 08/09/17 10:03 Urine Color YELLOW 08/09/17 10:03 Urine Clarity SLIGHT CLOUDY (CLEAR) 08/09/17 10:03 Urine pH 8.0 (4.6 - 8.0) 08/09/17 10:03 Ur Specific [place] 1.015 (1.005-1.030) 08/09/17 10:03 Urine Protein NEGATIVE mg/dL (NEGATIVE) 08/09/17 10:03 Urine Glucose (UA) NEGATIVE mg/dL (NEGATIVE) 08/09/17 10:03 Urine Ketones NEGATIVE mg/dL (NEGATIVE) 08/09/17 10:03 Urine Blood NEGATIVE (NEGATIVE) 08/09/17 10:03 Urine Nitrate NEGATIVE (NEGATIVE) 08/09/17 10:03 Urine Bilirubin NEGATIVE (NEGATIVE) 08/09/17 10:03 Urine Urobilinogen 0.2 E.U./dL (0.2 - 1.0) 08/09/17 10:03 Ur Leukocyte Esterase NEGATIVE (NEGATIVE) 08/09/17 10:03 Urine RBC 0-2 /hpf (0-5) H 08/09/17 10:03 Urine WBC 0-2 /hpf (0-5) 08/09/17 10:03 Ur Epithelial Cells OCCASIONAL /lpf (FEW) 08/09/17 10:03 Amorphous Sediment MODERATE PHOSPHATES (NONE SEEN) 08/09/17 10:03 Urine Bacteria OCCASIONAL /hpf (NONE SEEN) 08/09/17 10:03 Vancomycin Trough 15.2 ug/mL (10-20) 08/11/17 08:05 - Physical Exam Vitals and I&O: Vital Signs Temp 97.6 F 08/12/17 14:01 Pulse 72 08/12/17 14:01 Resp 16 08/12/17 14:01 BP 102/49 08/12/17 14:01 Pulse Ox 99 08/12/17 14:01 Intake & Output 08/11/17 08/12/17 08/12/17 18:59 06:59 18:59 Intake Total 1050 350 Output Total 2000 Balance 1050 -1650 Weight (lbs) 84.368 kg 84.368 kg Intake: Intake, IV Amount 250 250 Vancomycin HCl 1.25 gm In 250 250 Sodium Chloride 0.9% 250 ml @ 165 mls/hr IV Q12H [facility] Rx#:[id number] Oral 800 100 Output: Urine 2000 Other: # Voids 4 # Bowel Movements 2 Active Medications: Current Medications Acetaminophen (Tylenol) 650 mg PO Q4HR PRN PRN Reason: Fever >100.5 Stop: 10/08/17 18:26 Last Admin: 08/11/17 05:19 Dose: 650 mg Aluminum Hydroxide (Amphojel) 30 ml PO Q6HR PRN PRN Reason: HEART BURN Stop: 10/10/17 23:45 Aspirin (Ecotrin) 81 mg PO DAILY [facility] Stop: 10/09/17 08:59 Last Admin: 08/12/17 08:50 Dose: 81 mg Benztropine Mesylate (Cogentin) 1 mg PO BID [facility] Stop: 10/09/17 08:59 Last Admin: 08/12/17 08:48 Dose: 1 mg Clonazepam (Klonopin) 0.5 mg PO BID [facility] PRN Reason: Protocol Stop: 10/09/17 08:59 Last Admin: 08/12/17 08:50 Dose: 0.5 mg Clozapine (Clozaril) 300 mg PO HS [facility] PRN Reason: Protocol Stop: 10/08/17 20:59 Last Admin: 08/11/17 21:12 Dose: 300 mg Divalproex Sodium (Depakote Dr) 1,000 mg PO Q12HR [facility] PRN Reason: Protocol Stop: 10/08/17 20:59 Last Admin: 08/12/17 08:50 Dose: 1,000 mg Famotidine (Pepcid) 20 mg PO DAILY [facility] Stop: 10/09/17 08:59 Last Admin: 08/12/17 08:50 Dose: 20 mg Fenofibrate (Tricor) 134 mg PO DAILY [facility] Stop: 10/09/17 08:59 Last Admin: 08/12/17 08:50 Dose: 134 mg Guaifenesin/Dextromethorphan (Robitussin Dm) 10 ml PO Q6HR PRN PRN Reason: Cough Stop: 10/08/17 15:42 Vancomycin HCl 1.25 gm/ Sodium (Chloride) 250 mls @ 165 mls/hr IV Q12H [facility] Stop: 10/08/17 20:59 Last Admin: 08/12/17 10:24 Dose: 165 mls/hr Lactobacillus Rhamnosus (Culturelle) 1 each PO DAILY [facility] Stop: 10/11/17 08:59 Last Admin: 08/12/17 08:49 Dose: 1 each Levothyroxine Sodium (Synthroid) 0.15 mg PO DAILY [facility] Stop: 10/11/17 08:59 Lisinopril (Zestril) 5 mg PO DAILY [facility] Stop: 10/09/17 08:59 Last Admin: 08/12/17 08:48 Dose: 5 mg Miscellaneous (Vancomycin Iv Per Pharmacy) 1 ea PRN PRN PRN Reason: VANCOMYCIN PER RX Stop: 10/08/17 14:11 Miscellaneous (Probiotic Screen) 1 ea PRN PRN PRN Reason: PROTOCOL Stop: 10/10/17 13:14 Ondansetron HCl (Zofran) 4 mg IV Q4H PRN PRN Reason: Nausea / Vomiting Stop: 10/10/17 23:41 Quetiapine Fumarate (Seroquel) 300 mg PO HS [facility] PRN Reason: Protocol Stop: 10/08/17 20:59 Last Admin: 08/11/17 21:07 Dose: 300 mg Tamsulosin HCl (Flomax) 0.4 mg PO HS [facility] Stop: 10/08/17 20:59 Last Admin: 08/11/17 21:08 Dose: 0.4 mg Temazepam (Restoril) 15 mg PO HS PRN; Protocol PRN Reason: Insomnia Stop: 10/08/17 20:38 Last Admin: 08/09/17 21:43 Dose: 15 mg Trazodone HCl (Desyrel) 50 mg PO HS [facility] PRN Reason: Protocol Stop: 10/09/17 12:20 Last Admin: 08/11/17 21:08 Dose: 50 mg General: No acute distress HEENT: Atraumatic Neck: Supple, Thyromegaly Cardiovascular: Regular rate - Procedures Procedures: Procedures Procedure Code Date EGD BIOPSY SINGLE/MULTIPLE 29904 01/25/17 EXCISION OF DUODENUM, ENDO, DIAGN [id number] 01/25/17 EXCISION OF ESOPHAGOGASTRIC JUNCTION, ENDO, DIAGN [id number] 01/25/17 EXCISION OF STOMACH, ENDO, DIAGN [id number] 01/25/17 OTHER GROUP THERAPY 94.44 04/29/15 Assessment/Plan - Problem List Patient Problems: All Active Problems Delusional disorder (Acute) F22 Hyponatremia (Acute) E87.1 Pain (Acute) R52 - Plan Plan: cpm
[2017-08-13] MEDS ORDERED: Levothyroxine 0.075 Mg Tab PO SCH (09:00)
== END 2017-08-12 16:17 | disposition home or self-care (01) | DRG 603 ==
LOC: ER 09:10 → MSI 11:52
PROVIDERS: ADMIT Internal Medicine; ATTEND Internal Medicine
DX: L03.116 Cellulitis of left lower limb (principal); F03.90 Unspecified dementia, unspecified severity, without behavioral disturbance, psychotic disturbance, mood disturbance, and anxiety; R65.10 Systemic inflammatory response syndrome (SIRS) of non-infectious origin without acute organ dysfunction; F25.9 Schizoaffective disorder, unspecified; E03.9 Hypothyroidism, unspecified; N40.0 Benign prostatic hyperplasia without lower urinary tract symptoms; I10 Essential (primary) hypertension; K21.9 Gastro-esophageal reflux disease without esophagitis; F29 Unspecified psychosis not due to a substance or known physiological condition; E78.5 Hyperlipidemia, unspecified; J40 Bronchitis, not specified as acute or chronic; D64.9 Anemia, unspecified; F32.9 Major depressive disorder, single episode, unspecified; F41.9 Anxiety disorder, unspecified; Z79.82 Long term (current) use of aspirin
CPT/HCPCS: 36415-UA; 71010-TC; 76770-TC; 80053-TC; 80202-TC; 81001-TC; 82948-90; 83036-90; 83605; 83880-TC; 84153-90; 84484-TC; 85007-TC; 85025-TC; 85027-TC; 85610-TC; 93971-TC-LT; J3370; J7030; J7040; Z7502; Z7610

== ENCOUNTER 2018-01-24 21:17 | Inpatient (IN) | payer MEDICARE, MEDICAID ==
[2018-01-25 00:18] LABS: % BASOPHILS 0.9 % (0.0-2.0); % LYMPHOCYTES 34.8 % (20.0-50.0); % MONOCYTES 8.9 % (2.0-10.0); % NEUTROPHILS 51.4 % (40.0-80.0); BASOPHILE ABSOLUTE 0.1 Th/cumm (0-0.2); EOSINOPHILE ABSOLUTE 0.3 Th/cmm (0.1-0.4); HEMATOCRIT 34.4 % (41.0-60); HEMOGLOBIN 11.7 gm/dL (12-16); LYMPHOCYTE ABSOLUTE 2.6 Th/cmm (1.5-3.0); MEAN CELL VOLUME 84.1 fl (80-99); MEAN CORPUSCULAR HEMOGLOBIN 28.6 pg (26.0-30.0); MEAN PLATELET VOLUME 7.8 fl; MONOCYTE ABSOLUTE 0.7 Th/cmm (0.3-1.0); NEUTROPHILE ABSOLUTE 3.7 Th/cmm (1.8-8.0); PLATELET COUNT 359 Th/cmm (150-400); RED BLOOD COUNT 4.09 Mil/cmm (4.30-5.70); RED CELL DISTRIBUTION WIDTH 15.5 % (11.5-20.0); WHITE BLOOD COUNT 7.4 Th/cmm (4.8-10.8)
[2018-01-25 00:35] LABS: ALB/GLOB RATIO 1.6 (1.0-1.8); ALBUMIN 3.9 gm/dL (4.2-5.5); ALKALINE PHOSPHATASE 39 U/L (34-104); ANION GAP 9.1 (7.0-16.0); BILIRUBIN,TOTAL 0.2 mg/dL (0.3-1.0); BUN - UREA NITROGEN 15 mg/dL (7-25); CALCIUM SERUM 9.6 mg/dL (8.6-10.3); CARBON DIOXIDE 23.8 mEq/L (21.0-31.0); CHLORIDE 107 mEq/L (98-107); CREATININE - SERUM 1.1 mg/dL (0.7-1.3); GFR AFRICAN-AMERICAN > 60.0 ml/min (>90); GFR NON AFRICAN-AMERICAN > 60.0 ml/min; GLUCOSE 102 mg/dL (70-105); POTASSIUM SERUM 3.9 mEq/L (3.5-5.1); SGOT 12 U/L (13-39); SGPT/ALT 10 U/L (7-52); SODIUM SERUM 136 mEq/L (136-145); TOTAL PROTEIN,SERUM 6.4 gm/dL (6.0-8.3)
--- NOTE | 2018-01-25 01:11 | ED Physician Chart ---
ED Chief Complaint/HPI - Patient Information Date Seen:: 01/25/18 Time Seen:: 01:00 Chief Complaint:: psychosis agitation back pain History of Present Illness:: 57 yr old male with psychosis and c/o low back pain moderate burning painlow back no numbness or tingling no bowel or bladder problem ,mainly psych with schizophrenia depression and seizures on multiple psych meds Allergies:: Allergies Allergy/AdvReac Type Severity Reaction Status Date / Time No Known Allergies Allergy Verified 07/30/17 00:20 Vitals:: Vital Signs - 8 hr 01/24/18 23:15 Temp 98.1 F HR 79 RR 21 BP 145/81 O2 Sat % 100 ED Review of Systems - Review of Systems General/Constitutional: No fever, No chills, No weight loss Skin: No skin lesions Head: No headache Eyes: No loss of vision ENT: No earache Neck: No neck pain Cardio Vascular: No chest pain Pulmonary: No SOB GI: No nausea, No vomiting G/U: No dysuria Musculoskeletal: Muscle pain Endocrine: No polyuria Psychiatric: Prior psych history Hematopoietic: No bruising Allergic/Immuno: No urticaria Neurological: No syncope ED Past Medical History - Past Medical History Past Medical History: HTN, Dyslipidemia, Seizures, Thyroid disorder Family History: HTN Social History: Smoker, No Alcohol, No Drug Use Surgical History: None Psychiatricy History: Depression, Schizophrenia Medication: Reviewed Family Medical History - Family Member Mother History Unknown: Yes Ethnicity: Unknown Living Status: Still Living Hx Family Cancer: No Hx Family Coronary Artery Disease: No Hx Family Congestive Heart Failure: No Hx Family Hypertension: No Hx Family Stroke: No Hx Family Diabetes: No Hx Family Seizures: No Hx Family Dementia: No Hx Family AIDS: No Hx Family HIV: No Hx Family COPD: No Hx Family Hepatitis: No Hx Family Psychiatric Problems: No Hx Family Tuberculosis: No Father History Unknown: Yes Ethnicity: Unknown Living Status: Still Living Hx Family Cancer: No Hx Family Coronary Artery Disease: No Hx Family Congestive Heart Failure: No Hx Family Hypertension: No Hx Family Stroke: No Hx Family Diabetes: No Hx Family Seizures: No Hx Family Dementia: No Hx Family AIDS: No Hx Family HIV: No Hx Family COPD: No Hx Family Hepatitis: No Hx Family Psychiatric Problems: No Hx Family Tuberculosis: No ED Physical Exam - Physical Examination General/Constitutional: Well-developed, well-nourished, Alert Other Gen/Cons comments:: psychosis agitation volatile Head: Atraumatic Eyes: Lids, conjuctiva normal Skin: No rash ENMT: Lips, teeth, gums nl Neck: Nontender, No JVD Respiratory: Nl effort/Exclusion Cardio Vascular: No murmur, gallop, rubs GI: No tenderness/rebounding/guarding : No CVA tenderness Extremities: No tenderness or effusion Neuro/Psych: Alert/oriented Misc: No paraspinal tenderness ED Labs/Radiology/EKG Results - Lab Results Results: hema ok Laboratory Tests 01/24/18 23:59 WBC 7.4 RBC 4.09 L Hgb 11.7 L Hct 34.4 L MCV 84.1 MCH 28.6 MCHC Differential 34.0 RDW 15.5 Plt Count 359 MPV 7.8 Neutrophils % 51.4 Lymphocytes % 34.8 Monocytes % 8.9 Eosinophils % 4.0 Basophils % 0.9 ED Assessment - Assessment General Assessment: psychosis agitation ED Septic Shock - . Is Septic Shock (SBP<90, OR Lactate>4 mmol\L) present?: No - <6hrs of presentation: Vital Signs: Vital Signs - 8 hr 01/24/18 23:15 Temp 98.1 F HR 79 RR 21 BP 145/81 O2 Sat % 100 ED Discharge Plan - Patient Disposition Admit/Discharge/Transfer: Acute Care w/in this hosp Condition at Disposition: Stable
[2018-01-25 01:29] LABS: URINE MICROSCOPIC INDICATED? YES; URINE SOURCE CLEAN C
[2018-01-25 01:33] LABS: URINE BILIRUBIN NEGATIVE (NEGATIVE); URINE BLOOD NEGATIVE (NEGATIVE); URINE GLUCOSE (UA) NEGATIVE (NEGATIVE); URINE KETONE NEGATIVE (NEGATIVE); URINE LEUKOCYTE ESTERASE NEGATIVE (NEGATIVE); URINE NITRATE NEGATIVE (NEGATIVE); URINE PROTEIN NEGATIVE (NEGATIVE); URINE UROBILINOGEN 0.2 E.U./dL (0.2 - 1.0)
[2018-01-25 01:37] LABS: URINE CLARITY CLEAR (CLEAR); URINE COLOR YELLOW
[2018-01-25 01:39] LABS: URINE BACTERIA NONE SEEN /hpf (NONE SEEN); URINE EPITHELIAL CELLS NONE SEEN /lpf (FEW); URINE RBC NONE SEEN /hpf (0-5); URINE WBC NONE SEEN /hpf (0-5)
[2018-01-25 01:57] LABS: AMPHETAMINE URINE NEGATIVE (NEGATIVE); BARBITURATES URINE NEGATIVE (NEGATIVE); BENZODIAZEPINES QUAL URINE NEGATIVE (NEGATIVE); CANNABINOID THC NEGATIVE (NEGATIVE); COCAINE METABOLITE QUAL URINE NEGATIVE (NEGATIVE); METHADONE URINE NEGATIVE (NEGATIVE); METHAMPHETAMINES QUAL URINE NEGATIVE (NEGATIVE); OPIATES (MORPHINE) QUAL. URINE NEGATIVE (NEGATIVE); PHENCYCLIDINE (PCP) URINE NEGATIVE (NEGATIVE); TRICYCLICS (TCA) QUAL. URINE POSITIVE (NEGATIVE)
[2018-01-25 03:04] VITALS: BP 127/65
[2018-01-25] MEDS: Levothyroxine 0.075 Mg Tab PO SCH (06:48)
[2018-01-25] MEDS: Fenofibrate, Micronized 134 mg Cap PO SCH (08:57)
[2018-01-25] MEDS: Benztropine 1 MG TAB PO SCH ×2 (08:58→17:07)
--- NOTE | 2018-01-25 09:27 | Diagnostic Imaging Report ---
CHEST X-RAY: AP view INDICATION: Cough COMPARISON: Chest x-ray 08/09/[address] abdomen and pelvis on 01/26/2017 FINDINGS: Bibasal subsegmental atelectasis versus scarring is noted. There is no focal consolidation or pleural effusions The heart is normal in size. Old left sixth rib fracture is noted. There is a small hiatal hernia. IMPRESSION: Bibasal subsegmental atelectasis versus scarring. No focal consolidation identified. Small bilateral hernia
--- NOTE | 2018-01-25 13:47 | Psychosocial Evaluation ---
DATE OF SERVICE: 01/25/2018 IDENTIFYING DATA: The patient is a 57-year-old male, resident of [facility]. Information obtained by directly interviewing the patient as well as reviewing the admission papers and they are reliable. JUSTIFICATION OF HOSPITALIZATION: The patient is admitted here on a voluntary basis in view of his acute psychosis and agitation and paranoid delusions. CHIEF COMPLAINT: "I ____ cutting my medications down. I should be getting 1000 mg of the Clozaril and 600 mg of the Depakote." HISTORY OF PRESENT ILLNESS: This is one of multiple psychiatric hospitalizations for this patient who is in Psychiatric Unit. The patient has been diagnosed to have schizoaffective disorder and had been on Seroquel and Clozaril. The patient is reported to be testing the limits and has been having difficult time to cope with the stress. Sleep and appetite prior to the hospitalization are reported to be poor. PAST PSYCHIATRIC HISTORY: Please refer to the above. The patient had a chronic history of mental illness. MEDICAL HISTORY: Physical examination is requested by Dr. Rogers. SUBSTANCE ABUSE HISTORY: None. PHYSICAL OR SEXUAL ABUSE HISTORY: None. LEGAL PROBLEMS: None at this time. STRENGTH AND ASSETS: The patient is motivated. MENTAL STATUS EXAMINATION: The patient is a 57-year-old, looking his stated age, superficially cooperative. Eye contact is poor. Mood is noted to be irritable. Affect is constricted. The patient is very intrusive and the patient is talking about his medication that has been changed and the patient's coping skills at this time are noted to be very poor. Insight and judgment are also noted to be very much impaired. The patient has been insisting on getting 1000 mg of the Clozaril and 600 mg of the Depakote. The patient has been having tangentiality. Coping skills are noted to be very poor. The patient; however, is noted to be alert and oriented x 3. Short and long-term memory seems to be fair. DIAGNOSTIC IMPRESSION: 1. AXIS I: Schizoaffective disorder. 2. AXIS II: None. 3. AXIS III: As per Dr. Rogers. IMMEDIATE TREATMENT PLAN: The patient is going to be observed on Inpatient Unit, provided with supportive psychotherapy. The patient is going to be continued on the Clozaril 300 mg at bedtime and Seroquel 200 mg at bedtime. The patient is going to be placed on the valproic acid, which is going to be given at 1000 mg every 12 hours and the patient is going to be closely monitored. Once stabilized, the patient is going to be discharged to self to be followed up on an outpatient basis. ESTIMATED LENGTH OF STAY: 5-7 days. DISCHARGE CRITERIA: When he no longer a threat to self or others and be able to cope up with the stress. JOB# [id number]
[2018-01-26] MEDS: Levothyroxine 0.075 Mg Tab PO SCH (06:54)
[2018-01-26] MEDS: Fenofibrate, Micronized 134 mg Cap PO SCH (08:39)
[2018-01-26] MEDS: Benztropine 1 MG TAB PO SCH ×2 (08:39→16:47)
--- NOTE | 2018-01-26 18:00 | Progress Notes ---
DATE: 01/26/2018 SUBJECTIVE: Staff was spoken to. The patient is interviewed. Mood is noted to be irritable. Affect is constricted. Coping skills are noted to be still poor. The patient is still responding to internal stimuli, stating that he needs to be on 1000 mg of the Clozaril. The patient has no insight into his illness. The patient is currently on 300 mg of the Clozaril at bedtime along with 300 mg of the Seroquel. The patient has been drowsy at this time. Continues to be very paranoid. Insight and judgment are very much impaired. WBCs are noted to be 7.4 and albumin is low at slightly 3.9 and the patient has been closely monitored at this time. No side effects to the medications are noted. ASSESSMENT: The patient is still psychotic. PLAN: To continue the patient with the supportive therapy and request for the Depakote level. JOB# [id number]
[2018-01-27] MEDS: Levothyroxine 0.075 Mg Tab PO SCH (06:46)
[2018-01-27] MEDS: Fenofibrate, Micronized 134 mg Cap PO SCH (09:13)
[2018-01-27] MEDS: Benztropine 1 MG TAB PO SCH ×2 (09:13→17:24)
--- NOTE | 2018-01-27 21:21 | Consultation ---
DATE OF CONSULTATION: 01/27/2018 REFERRING PHYSICIAN: Nikko Pearson M.D. TYPE OF CONSULTATION: Psychology. HISTORY OF PRESENT ILLNESS: The patient is a 57-year-old male. The patient is a resident of [facility]. The following is by review of the medical record and by the patient's self report. The patient is being admitted due to acute psychosis as well as agitated behavior and possible paranoid delusion. The patient is reported to have been testing the limits at his correction facility and unable to cope with stress or to be behaviorally redirected. The patient denies any suicidal ideation, plan or intention. PAST MEDICAL HISTORY: Please see history and physical by Dr. Rogers. PAST PSYCHIATRIC HISTORY: The patient is being seen by psychiatrist at his facility. The patient has a history of schizoaffective disorder. SUBSTANCE ABUSE HISTORY: The patient denies any. PSYCHOSOCIAL HISTORY: The patient did not answer questions about occupational or educational history or evangelical affiliation. The patient denied any history of physical or sexual abuse. The patient denied any current legal problems. MENTAL STATUS EXAMINATION: The patient appears to be his stated age. The patient's attitude is superficially cooperative. Eye contact is poor. Mood is irritable. Affect is constricted. The patient's speech is pressured. The patient's thought process shows to perseverate on medication management. The patient continued to repeat that he was trying to reduce his medications. The patient denied any auditory or visual hallucinations. The patient was markedly tangential and perseveration made it difficult to cognitively redirect the patient's concentration and thought process. The patient's short term memory seems to be fair. Long-term memory seems to be fair. Impulse control is poor. Sensorium is alert and oriented x3. The patient did not participate in the interpretation of proverbs. Insight is poor. Judgment is compromised. DIAGNOSTIC IMPRESSION: AXIS I: History of schizoaffective disorder. AXIS II: Deferred. AXIS III: Please see history and physical by Dr. Rogers. TREATMENT PLAN: The patient has been seen by Dr. Pearson for psychiatric evaluation and further management of the patient's psychotropic medications. We will provide supportive psychotherapy to include reality testing and reality integration. We will provide cognitive therapy to assist the patient in being able to reduce his perseveration on medication and to be able to verbalize his concerns. We will provide coping strategies for chronic long-term mental illness. We will also provide coping strategies for phase of life issues. We will provide de-escalation as well as an emotional and self-regulation skill, so that the patient is no longer intrusive with others. We will provide limit setting to include the positive reinforcement for appropriate behavior. We will provide behavioral management as well as stress management skills. Thank you, Dr. Pearson for this consult and the opportunity to participate with you in this patient's care. JOB# [id number] DENNY
--- NOTE | 2018-01-28 04:22 | Progress Notes ---
DATE: 01/27/2018 PSYCHIATRIC PROGRESS NOTE SUBJECTIVE: Staff was spoken to. The patient is interviewed. Mood is noted to be irritable. Affect is constricted. Insight and judgment at this time are noted to be still impaired. Impulse control is noted to be poor. The patient has been getting easily irritable. No side effects to the medications are noted at this time. The patient is currently on Clozaril, which he is getting 300 mg at bedtime. The patient is also on 300 mg of the Seroquel at night time. No side effects to the medications are noted. The patient continues to be paranoid at this time. PLAN: To continue the patient with the supportive therapy. I encouraged the patient to verbalize the concerns rather than to act out. JOB# [id number]
[2018-01-28] MEDS: Levothyroxine 0.075 Mg Tab PO SCH (06:54)
[2018-01-28] MEDS: Fenofibrate, Micronized 134 mg Cap PO SCH (09:01)
[2018-01-28] MEDS: Benztropine 1 MG TAB PO SCH ×2 (09:02→16:34)
--- NOTE | 2018-01-28 15:05 | Progress Notes ---
DATE: 01/28/2018 PSYCHIATRIC PROGRESS NOTE SUBJECTIVE: Staff was spoken to. The patient is interviewed. Mood is noted to be irritable. Affect is constricted. Insight and judgment at this time are noted to be still impaired. Impulse control is noted to be limited. The patient has been stating that he needs to be on a higher dose on the Clozaril as well as the Seroquel. The patient has been demanding that small dose of the Clozaril is not helping him. The patient is currently on the 300 mg, which is going to be changed to 400 mg and the Seroquel is going to be decreased to 200 mg and the patient is going to be followed up with the supportive therapy. The patient is going to be closely monitored and encouraged to verbalize the concerns rather than to act out. Please note that the patient is still psychotic and is not ready to be discharged to a lower level of care. JOB# [id number]
[2018-01-29] MEDS: Levothyroxine 0.075 Mg Tab PO SCH (06:34)
[2018-01-29] MEDS: Fenofibrate, Micronized 134 mg Cap PO SCH (08:50)
[2018-01-29] MEDS: Benztropine 1 MG TAB PO SCH ×2 (08:51→17:22)
--- NOTE | 2018-01-29 09:23 | General Progress Note ---
Subjective - Review of Systems Events since last encounter: awake irritable mood Objective - Results Result Diagrams: 01/24/18 23:59 01/24/18 23:59 Recent Labs: Laboratory Last Values WBC 7.4 Th/cmm (4.8-10.8) 01/24/18 23:59 RBC 4.09 Mil/cmm (4.30-5.70) L 01/24/18 23:59 Hgb 11.7 gm/dL (12-16) L 01/24/18 23:59 Hct 34.4 % (41.0-60) L 01/24/18 23:59 MCV 84.1 fl (80-99) 01/24/18 23:59 MCH 28.6 pg (26.0-30.0) 01/24/18 23:59 MCHC Differential 34.0 pg (28.0-36.0) 01/24/18 23:59 RDW 15.5 % (11.5-20.0) 01/24/18 23:59 Plt Count 359 Th/cmm (150-400) 01/24/18 23:59 MPV 7.8 fl 01/24/18 23:59 Neutrophils % 51.4 % (40.0-80.0) 01/24/18 23:59 Lymphocytes % 34.8 % (20.0-50.0) 01/24/18 23:59 Monocytes % 8.9 % (2.0-10.0) 01/24/18 23:59 Eosinophils % 4.0 % (0.0-5.0) 01/24/18 23:59 Basophils % 0.9 % (0.0-2.0) 01/24/18 23:59 Sodium 136 mEq/L (136-145) 01/24/18 23:59 Potassium 3.9 mEq/L (3.5-5.1) 01/24/18 23:59 Chloride 107 mEq/L (98-107) 01/24/18 23:59 Carbon Dioxide 23.8 mEq/L (21.0-31.0) 01/24/18 23:59 Anion Gap 9.1 (7.0-16.0) 01/24/18 23:59 BUN 15 mg/dL (7-25) 01/24/18 23:59 Creatinine 1.1 mg/dL (0.7-1.3) 01/24/18 23:59 Est GFR ( Amer) > 60.0 ml/min (>90) 01/24/18 23:59 Est GFR (Non-Af Amer) > 60.0 ml/min 01/24/18 23:59 BUN/Creatinine Ratio 13.6 01/24/18 23:59 Glucose 102 mg/dL (70-105) 01/24/18 23:59 Calcium 9.6 mg/dL (8.6-10.3) 01/24/18 23:59 Total Bilirubin 0.2 mg/dL (0.3-1.0) L 01/24/18 23:59 AST 12 U/L (13-39) L 01/24/18 23:59 ALT 10 U/L (7-52) 01/24/18 23:59 Alkaline Phosphatase 39 U/L (34-104) 01/24/18 23:59 Total Protein 6.4 gm/dL (6.0-8.3) 01/24/18 23:59 Albumin 3.9 gm/dL (4.2-5.5) L 01/24/18 23:59 Globulin 2.5 gm/dL 01/24/18 23:59 Albumin/Globulin Ratio 1.6 (1.0-1.8) 01/24/18 23:59 Urine Source CLEAN C 01/25/18 01:05 Urine Color YELLOW 01/25/18 01:05 Urine Clarity CLEAR (CLEAR) 01/25/18 01:05 Urine pH 7.0 (4.6 - 8.0) 01/25/18 01:05 Ur Specific [place] 1.010 (1.005-1.030) 01/25/18 01:05 Urine Protein NEGATIVE mg/dL (NEGATIVE) 01/25/18 01:05 Urine Glucose (UA) NEGATIVE mg/dL (NEGATIVE) 01/25/18 01:05 Urine Ketones NEGATIVE mg/dL (NEGATIVE) 01/25/18 01:05 Urine Blood NEGATIVE (NEGATIVE) 01/25/18 01:05 Urine Nitrate NEGATIVE (NEGATIVE) 01/25/18 01:05 Urine Bilirubin NEGATIVE (NEGATIVE) 01/25/18 01:05 Urine Urobilinogen 0.2 E.U./dL (0.2 - 1.0) 01/25/18 01:05 Ur Leukocyte Esterase NEGATIVE (NEGATIVE) 01/25/18 01:05 Urine RBC NONE SEEN /hpf (0-5) 01/25/18 01:05 Urine WBC NONE SEEN /hpf (0-5) 01/25/18 01:05 Ur Epithelial Cells NONE SEEN /lpf (FEW) 01/25/18 01:05 Urine Bacteria NONE SEEN /hpf (NONE SEEN) 01/25/18 01:05 Urine Opiates Screen NEGATIVE (NEGATIVE) 01/25/18 01:05 Urine Methadone Screen NEGATIVE (NEGATIVE) 01/25/18 01:05 Ur Barbiturates Screen NEGATIVE (NEGATIVE) 01/25/18 01:05 Valproic Acid 56.9 ug/mL (50.0-100.0) 01/26/18 13:51 Ur Tricyclics Screen POSITIVE (NEGATIVE) H 01/25/18 01:05 Ur Phencyclidine Scrn NEGATIVE (NEGATIVE) 01/25/18 01:05 Amphetamines Screen NEGATIVE (NEGATIVE) 01/25/18 01:05 U Methamphetamines Scrn NEGATIVE (NEGATIVE) 01/25/18 01:05 U Benzodiazepines Scrn NEGATIVE (NEGATIVE) 01/25/18 01:05 U Cocaine Metab Screen NEGATIVE (NEGATIVE) 01/25/18 01:05 U Cannabinoids Screen NEGATIVE (NEGATIVE) 01/25/18 01:05 - Physical Exam Vitals and I&O: Vital Signs Temp 98 F 01/29/18 04:52 Pulse 70 01/29/18 08:50 Resp 19 01/29/18 04:52 BP 108/69 01/29/18 08:50 Pulse Ox 97 01/29/18 04:52 Intake & Output 01/28/18 01/29/18 01/29/18 18:59 06:59 18:59 Intake Total 2800 480 Balance 2800 480 Intake: Oral 2800 480 Other: # Voids 4 2 # Bowel Movements 1 Active Medications: Current Medications Acetaminophen (Tylenol) 650 mg PO Q4HR PRN PRN Reason: Fever >100.5 Stop: 03/26/18 04:49 Aspirin (Ecotrin) 81 mg PO DAILY [facility] Stop: 03/26/18 08:59 Last Admin: 01/29/18 08:51 Dose: 81 mg Benztropine Mesylate (Cogentin) 1 mg PO BID [facility] Stop: 03/26/18 08:59 Last Admin: 01/29/18 08:51 Dose: 1 mg Clonazepam (Klonopin) 0.5 mg PO BID [facility] PRN Reason: Protocol Stop: 03/26/18 08:59 Last Admin: 01/29/18 08:50 Dose: 0.5 mg Clozapine (Clozaril) 400 mg PO HS [facility] PRN Reason: Protocol Stop: 03/29/18 20:59 Last Admin: 01/28/18 21:30 Dose: 400 mg Famotidine (Pepcid) 20 mg PO QDAC [facility] Stop: 03/26/18 07:29 Last Admin: 01/29/18 06:34 Dose: 20 mg Fenofibrate (Tricor) 134 mg PO DAILY [facility] Stop: 03/26/18 08:59 Last Admin: 01/29/18 08:50 Dose: 134 mg Levothyroxine Sodium (Synthroid) 0.15 mg PO QDAC [facility] Stop: 03/26/18 07:29 Last Admin: 01/29/18 06:34 Dose: 0.15 mg Lisinopril (Zestril) 5 mg PO DAILY [facility] Stop: 03/26/18 08:59 Last Admin: 01/29/18 08:50 Dose: Not Given Quetiapine Fumarate (Seroquel) 200 mg PO HS [facility] PRN Reason: Protocol Stop: 03/29/18 20:59 Last Admin: 01/28/18 21:30 Dose: 200 mg Tamsulosin HCl (Flomax) 0.4 mg PO HS [facility] Stop: 03/26/18 20:59 Last Admin: 01/28/18 21:30 Dose: 0.4 mg Valproate Sodium (Depakene) 1,000 mg PO BID [facility] Stop: 03/26/18 16:59 Last Admin: 01/29/18 08:49 Dose: 1,000 mg Zolpidem Tartrate (Ambien) 5 mg PO HS PRN PRN Reason: Insomnia Stop: 03/26/18 05:04 General: No acute distress HEENT: Atraumatic Cardiovascular: Regular rate, Normal S1, Normal S2 Abdomen: Bowel sounds - Procedures Procedures: Procedures Procedure Code Date EGD BIOPSY SINGLE/MULTIPLE 48672 01/25/17 EXCISION OF DUODENUM, ENDO, DIAGN [id number] 01/25/17 EXCISION OF ESOPHAGOGASTRIC JUNCTION, ENDO, DIAGN [id number] 01/25/17 EXCISION OF STOMACH, ENDO, DIAGN [id number] 01/25/17 OTHER GROUP THERAPY 94.44 04/29/15 Assessment/Plan - Problem List Patient Problems: All Active Problems Schizophrenia (Acute) F20.9 - Plan Plan: as per psych not ready for discharge
--- NOTE | 2018-01-29 22:39 | Progress Notes ---
DATE: 01/29/2018 SUBJECTIVE: Staff was spoken to. The patient is interviewed. Mood is noted to be irritable. Affect is constricted. Insight and judgment are impaired. Impulse control is poor. Coping skills are also noted to be poor. The patient has been having difficult time to cope with the stress. No side effects to the medications are noted. The patient has been insisting on having his way. ASSESSMENT: The patient is still impulsive and psychotic. The patient wants more and more of the Clozaril. The patient at this time is not able to contract for safety. PLAN: To continue the patient with the supportive therapy, encouraged the patient to verbalize the concerns rather than to act out. JOB# [id number]
--- NOTE | 2018-01-29 23:12 | History & Physical ---
ADMIT DATE: 01/25/2018 HISTORY OF PRESENT ILLNESS: I know this patient very well. The patient is known to have underlying psychosis and history of recurrent infections, history of schizophrenia, depression, history of seizures, and on multiple psych medications, [facility] at [facility] along with Dr. Jordan. The patient was admitted for severe agitation and back pain. The patient has no fever, no chills, no skin lesion, no headache, no chest pain, no shortness of breath, no nausea or vomiting, no muscle pain, no bruising, and no syncope. The patient has history of hypertension, hyperlipidemia, seizures, and history of thyroid problem. ALLERGIES: Noted in the chart. PHYSICAL EXAMINATION: GENERAL: Alert, oriented, well-developed, and well-nourished male patient, very agitated. HEAD: Normal. ENT: Normal. NECK: Supple, nontender. LUNGS: Clear. CARDIOVASCULAR SYSTEM: S1 and S2 heard. ABDOMEN: Soft. Bowel sounds are heard. LABORATORY DATA: Reviewed. DIAGNOSES: Psychosis, severe agitation, history of hypertension, hyperlipidemia, seizures, and history of thyroid disorder. I reviewed the labs and patient will have complete lab work. I will follow along with Dr. Jordan. JOB# [id number]
[2018-01-30] MEDS: Levothyroxine 0.075 Mg Tab PO SCH (06:48)
[2018-01-30] MEDS: Benztropine 1 MG TAB PO SCH ×2 (08:33→16:42)
[2018-01-30] MEDS: Fenofibrate, Micronized 134 mg Cap PO SCH (08:33)
--- NOTE | 2018-01-31 01:19 | Progress Notes ---
DATE: 01/30/2018 SUBJECTIVE: Staff was spoken to. The patient is interviewed. Mood is noted to be irritable. Affect is constricted. Coping skills are noted to be poor. The patient has been demanding that he should be given a higher dose of medications. The patient is currently on Clozaril 400 mg at bedtime and also getting 200 mg of Seroquel, plan to decrease the Seroquel to 100 mg and continue the Clozaril at 400 mg and the patient is going to be followed up. The patient is, however, demanding that he should be on a higher dose of the medications because his tolerance is very, very high. The patient has been clearly explained about the medications and their side effects. The patient is also on 1000 mg twice a day of valproic acid. ASSESSMENT: The patient is still psychotic. PLAN: To continue the patient with the current medications and follow up. JOB# [id number]
[2018-01-31] MEDS: Levothyroxine 0.075 Mg Tab PO SCH (06:45)
[2018-01-31] MEDS: Benztropine 1 MG TAB PO SCH ×2 (08:43→16:37)
[2018-01-31] MEDS: Fenofibrate, Micronized 134 mg Cap PO SCH (08:43)
--- NOTE | 2018-01-31 09:42 | Internal Medicine Prog Note ---
Internal Medicine Subjective - Subjective Service Date: 01/31/18 Patient seen and examined:: with staff Patient is:: awake, confused Per staff patient has:: no adverse event, tolerating meds Internal Medicine Objective - Results Result Diagrams: 01/24/18 23:59 01/24/18 23:59 Recent Labs: Laboratory Last Values WBC 7.4 Th/cmm (4.8-10.8) 01/24/18 23:59 RBC 4.09 Mil/cmm (4.30-5.70) L 01/24/18 23:59 Hgb 11.7 gm/dL (12-16) L 01/24/18 23:59 Hct 34.4 % (41.0-60) L 01/24/18 23:59 MCV 84.1 fl (80-99) 01/24/18 23:59 MCH 28.6 pg (26.0-30.0) 01/24/18 23:59 MCHC Differential 34.0 pg (28.0-36.0) 01/24/18 23:59 RDW 15.5 % (11.5-20.0) 01/24/18 23:59 Plt Count 359 Th/cmm (150-400) 01/24/18 23:59 MPV 7.8 fl 01/24/18 23:59 Neutrophils % 51.4 % (40.0-80.0) 01/24/18 23:59 Lymphocytes % 34.8 % (20.0-50.0) 01/24/18 23:59 Monocytes % 8.9 % (2.0-10.0) 01/24/18 23:59 Eosinophils % 4.0 % (0.0-5.0) 01/24/18 23:59 Basophils % 0.9 % (0.0-2.0) 01/24/18 23:59 Sodium 136 mEq/L (136-145) 01/24/18 23:59 Potassium 3.9 mEq/L (3.5-5.1) 01/24/18 23:59 Chloride 107 mEq/L (98-107) 01/24/18 23:59 Carbon Dioxide 23.8 mEq/L (21.0-31.0) 01/24/18 23:59 Anion Gap 9.1 (7.0-16.0) 01/24/18 23:59 BUN 15 mg/dL (7-25) 01/24/18 23:59 Creatinine 1.1 mg/dL (0.7-1.3) 01/24/18 23:59 Est GFR ( Amer) > 60.0 ml/min (>90) 01/24/18 23:59 Est GFR (Non-Af Amer) > 60.0 ml/min 01/24/18 23:59 BUN/Creatinine Ratio 13.6 01/24/18 23:59 Glucose 102 mg/dL (70-105) 01/24/18 23:59 Calcium 9.6 mg/dL (8.6-10.3) 01/24/18 23:59 Total Bilirubin 0.2 mg/dL (0.3-1.0) L 01/24/18 23:59 AST 12 U/L (13-39) L 01/24/18 23:59 ALT 10 U/L (7-52) 01/24/18 23:59 Alkaline Phosphatase 39 U/L (34-104) 01/24/18 23:59 Total Protein 6.4 gm/dL (6.0-8.3) 01/24/18 23:59 Albumin 3.9 gm/dL (4.2-5.5) L 01/24/18 23:59 Globulin 2.5 gm/dL 01/24/18 23:59 Albumin/Globulin Ratio 1.6 (1.0-1.8) 01/24/18 23:59 Urine Source CLEAN C 01/25/18 01:05 Urine Color YELLOW 01/25/18 01:05 Urine Clarity CLEAR (CLEAR) 01/25/18 01:05 Urine pH 7.0 (4.6 - 8.0) 01/25/18 01:05 Ur Specific [place] 1.010 (1.005-1.030) 01/25/18 01:05 Urine Protein NEGATIVE mg/dL (NEGATIVE) 01/25/18 01:05 Urine Glucose (UA) NEGATIVE mg/dL (NEGATIVE) 01/25/18 01:05 Urine Ketones NEGATIVE mg/dL (NEGATIVE) 01/25/18 01:05 Urine Blood NEGATIVE (NEGATIVE) 01/25/18 01:05 Urine Nitrate NEGATIVE (NEGATIVE) 01/25/18 01:05 Urine Bilirubin NEGATIVE (NEGATIVE) 01/25/18 01:05 Urine Urobilinogen 0.2 E.U./dL (0.2 - 1.0) 01/25/18 01:05 Ur Leukocyte Esterase NEGATIVE (NEGATIVE) 01/25/18 01:05 Urine RBC NONE SEEN /hpf (0-5) 01/25/18 01:05 Urine WBC NONE SEEN /hpf (0-5) 01/25/18 01:05 Ur Epithelial Cells NONE SEEN /lpf (FEW) 01/25/18 01:05 Urine Bacteria NONE SEEN /hpf (NONE SEEN) 01/25/18 01:05 Urine Opiates Screen NEGATIVE (NEGATIVE) 01/25/18 01:05 Urine Methadone Screen NEGATIVE (NEGATIVE) 01/25/18 01:05 Ur Barbiturates Screen NEGATIVE (NEGATIVE) 01/25/18 01:05 Valproic Acid 56.9 ug/mL (50.0-100.0) 01/26/18 13:51 Ur Tricyclics Screen POSITIVE (NEGATIVE) H 01/25/18 01:05 Ur Phencyclidine Scrn NEGATIVE (NEGATIVE) 01/25/18 01:05 Amphetamines Screen NEGATIVE (NEGATIVE) 01/25/18 01:05 U Methamphetamines Scrn NEGATIVE (NEGATIVE) 01/25/18 01:05 U Benzodiazepines Scrn NEGATIVE (NEGATIVE) 01/25/18 01:05 U Cocaine Metab Screen NEGATIVE (NEGATIVE) 01/25/18 01:05 U Cannabinoids Screen NEGATIVE (NEGATIVE) 01/25/18 01:05 - Physical Exam Vitals and I&O: Vital Signs Temp 97.4 F 01/30/18 15:33 Pulse 92 01/31/18 08:44 Resp 18 01/30/18 15:33 BP 118/66 01/31/18 08:44 Pulse Ox 98 01/30/18 15:33 Active Medications: Current Medications Acetaminophen (Tylenol) 650 mg PO Q4HR PRN PRN Reason: Fever >100.5 Stop: 03/26/18 04:49 Last Admin: 01/30/18 17:35 Dose: 650 mg Aspirin (Ecotrin) 81 mg PO DAILY [facility] Stop: 03/26/18 08:59 Last Admin: 01/31/18 08:43 Dose: 81 mg Benztropine Mesylate (Cogentin) 1 mg PO BID [facility] Stop: 03/26/18 08:59 Last Admin: 01/31/18 08:43 Dose: 1 mg Clonazepam (Klonopin) 0.5 mg PO BID [facility] PRN Reason: Protocol Stop: 03/26/18 08:59 Last Admin: 01/31/18 08:44 Dose: 0.5 mg Clozapine (Clozaril) 400 mg PO HS [facility] PRN Reason: Protocol Stop: 03/29/18 20:59 Last Admin: 01/30/18 20:44 Dose: 400 mg Famotidine (Pepcid) 20 mg PO QDAC [facility] Stop: 03/26/18 07:29 Last Admin: 01/31/18 06:45 Dose: 20 mg Fenofibrate (Tricor) 134 mg PO DAILY [facility] Stop: 03/26/18 08:59 Last Admin: 01/31/18 08:43 Dose: 134 mg Levothyroxine Sodium (Synthroid) 0.15 mg PO QDAC [facility] Stop: 03/26/18 07:29 Last Admin: 01/31/18 06:45 Dose: 0.15 mg Lisinopril (Zestril) 5 mg PO DAILY [facility] Stop: 03/26/18 08:59 Last Admin: 01/31/18 08:44 Dose: 5 mg Quetiapine Fumarate (Seroquel) 100 mg PO HS [facility] PRN Reason: Protocol Stop: 03/31/18 19:43 Tamsulosin HCl (Flomax) 0.4 mg PO HS [facility] Stop: 03/26/18 20:59 Last Admin: 01/30/18 20:44 Dose: 0.4 mg Valproate Sodium (Depakene) 1,000 mg PO BID [facility] Stop: 03/26/18 16:59 Last Admin: 01/31/18 08:44 Dose: 1,000 mg Zolpidem Tartrate (Ambien) 5 mg PO HS PRN PRN Reason: Insomnia Stop: 03/26/18 05:04 General: alert HEENT: NC/AT, PERRLA Neck: Supple Lungs: CTAB Abdomen: soft, non-tender, non-distended - Procedures Procedures: Procedures Procedure Code Date EGD BIOPSY SINGLE/MULTIPLE 71907 01/25/17 EXCISION OF DUODENUM, ENDO, DIAGN [id number] 01/25/17 EXCISION OF ESOPHAGOGASTRIC JUNCTION, ENDO, DIAGN [id number] 01/25/17 EXCISION OF STOMACH, ENDO, DIAGN [id number] 01/25/17 OTHER GROUP THERAPY 94.44 04/29/15 Nutritional Asmnt/Malnutr-PDOC - Dietary Evaluation Malnutrition Findings (Please click <Entered> for more info): Nutritional Asmnt/Malnutrition Start: 01/30/18 14: 38 Text: Status: Complete Freq: Document 01/30/18 14:38 MAHESH (Rec: 01/30/18 14:47 CHERELLE [email or web address]) Nutritional Asmnt/Malnutrition Patient General Information Nutritional Screening Moderate Risk Diagnosis psychosis Pertinent Medical Hx/Surgical Hx schizophrenia, depression, seizrues HTN, dyslipidemia, thyroid disorder Subjective Information Per EMR PO intake 75-100% of meals Current Diet Order/ Nutrition Support low sodium, no pork, boost TID Pertinent Medications pepcid, synthroid, seroquel Pertinent Labs 01/24 alb 3.9 Nutritional Hx/Data Height 5 ft 10 in Height (Calculated Centimeters) 177.8 Current Weight (lbs) 190 lb Weight (Calculated Kilograms) 86.2 Weight (Calculated Grams) 24667.6 [place] Body Weight 166 % [place] Body Weight 114 Body Mass Index (BMI) 27.2 Weight Status Approriate GI Symptoms GI Symptoms None Last BM 01/28 Difficult in: None Skin Integrity/Comment: intact Current %PO Good (75-100%) Estimated Nutritional Goals Calories/Kcals/Kg 25-30 based on IBW 75kg Kcals Calculated 7696-7629 Protein g/k.8-1 Protein Calculated 60-75 Fluid: ml 1875-2250ml (1ml/kcal) Nutritional Problem No current Nutrition Prob Problem n/A Malnutrition Alert Is there a minimum of two criteria No selected? Query Text:Check all the applicable criteria. A minimum of two criteria are recommended for diagnosis of either severe or non-severe malnutrition. Malnutrition Related to Morbid Obesity Malnutrition related to morbid obesity No Intervention/Recommendation Comments 1. Continue with low sodium diet with Boost TID as ordered . 2. Monitor PO intake, wt, labs and skin integrity 3. F/U as low risk in 7 days, 02/06 Expected Outcomes/Goals Expected Outcomes/Goals 1. PO intake to meet at least 75% of nutritional needs. 2. Wt stability, skin to remain intact, labs to approach WNL.
[2018-01-31 13:11] LABS: % BASOPHILS 0.5 % (0.0-2.0); % EOSINOPHILS 8.1 % (0.0-5.0); % LYMPHOCYTES 29.7 % (20.0-50.0); % MONOCYTES 8.5 % (2.0-10.0); % NEUTROPHILS 53.2 % (40.0-80.0); EOSINOPHILE ABSOLUTE 0.7 Th/cmm (0.1-0.4); HEMATOCRIT 38.9 % (41.0-60); HEMOGLOBIN 12.9 gm/dL (12-16); LYMPHOCYTE ABSOLUTE 2.5 Th/cmm (1.5-3.0); MEAN CELL VOLUME 84.9 fl (80-99); MEAN CORPUSCULAR HEMOGLOBIN 28.3 pg (26.0-30.0); MEAN CORPUSCULAR HGB CONC 33.3 pg (28.0-36.0); MEAN PLATELET VOLUME 8.2 fl; MONOCYTE ABSOLUTE 0.7 Th/cmm (0.3-1.0); NEUTROPHILE ABSOLUTE 4.6 Th/cmm (1.8-8.0); PLATELET COUNT 437 Th/cmm (150-400); RED BLOOD COUNT 4.58 Mil/cmm (4.30-5.70); RED CELL DISTRIBUTION WIDTH 15.7 % (11.5-20.0); WHITE BLOOD COUNT 8.5 Th/cmm (4.8-10.8)
--- NOTE | 2018-01-31 21:12 | Discharge Summary ---
DATE OF DISCHARGE: 01/31/2018 IDENTIFYING DATA: The patient is a 57-year-old male, resident of [facility]. JUSTIFICATION OF HOSPITALIZATION: The patient is admitted on a voluntary basis for his acute psychosis and agitation. CHIEF COMPLAINT: "They are cutting down on my medications, I should be on higher dose of Clozaril and Depakote." DIAGNOSES AT THE TIME OF ADMISSION: AXIS I: Schizoaffective disorder. AXIS II: None. AXIS III: As per Dr. Rogers. HISTORY OF PRESENT ILLNESS: Please refer to 01/25/2018 dictation done by me. The patient had the physical examination done and there are noted to be within normal limits. No major intervention was needed. HOSPITAL COURSE AND RESPONSE TO TREATMENT: The patient has been observed on the inpatient unit, provided with supportive psychotherapy. The patient has been continued on his Clozaril 400 mg at bedtime and also has been given the quetiapine 100 mg at bedtime, and valproic acid was given 1000 mg twice a day. With these medication the patient was observed, the psychosis started to resolve and the patient was discharged on 01/31/2018. MENTAL STATUS EXAMINATION: At the time of discharge, the patient's mood is less irritable. Affect is appropriate. Not suicidal or homicidal. Coping skills are noted to be fair. Insight and judgment are also noted to be improving. No side effects to the medications are noted at the time of the discharge. CONDITION: At the time of discharge noted to be stable. DIAGNOSES AT THE TIME OF DISCHARGE: AXIS I: Schizoaffective disorder. AXIS II: None. AXIS III: As per Dr. Rogers. AFTERCARE PLAN: The patient is discharged to [facility] to be followed up on an outpatient basis. PROGNOSIS: At the time of discharge is noted to be fair with the treatment. JOB# [id number]
== END 2018-01-31 18:30 | DRG 885 ==
LOC: ER 21:17 → GERO2 01-25 02:00 → UNDODISIN 01-31 13:45
DX: F25.9 Schizoaffective disorder, unspecified (principal); F23 Brief psychotic disorder; I10 Essential (primary) hypertension; E78.5 Hyperlipidemia, unspecified; R56.9 Unspecified convulsions; F32.9 Major depressive disorder, single episode, unspecified; E07.9 Disorder of thyroid, unspecified; M54.5 Low back pain; Z82.49 Family history of ischemic heart disease and other diseases of the circulatory system
CPT/HCPCS: 36415-UA; 71045-TC; 80053-TC; 80164-TC; 80307; 81001-TC; 85025-TC; 93005; Z7610

== ENCOUNTER 2018-06-20 18:33 | Inpatient (IN) | payer MEDICARE, MEDICAID ==
[2018-06-20 19:04] LABS: % EOSINOPHILS 5.2 % (0.0-5.0); % LYMPHOCYTES 33.4 % (20.0-50.0); % MONOCYTES 8.4 % (2.0-10.0); BASOPHILE ABSOLUTE 0.1 Th/cumm (0-0.2); EOSINOPHILE ABSOLUTE 0.3 Th/cmm (0.1-0.4); HEMATOCRIT 36.6 % (41.0-60); HEMOGLOBIN 12.2 gm/dL (12-16); LYMPHOCYTE ABSOLUTE 2.2 Th/cmm (1.5-3.0); MEAN CELL VOLUME 86.5 fl (80-99); MEAN CORPUSCULAR HEMOGLOBIN 28.9 pg (26.0-30.0); MEAN CORPUSCULAR HGB CONC 33.4 pg (28.0-36.0); MONOCYTE ABSOLUTE 0.6 Th/cmm (0.3-1.0); NEUTROPHILE ABSOLUTE 3.5 Th/cmm (1.8-8.0); PLATELET COUNT 404 Th/cmm (150-400); RED BLOOD COUNT 4.23 Mil/cmm (4.30-5.70); RED CELL DISTRIBUTION WIDTH 14.9 % (11.5-20.0); WHITE BLOOD COUNT 6.7 Th/cmm (4.8-10.8)
--- NOTE | 2018-06-20 19:16 | ED Physician Chart ---
ED Chief Complaint/HPI - Patient Information Date Seen:: 06/20/18 Time Seen:: 19:11 Chief Complaint:: delirium agitation anxiety History of Present Illness:: 57 yr old male here for agitation psychosis from [facility] evaluation Allergies:: Allergies Allergy/AdvReac Type Severity Reaction Status Date / Time No Known Allergies Allergy Verified 07/30/17 00:20 Vitals:: Vital Signs - 8 hr 06/20/18 18:52 Temp 98.2 F HR 97 RR 16 BP 132/78 O2 Sat % 99 ED Review of Systems - Review of Systems General/Constitutional: No chills Skin: No skin lesions Head: No headache Eyes: No loss of vision ENT: No earache Neck: No neck pain Cardio Vascular: No chest pain Pulmonary: No SOB GI: No nausea, No vomiting G/U: No dysuria Musculoskeletal: No bone or joint pain Endocrine: No polyuria Psychiatric: Prior psych history Hematopoietic: No bruising Allergic/Immuno: No urticaria Neurological: No syncope ED Past Medical History - Past Medical History Past Medical History: Dyslipidemia, PUD/GERD, Seizures, Thyroid disorder, Other (bph) Family Medical History - Family Member Mother History Unknown: Yes Ethnicity: Unknown Living Status: Still Living Hx Family Cancer: No Hx Family Coronary Artery Disease: No Hx Family Congestive Heart Failure: No Hx Family Hypertension: No Hx Family Stroke: No Hx Family Diabetes: No Hx Family Seizures: No Hx Family Dementia: No Hx Family AIDS: No Hx Family HIV: No Hx Family COPD: No Hx Family Hepatitis: No Hx Family Psychiatric Problems: No Hx Family Tuberculosis: No Father History Unknown: Yes Ethnicity: Unknown Living Status: Unknown Hx Family Cancer: (unknown) Hx Family Coronary Artery Disease: (unknown) Hx Family Congestive Heart Failure: (unknown) Hx Family Hypertension: (unknown) Hx Family Stroke: (unknown) Hx Family Diabetes: (unknown) Hx Family Seizures: (unknown) Hx Family Dementia: (unknown) Hx Family AIDS: (unknown) Hx Family HIV: No Hx Family COPD: (unknown) Hx Family Hepatitis: (unknown) Hx Family Psychiatric Problems: (unknown) Hx Family Tuberculosis: (unknown) ED Physical Exam - Physical Examination General/Constitutional: Well-developed, well-nourished, Alert Head: Atraumatic Eyes: Lids, conjuctiva normal Skin: Nl inspection ENMT: External ears, nose nl Neck: Nontender Respiratory: Nl effort/Exclusion Cardio Vascular: RRR, No murmur, gallop, rubs GI: No tenderness/rebounding/guarding, No organomegaly, No hernia : No CVA tenderness Extremities: No tenderness or effusion, Full ROM Neuro/Psych: Alert/oriented, DTR's symmetric Misc: Normal back ED Labs/Radiology/EKG Results - Lab Results Results: Laboratory Tests 06/20/18 18:55 WBC 6.7 RBC 4.23 L Hgb 12.2 Hct 36.6 L MCV 86.5 MCH 28.9 MCHC Differential 33.4 RDW 14.9 Plt Count 404 H MPV 8.0 Neutrophils % 52.0 Lymphocytes % 33.4 Monocytes % 8.4 Eosinophils % 5.2 H Basophils % 1.0 ED Assessment - Assessment General Assessment: dilirium agitation for evaluation ED Septic Shock - . Is Septic Shock (SBP<90, OR Lactate>4 mmol\L) present?: No - <6hrs of presentation: Vital Signs: Vital Signs - 8 hr 06/20/18 18:52 Temp 98.2 F HR 97 RR 16 BP 132/78 O2 Sat % 99 ED Reassessment (Disposition) - Reassessment Reassessment Condition:: Unchanged - Diagnosis Diagnosis:: agitation dilirium for evaluation - Patient Disposition Discharge/Transfer:: Acute Care w/in this hosp
[2018-06-20 19:22] LABS: ALB/GLOB RATIO 1.6 (1.0-1.8); ALBUMIN 4.1 gm/dL (4.2-5.5); ALKALINE PHOSPHATASE 39 U/L (34-104); ANION GAP 10.9 (7.0-16.0); BILIRUBIN,TOTAL 0.3 mg/dL (0.3-1.0); BUN - UREA NITROGEN 25 mg/dL (7-25); CALCIUM SERUM 9.9 mg/dL (8.6-10.3); CHLORIDE 110 mEq/L (98-107); CHOLESTEROL 153 mg/dL (<200); CREATININE - SERUM 1.2 mg/dL (0.7-1.3); GFR AFRICAN-AMERICAN > 60.0 ml/min (>90); GFR NON AFRICAN-AMERICAN > 60.0 ml/min; GLUCOSE 116 mg/dL (70-105); HDL -HIGH DENSITY LIPOPROTEIN 48 mg/dL (23-92); MAGNESIUM 2.2 mg/dL (1.9-2.7); PHOSPHOROUS 2.1 mg/dL (2.5-5.0); POTASSIUM SERUM 3.9 mEq/L (3.5-5.1); SGOT 13 U/L (13-39); SGPT/ALT 11 U/L (7-52); SODIUM SERUM 139 mEq/L (136-145); TOTAL PROTEIN,SERUM 6.7 gm/dL (6.0-8.3); TRIGLYCERIDES 271 mg/dL (<150)
[2018-06-20 21:16] VITALS: BP 100/46
[2018-06-20] MEDS ORDERED: Magnesium Hydroxide (MOM) 30 mL UDC PO PRN (21:22)
[2018-06-20] MEDS ORDERED: Pneumococcal Vaccine 0.5 mL Vial IM ONE (23:26)
[2018-06-20] MEDS ORDERED: Influenza Vaccine (5 yr & older) 0.5 ml Syr IM ONE (23:26)
[2018-06-21] MEDS: Levothyroxine 0.075 Mg Tab PO SCH (06:39)
[2018-06-21] MEDS: Multivitamin Tab PO SCH (09:01)
[2018-06-21] MEDS: Benztropine 1 MG TAB PO SCH ×2 (09:02→16:24)
[2018-06-21] MEDS: Fenofibrate, Micronized 134 mg Cap PO SCH (09:03)
[2018-06-21] MEDS ORDERED: Influenza Vaccine (5 yr & older) 0.5 ml Syr IM ONE (09:37)
--- NOTE | 2018-06-21 10:30 | History & Physical ---
ADMIT DATE: 06/21/2018 CHIEF COMPLAINT: Agitation. HISTORY OF PRESENT ILLNESS: This is a 57-year-old male who was admitted from a shelter facility through the Emergency Room of [facility] due to increase in agitation. From the Emergency Room, the patient was medically cleared and transferred to psychiatric unit. REVIEW OF SYSTEMS: GENERAL: This is a 57-year-old male. Denies any fever or any weakness. HEENT: Denies headache, denies dizziness. EYES: Denies eye pain. Denies blurring of vision. NECK: Denies neck pain. Denies nuchal rigidity. CHEST: Denies chest pain. Denies palpitation. PULMONARY: Denies coughing. Denies shortness of breath. GASTROINTESTINAL: Denies abdominal pain. Denies constipation. Denies diarrhea. MUSCULOSKELETAL: Denies joint pain. Denies muscle pain. SOCIAL HISTORY: The patient lives in a shelter facility prior to hospitalization. FAMILY HISTORY: Unremarkable. PAST SURGICAL HISTORY: Unremarkable. PSYCHIATRIC HISTORY: Includes schizoaffective disorder. PAST MEDICAL HISTORY: Includes hypertension, hyperlipidemia, hypothyroidism, benign prostatic hypertrophy, seizure disorder. PHYSICAL EXAMINATION: VITAL SIGNS: Temperature 98, heart rate of 89, blood pressure 100/46, respirations 20, 97% on room air. GENERAL: This is a 57-year-old male that appears as stated in no acute distress. HEENT: Head is atraumatic, normocephalic. Eyes: Bilateral conjunctivae are clear. Bilateral pupils are equally round and reactive. NECK: Supple. No JVD. CARDIOVASCULAR: S1 and S2 without murmur. PULMONARY: Clear to auscultation. GASTROINTESTINAL: Soft and nontender without guarding. Positive bowel sounds. MUSCULOSKELETAL: No clubbing. No cyanosis noted. ASSESSMENT: 1. Schizoaffective disorder. 2. Hypertension. 3. Hyperlipidemia. 4. Hypothyroidism. 5. Osteoarthritis. 6. Benign prostatic hypertrophy. PLAN: We will admit the patient to Psychiatric Unit. We will follow up with a psychiatrist to monitor the patient's condition and behavior. We will do medication reconciliation accordingly. Treatment plans were discussed with the patient's nurse. Treatment plans were discussed with Dr. Rogers. JOB# [id number]
[2018-06-21 17:42] LABS: % EOSINOPHILS 4.5 % (0.0-5.0); % NEUTROPHILS 51.5 % (40.0-80.0); BASOPHILE ABSOLUTE 0.1 Th/cumm (0-0.2); EOSINOPHILE ABSOLUTE 0.4 Th/cmm (0.1-0.4); HEMOGLOBIN 13.5 gm/dL (12-16); LYMPHOCYTE ABSOLUTE 2.7 Th/cmm (1.5-3.0); MEAN CORPUSCULAR HEMOGLOBIN 27.8 pg (26.0-30.0); MEAN PLATELET VOLUME 8.4 fl; MONOCYTE ABSOLUTE 0.7 Th/cmm (0.3-1.0); NEUTROPHILE ABSOLUTE 4.1 Th/cmm (1.8-8.0); PLATELET COUNT 402 Th/cmm (150-400); RED BLOOD COUNT 4.84 Mil/cmm (4.30-5.70); RED CELL DISTRIBUTION WIDTH 15.4 % (11.5-20.0)
[2018-06-21 17:44] LABS: HEMATOCRIT 42.1 % (41.0-60)
--- NOTE | 2018-06-21 21:11 | Psychiatric Evaluation ---
DATE OF SERVICE: 06/20/2018 PSYCHIATRIC EVALUATION IDENTIFYING DATA: The patient is a 57-year-old male, resident of [facility]. JUSTIFICATION OF HOSPITALIZATION: The patient is admitted here on a voluntary basis in view of his agitation, screaming and yelling behaviors. CHIEF COMPLAINT: "I should be getting more medications, there are not giving me the medications I had, I am upset." HISTORY OF PRESENT ILLNESS: This is one of multiple psychiatric hospitalizations for this patient who is known to me from the previous psychiatric hospitalization in January of this year. The patient has been diagnosed to have schizoaffective disorder and has been having difficult time to accept the medications. The patient is sleeping. Sleep and appetite are noted to be poor. The patient has been getting easily irritable, angry, screaming and yelling at the staff members. The patient could not be contained and hence has to be brought over here for stabilization. PAST PSYCHIATRIC HISTORY: Please refer to the above. MEDICAL HISTORY AND PHYSICAL EXAMINATION: Requested to be done by Dr. Rogers. SUBSTANCE ABUSE HISTORY: None. PHYSICAL OR SEXUAL ABUSE: None. LEGAL PROBLEMS: None at this time. MENTAL STATUS EXAMINATION: The patient is a 57-year-old, pacing on the unit, superficially cooperative. Gait is noted to be normal. No abnormal movements are noted. Speech is noted to be spontaneous. Rate and rhythm are noted to be within normal limits. The patient, however, has been getting easily frustrated, tends to scream and yell with regards to medication concerns. The patient has paranoid delusions. Mood swings are noted at this time. The patient is alert and oriented to place, person, time, and situation. The patient has been very impulsive and could not be redirectable. The patient, however, is not presenting with any threats to harm self or others at this time. The patient's short and long-term memory are noted to be intact. DIAGNOSTIC IMPRESSION: AXIS I: Schizoaffective disorder. AXIS II: None. AXIS III: As per Dr. Rogers. IMMEDIATE TREATMENT PLAN: The patient is going to be restarted on the medications and blood work is going to be reviewed. ESTIMATED LENGTH OF STAY: 3-5 days. DISCHARGE CRITERIA: When the patient is not presenting with any threat to harm self or others. JOB# [id number]
[2018-06-22] MEDS: Levothyroxine 0.075 Mg Tab PO SCH (06:52)
[2018-06-22] MEDS: Benztropine 1 MG TAB PO SCH ×2 (08:08→16:52)
[2018-06-22] MEDS: Fenofibrate, Micronized 134 mg Cap PO SCH (08:08)
[2018-06-22] MEDS: Multivitamin Tab PO SCH (08:51)
--- NOTE | 2018-06-22 09:15 | General Progress Note ---
Subjective - Review of Systems Events since last encounter: patient was admitted for increase agitation awake alert in no distress Objective - Results Result Diagrams: 06/21/18 17:20 06/20/18 18:55 Recent Labs: Laboratory Last Values WBC 8.0 Th/cmm (4.8-10.8) 06/21/18 17:20 RBC 4.84 Mil/cmm (4.30-5.70) 06/21/18 17:20 Hgb 13.5 gm/dL (12-16) 06/21/18 17:20 Hct 42.1 % (41.0-60) D 06/21/18 17:20 MCV 87.0 fl (80-99) 06/21/18 17:20 MCH 27.8 pg (26.0-30.0) 06/21/18 17:20 MCHC Differential 32.0 pg (28.0-36.0) 06/21/18 17:20 RDW 15.4 % (11.5-20.0) 06/21/18 17:20 Plt Count 402 Th/cmm (150-400) H 06/21/18 17:20 MPV 8.4 fl 06/21/18 17:20 Neutrophils % 51.5 % (40.0-80.0) 06/21/18 17:20 Lymphocytes % 34.0 % (20.0-50.0) 06/21/18 17:20 Monocytes % 9.0 % (2.0-10.0) 06/21/18 17:20 Eosinophils % 4.5 % (0.0-5.0) 06/21/18 17:20 Basophils % 1.0 % (0.0-2.0) 06/21/18 17:20 Sodium 139 mEq/L (136-145) 06/20/18 18:55 Potassium 3.9 mEq/L (3.5-5.1) 06/20/18 18:55 Chloride 110 mEq/L (98-107) H 06/20/18 18:55 Carbon Dioxide 22.0 mEq/L (21.0-31.0) 06/20/18 18:55 Anion Gap 10.9 (7.0-16.0) 06/20/18 18:55 BUN 25 mg/dL (7-25) 06/20/18 18:55 Creatinine 1.2 mg/dL (0.7-1.3) 06/20/18 18:55 Est GFR ( Amer) > 60.0 ml/min (>90) 06/20/18 18:55 Est GFR (Non-Af Amer) > 60.0 ml/min 06/20/18 18:55 BUN/Creatinine Ratio 20.8 06/20/18 18:55 Glucose 116 mg/dL (70-105) H 06/20/18 18:55 Calcium 9.9 mg/dL (8.6-10.3) 06/20/18 18:55 Phosphorus 2.1 mg/dL (2.5-5.0) L 06/20/18 18:55 Magnesium 2.2 mg/dL (1.9-2.7) 06/20/18 18:55 Total Bilirubin 0.3 mg/dL (0.3-1.0) 06/20/18 18:55 AST 13 U/L (13-39) 06/20/18 18:55 ALT 11 U/L (7-52) 06/20/18 18:55 Alkaline Phosphatase 39 U/L (34-104) 06/20/18 18:55 Total Protein 6.7 gm/dL (6.0-8.3) 06/20/18 18:55 Albumin 4.1 gm/dL (4.2-5.5) L 06/20/18 18:55 Globulin 2.6 gm/dL 06/20/18 18:55 Albumin/Globulin Ratio 1.6 (1.0-1.8) 06/20/18 18:55 Triglycerides 271 mg/dL (<150) H 06/20/18 18:55 Cholesterol 153 mg/dL (<200) 06/20/18 18:55 LDL Cholesterol Direct 67 mg/dL (75-193) L 06/20/18 18:55 HDL Cholesterol 48 mg/dL (23-92) 06/20/18 18:55 TSH 0.51 uIU/ml (0.34-5.60) 06/20/18 18:55 RPR NONREACTIVE (NONREACTIVE) 06/20/18 18:55 - Physical Exam Vitals and I&O: Vital Signs Temp 96 F 06/22/18 07:07 Pulse 78 10/07/18 07:07 Resp 20 06/22/18 07:07 BP 99/58 06/22/18 08:09 Pulse Ox 93 06/22/18 07:07 Intake & Output 06/21/18 06/22/18 06/22/18 18:59 06:59 18:59 Intake Total 1400 120 Balance 1400 120 Intake: Oral 1400 120 Other: # Voids 4 3 # Bowel Movements 1 Active Medications: Current Medications Acetaminophen (Tylenol) 650 mg PO Q4HR PRN PRN Reason: Mild Pain1-3 / Temp above 100 Stop: 08/19/18 21:21 Last Admin: 06/22/18 08:50 Dose: 650 mg Al Hydrox/Mg Hydrox/Simethicone (Maalox) 30 ml PO Q4HR PRN PRN Reason: GI DISTRESS Stop: 08/19/18 21:21 Aspirin (Ecotrin) 81 mg PO DAILY [facility] Stop: 08/20/18 08:59 Last Admin: 06/22/18 08:07 Dose: 81 mg Benztropine Mesylate (Cogentin) 1 mg PO BID [facility] Stop: 08/20/18 08:59 Last Admin: 06/22/18 08:08 Dose: 1 mg Clonazepam (Klonopin) 0.5 mg PO BID [facility]; Protocol Stop: 08/20/18 08:59 Last Admin: 06/22/18 08:09 Dose: 0.5 mg Clozapine (Clozaril) 400 mg PO HS [facility]; Protocol Stop: 08/20/18 20:59 Last Admin: 06/21/18 21:06 Dose: 400 mg Famotidine (Pepcid) 20 mg PO DAILY [facility] Stop: 08/20/18 08:59 Last Admin: 06/22/18 08:07 Dose: 20 mg Fenofibrate (Tricor) 134 mg PO DAILY [facility] Stop: 08/20/18 08:59 Last Admin: 06/22/18 08:08 Dose: 134 mg Levothyroxine Sodium (Synthroid) 0.15 mg PO QDAC [facility] Stop: 08/20/18 07:29 Last Admin: 06/22/18 06:52 Dose: 0.15 mg Lisinopril (Zestril) 5 mg PO DAILY [facility] Stop: 08/20/18 08:59 Last Admin: 06/22/18 08:09 Dose: Not Given Lorazepam (Ativan) 0.5 mg PO Q4HR PRN; Protocol PRN Reason: Anxiety Stop: 08/19/18 22:19 Last Admin: 06/22/18 08:08 Dose: 0.5 mg Magnesium Hydroxide (Milk Of Magnesia) 30 ml PO HS PRN PRN Reason: Constipation Multivitamins/Vitamin C (Theragran) 1 tab PO DAILY [facility] Stop: 08/20/18 08:59 Last Admin: 06/22/18 08:51 Dose: 1 tab Quetiapine Fumarate (Seroquel) 100 mg PO HS [facility]; Protocol Stop: 08/20/18 20:59 Last Admin: 06/21/18 21:16 Dose: 100 mg Tamsulosin HCl (Flomax) 0.4 mg PO HS [facility] Stop: 08/20/18 20:59 Last Admin: 06/21/18 21:06 Dose: 0.4 mg Valproate Sodium (Depakene) 1,000 mg PO TID [facility]; Protocol Stop: 08/20/18 08:59 Last Admin: 06/22/18 08:17 Dose: 1,000 mg Zolpidem Tartrate (Ambien) 5 mg PO HS PRN PRN Reason: Insomnia Stop: 08/19/18 21:21 General: No acute distress HEENT: Atraumatic Neck: Supple Cardiovascular: Regular rate, Normal S1, Normal S2 Lungs: Clear to auscultation Abdomen: Bowel sounds - Procedures Procedures: Procedures Procedure Code Date EGD BIOPSY SINGLE/MULTIPLE 90118 01/25/17 EXCISION OF DUODENUM, ENDO, DIAGN [id number] 01/25/17 EXCISION OF ESOPHAGOGASTRIC JUNCTION, ENDO, DIAGN [id number] 01/25/17 EXCISION OF STOMACH, ENDO, DIAGN [id number] 01/25/17 OTHER GROUP THERAPY 94.44 04/29/15 Assessment/Plan - Problem List Patient Problems: All Active Problems BPH (benign prostatic hyperplasia) (Acute) N40.0 HTN (hypertension) (Acute) I10 Hyperlipidemia (Acute) E78.5 INCREASED DELUSIONAL THINKING/AGITATION (Acute) Osteoarthritis (Acute) M19.90 Schizophrenia (Acute) F20.9 - Plan Plan: as per order sheet
--- NOTE | 2018-06-22 12:46 | Progress Notes ---
DATE: 06/22/2018 SUBJECTIVE: Staff was spoken to. The patient is interviewed. Mood is noted to be irritable. Affect is constricted. Insight and judgment are noted to be still impaired. Impulse control is noted to be limited. Coping skills are noted to be limited. The patient has been very angry and upset that he is not getting his medications on time. The patient has acute mood swings. Paranoid delusions are noted. The patient is currently on an ample dose of medication such as the Clozaril 400 mg at bedtime along with 1000 mg of the Depakote 3 times a day. ASSESSMENT: The patient is still impulsive. PLAN: To continue the patient with the supportive therapy, encouraged the patient to verbalize the concerns rather than to act out. We will be following on the valproic acid level of this patient. JOB# [id number]
[2018-06-23] MEDS: Levothyroxine 0.075 Mg Tab PO SCH (06:41)
[2018-06-23] MEDS: Fenofibrate, Micronized 134 mg Cap PO SCH (08:37)
[2018-06-23] MEDS: Benztropine 1 MG TAB PO SCH ×2 (08:37→16:14)
[2018-06-23] MEDS: Multivitamin Tab PO SCH (08:38)
--- NOTE | 2018-06-23 11:39 | General Progress Note ---
Subjective - Review of Systems Service Date: 06/23/18 Events since last encounter: impulsive confused Objective - Results Result Diagrams: 06/21/18 17:20 06/20/18 18:55 Recent Labs: Laboratory Last Values WBC 8.0 Th/cmm (4.8-10.8) 06/21/18 17:20 RBC 4.84 Mil/cmm (4.30-5.70) 06/21/18 17:20 Hgb 13.5 gm/dL (12-16) 06/21/18 17:20 Hct 42.1 % (41.0-60) D 06/21/18 17:20 MCV 87.0 fl (80-99) 06/21/18 17:20 MCH 27.8 pg (26.0-30.0) 06/21/18 17:20 MCHC Differential 32.0 pg (28.0-36.0) 06/21/18 17:20 RDW 15.4 % (11.5-20.0) 06/21/18 17:20 Plt Count 402 Th/cmm (150-400) H 06/21/18 17:20 MPV 8.4 fl 06/21/18 17:20 Neutrophils % 51.5 % (40.0-80.0) 06/21/18 17:20 Lymphocytes % 34.0 % (20.0-50.0) 06/21/18 17:20 Monocytes % 9.0 % (2.0-10.0) 06/21/18 17:20 Eosinophils % 4.5 % (0.0-5.0) 06/21/18 17:20 Basophils % 1.0 % (0.0-2.0) 06/21/18 17:20 Sodium 139 mEq/L (136-145) 06/20/18 18:55 Potassium 3.9 mEq/L (3.5-5.1) 06/20/18 18:55 Chloride 110 mEq/L (98-107) H 06/20/18 18:55 Carbon Dioxide 22.0 mEq/L (21.0-31.0) 06/20/18 18:55 Anion Gap 10.9 (7.0-16.0) 06/20/18 18:55 BUN 25 mg/dL (7-25) 06/20/18 18:55 Creatinine 1.2 mg/dL (0.7-1.3) 06/20/18 18:55 Est GFR ( Amer) > 60.0 ml/min (>90) 06/20/18 18:55 Est GFR (Non-Af Amer) > 60.0 ml/min 06/20/18 18:55 BUN/Creatinine Ratio 20.8 06/20/18 18:55 Glucose 116 mg/dL (70-105) H 06/20/18 18:55 Calcium 9.9 mg/dL (8.6-10.3) 06/20/18 18:55 Phosphorus 2.1 mg/dL (2.5-5.0) L 06/20/18 18:55 Magnesium 2.2 mg/dL (1.9-2.7) 06/20/18 18:55 Total Bilirubin 0.3 mg/dL (0.3-1.0) 06/20/18 18:55 AST 13 U/L (13-39) 06/20/18 18:55 ALT 11 U/L (7-52) 06/20/18 18:55 Alkaline Phosphatase 39 U/L (34-104) 06/20/18 18:55 Total Protein 6.7 gm/dL (6.0-8.3) 06/20/18 18:55 Albumin 4.1 gm/dL (4.2-5.5) L 06/20/18 18:55 Globulin 2.6 gm/dL 06/20/18 18:55 Albumin/Globulin Ratio 1.6 (1.0-1.8) 06/20/18 18:55 Triglycerides 271 mg/dL (<150) H 06/20/18 18:55 Cholesterol 153 mg/dL (<200) 06/20/18 18:55 LDL Cholesterol Direct 67 mg/dL (75-193) L 06/20/18 18:55 HDL Cholesterol 48 mg/dL (23-92) 06/20/18 18:55 TSH 0.51 uIU/ml (0.34-5.60) 06/20/18 18:55 RPR NONREACTIVE (NONREACTIVE) 06/20/18 18:55 - Physical Exam Vitals and I&O: Vital Signs Temp 97 F 06/23/18 07:04 Pulse 72 06/23/18 09:17 Resp 18 06/23/18 07:04 BP 113/69 06/23/18 09:17 Pulse Ox 95 06/23/18 07:04 Intake & Output 06/22/18 06/23/18 06/23/18 18:59 06:59 18:59 Intake Total 1800 120 Balance 1800 120 Intake: Oral 1800 120 Other: # Voids 4 3 # Bowel Movements 0 Active Medications: Current Medications Acetaminophen (Tylenol) 650 mg PO Q4HR PRN PRN Reason: Mild Pain1-3 / Temp above 100 Stop: 08/19/18 21:21 Last Admin: 06/23/18 08:36 Dose: 650 mg Al Hydrox/Mg Hydrox/Simethicone (Maalox) 30 ml PO Q4HR PRN PRN Reason: GI DISTRESS Stop: 08/19/18 21:21 Aspirin (Ecotrin) 81 mg PO DAILY [facility] Stop: 08/20/18 08:59 Last Admin: 06/23/18 08:38 Dose: 81 mg Benztropine Mesylate (Cogentin) 1 mg PO BID [facility] Stop: 08/20/18 08:59 Last Admin: 06/23/18 08:37 Dose: 1 mg Clonazepam (Klonopin) 0.5 mg PO BID [facility]; Protocol Stop: 08/20/18 08:59 Last Admin: 06/23/18 08:37 Dose: 0.5 mg Clozapine (Clozaril) 400 mg PO HS [facility]; Protocol Stop: 08/20/18 20:59 Last Admin: 06/22/18 20:31 Dose: 400 mg Famotidine (Pepcid) 20 mg PO DAILY [facility] Stop: 08/20/18 08:59 Last Admin: 06/23/18 08:38 Dose: 20 mg Fenofibrate (Tricor) 134 mg PO DAILY [facility] Stop: 08/20/18 08:59 Last Admin: 06/23/18 08:37 Dose: 134 mg Levothyroxine Sodium (Synthroid) 0.15 mg PO QDAC [facility] Stop: 08/20/18 07:29 Last Admin: 06/23/18 06:41 Dose: 0.15 mg Lisinopril (Zestril) 5 mg PO DAILY [facility] Stop: 08/20/18 08:59 Last Admin: 06/23/18 09:17 Dose: 5 mg Lorazepam (Ativan) 0.5 mg PO Q4HR PRN; Protocol PRN Reason: Anxiety Stop: 08/19/18 22:19 Last Admin: 06/23/18 08:36 Dose: 0.5 mg Magnesium Hydroxide (Milk Of Magnesia) 30 ml PO HS PRN PRN Reason: Constipation Multivitamins/Vitamin C (Theragran) 1 tab PO DAILY [facility] Stop: 08/20/18 08:59 Last Admin: 06/23/18 08:38 Dose: 1 tab Quetiapine Fumarate (Seroquel) 100 mg PO HS [facility]; Protocol Stop: 08/20/18 20:59 Last Admin: 06/22/18 20:31 Dose: 100 mg Tamsulosin HCl (Flomax) 0.4 mg PO HS [facility] Stop: 08/20/18 20:59 Last Admin: 06/22/18 20:31 Dose: 0.4 mg Valproate Sodium (Depakene) 1,000 mg PO TID [facility]; Protocol Stop: 08/20/18 08:59 Last Admin: 06/23/18 08:38 Dose: 1,000 mg Zolpidem Tartrate (Ambien) 5 mg PO HS PRN PRN Reason: Insomnia Stop: 08/19/18 21:21 Last Admin: 06/22/18 20:31 Dose: 5 mg General: Alert, No acute distress HEENT: Atraumatic Neck: Supple Cardiovascular: Regular rate, Normal S1, Normal S2 Lungs: Clear to auscultation Abdomen: Bowel sounds Neurological: Normal gait - Procedures Procedures: Procedures Procedure Code Date EGD BIOPSY SINGLE/MULTIPLE 22859 01/25/17 EXCISION OF DUODENUM, ENDO, DIAGN [id number] 01/25/17 EXCISION OF ESOPHAGOGASTRIC JUNCTION, ENDO, DIAGN [id number] 01/25/17 EXCISION OF STOMACH, ENDO, DIAGN [id number] 01/25/17 OTHER GROUP THERAPY 94.44 04/29/15 Assessment/Plan - Problem List Patient Problems: All Active Problems BPH (benign prostatic hyperplasia) (Acute) N40.0 HTN (hypertension) (Acute) I10 Hyperlipidemia (Acute) E78.5 INCREASED DELUSIONAL THINKING/AGITATION (Acute) Osteoarthritis (Acute) M19.90 Schizophrenia (Acute) F20.9 - Plan Plan: as per order sheet
--- NOTE | 2018-06-23 13:04 | Consultation ---
DATE OF CONSULTATION: 06/23/2018 REFERRING PHYSICIAN: Nikko Pearson M.D. TYPE OF CONSULTATION: Psychology. HISTORY OF PRESENT ILLNESS: The patient is a 57-year-old male. The patient is a resident of [facility]. The patient is known to this expert medical writer from previous hospitalizations. The following is by record review and by patient's self-report. The patient is being admitted due to increased agitation as well as screaming and yelling episodes. The patient presents as somewhat withdrawn, but easily agitated. The patient is somnolent, but arousable. Upon interview, the patient became irritable. The staff at the patient's facility as well as the staff on the unit report the patient has had yelling episodes and is difficult to be contained. The patient did not answer questions about suicidal ideation, plan or intention. PAST MEDICAL HISTORY: Please see history and physical by Dr. Rogers. PAST PSYCHIATRIC HISTORY: The patient has a history of schizoaffective disorder, bipolar type. The patient is under the care of a psychiatrist at his placement. The patient has multiple previous hospitalizations. SUBSTANCE ABUSE HISTORY: No history indicated. PSYCHOSOCIAL HISTORY: The patient did not answer questions about occupational or educational history or sikh affiliation. The patient did not answer questions about history of physical or sexual abuse or current legal problems. The patient declined to answer questions about family relationships. MENTAL STATUS EXAMINATION: The patient appears to be his stated age. The patient's attitude is mostly uncooperative. The patient is pacing on the unit previously, but did return to his room. Eye contact is poor. Speech is spontaneous with intermittent yelling episodes. Thought process shows to be confused with possible paranoid delusions. The patient denied any auditory or visual hallucinations. The patient did not answer questions about experiencing suicidal ideation. The patient's impulse control is poor. Concentration is poor. The patient's behavior on the unit has been un-redirectable. Sensorium is alert and oriented to self and place. The patient did not participate in the memory assessment. The patient did not participate in the interpretation of proverbs. Insight is impaired. Judgment is impaired. DIAGNOSTIC IMPRESSION: AXIS I: History of schizoaffective disorder, bipolar type. AXIS II: Deferred. AXIS III: Per Dr. Rogers. TREATMENT PLAN: The patient has been seen by Dr. Pearson for psychiatric evaluation and for the management of the patient's psychotropic medications. We will provide de-escalation and limit setting interventions to reduce the patient's verbal outbursts and to decrease his agitation. We will provide reality orientation, differentiation and integration. We will encourage the patient to be able to demonstrate emotional and self-regulation prior to his discharge. We will provide coping strategies for chronic long-term severe mental illness. We will encourage the patient to be able to verbally contract for safety, prior to his discharge. Thank you, Dr. Pearson, for this consult and the opportunity to participate in this patient's care. JOB# [id number] DENNY
--- NOTE | 2018-06-24 00:06 | Progress Notes ---
DATE: 06/23/2018 PSYCHIATRIC PROGRESS NOTE SUBJECTIVE: Staff was spoken to. The patient is interviewed. Mood is noted to be irritable. Affect is constricted. The patient is stating that he has been having the problems with the back and he needs to go for a surgery. Coping skills at this time are noted to be very poor. Insight and judgment are also noted to be impaired. No side effects to the medications are noted. ASSESSMENT: The patient is still psychotic and impulsive, mood swings are still a concern. PLAN: To continue the patient with the supportive therapy and follow. JOB# [id number]
[2018-06-24] MEDS: Levothyroxine 0.075 Mg Tab PO SCH (06:47)
[2018-06-24] MEDS: Multivitamin Tab PO SCH (09:04)
[2018-06-24] MEDS: Fenofibrate, Micronized 134 mg Cap PO SCH (09:04)
[2018-06-24] MEDS: Benztropine 1 MG TAB PO SCH ×2 (09:04→17:17)
--- NOTE | 2018-06-24 12:20 | Internal Medicine Prog Note ---
Internal Medicine Subjective - Subjective Service Date: 06/24/18 Patient seen and examined:: with staff Patient is:: awake Per staff patient has:: tolerating meds Internal Medicine Objective - Results Result Diagrams: 06/21/18 17:20 06/20/18 18:55 Recent Labs: Laboratory Last Values WBC 8.0 Th/cmm (4.8-10.8) 06/21/18 17:20 RBC 4.84 Mil/cmm (4.30-5.70) 06/21/18 17:20 Hgb 13.5 gm/dL (12-16) 06/21/18 17:20 Hct 42.1 % (41.0-60) D 06/21/18 17:20 MCV 87.0 fl (80-99) 06/21/18 17:20 MCH 27.8 pg (26.0-30.0) 06/21/18 17:20 MCHC Differential 32.0 pg (28.0-36.0) 06/21/18 17:20 RDW 15.4 % (11.5-20.0) 06/21/18 17:20 Plt Count 402 Th/cmm (150-400) H 06/21/18 17:20 MPV 8.4 fl 06/21/18 17:20 Neutrophils % 51.5 % (40.0-80.0) 06/21/18 17:20 Lymphocytes % 34.0 % (20.0-50.0) 06/21/18 17:20 Monocytes % 9.0 % (2.0-10.0) 06/21/18 17:20 Eosinophils % 4.5 % (0.0-5.0) 06/21/18 17:20 Basophils % 1.0 % (0.0-2.0) 06/21/18 17:20 Sodium 139 mEq/L (136-145) 06/20/18 18:55 Potassium 3.9 mEq/L (3.5-5.1) 06/20/18 18:55 Chloride 110 mEq/L (98-107) H 06/20/18 18:55 Carbon Dioxide 22.0 mEq/L (21.0-31.0) 06/20/18 18:55 Anion Gap 10.9 (7.0-16.0) 06/20/18 18:55 BUN 25 mg/dL (7-25) 06/20/18 18:55 Creatinine 1.2 mg/dL (0.7-1.3) 06/20/18 18:55 Est GFR ( Amer) > 60.0 ml/min (>90) 06/20/18 18:55 Est GFR (Non-Af Amer) > 60.0 ml/min 06/20/18 18:55 BUN/Creatinine Ratio 20.8 06/20/18 18:55 Glucose 116 mg/dL (70-105) H 06/20/18 18:55 Calcium 9.9 mg/dL (8.6-10.3) 06/20/18 18:55 Phosphorus 2.1 mg/dL (2.5-5.0) L 06/20/18 18:55 Magnesium 2.2 mg/dL (1.9-2.7) 06/20/18 18:55 Total Bilirubin 0.3 mg/dL (0.3-1.0) 06/20/18 18:55 AST 13 U/L (13-39) 06/20/18 18:55 ALT 11 U/L (7-52) 06/20/18 18:55 Alkaline Phosphatase 39 U/L (34-104) 06/20/18 18:55 Total Protein 6.7 gm/dL (6.0-8.3) 06/20/18 18:55 Albumin 4.1 gm/dL (4.2-5.5) L 06/20/18 18:55 Globulin 2.6 gm/dL 06/20/18 18:55 Albumin/Globulin Ratio 1.6 (1.0-1.8) 06/20/18 18:55 Triglycerides 271 mg/dL (<150) H 06/20/18 18:55 Cholesterol 153 mg/dL (<200) 06/20/18 18:55 LDL Cholesterol Direct 67 mg/dL (75-193) L 06/20/18 18:55 HDL Cholesterol 48 mg/dL (23-92) 06/20/18 18:55 TSH 0.51 uIU/ml (0.34-5.60) 06/20/18 18:55 RPR NONREACTIVE (NONREACTIVE) 06/20/18 18:55 - Physical Exam Vitals and I&O: Vital Signs Temp 97.6 F 06/24/18 06:47 Pulse 83 06/24/18 09:04 Resp 20 06/24/18 06:47 BP 126/71 06/24/18 09:04 Pulse Ox 99 06/24/18 06:47 Intake & Output 06/23/18 06/24/18 06/24/18 18:59 06:59 18:59 Intake Total 1720 Balance 1720 Intake: Oral 1720 Other: # Voids 4 # Bowel Movements 0 Active Medications: Current Medications Acetaminophen (Tylenol) 650 mg PO Q4HR PRN PRN Reason: Mild Pain1-3 / Temp above 100 Stop: 08/19/18 21:21 Last Admin: 06/24/18 10:20 Dose: 650 mg Al Hydrox/Mg Hydrox/Simethicone (Maalox) 30 ml PO Q4HR PRN PRN Reason: GI DISTRESS Stop: 08/19/18 21:21 Aspirin (Ecotrin) 81 mg PO DAILY [facility] Stop: 08/20/18 08:59 Last Admin: 06/24/18 09:05 Dose: 81 mg Benztropine Mesylate (Cogentin) 1 mg PO BID [facility] Stop: 08/20/18 08:59 Last Admin: 06/24/18 09:04 Dose: 1 mg Clonazepam (Klonopin) 0.5 mg PO BID [facility]; Protocol Stop: 08/20/18 08:59 Last Admin: 06/24/18 09:05 Dose: 0.5 mg Clozapine (Clozaril) 400 mg PO HS [facility]; Protocol Stop: 08/20/18 20:59 Last Admin: 06/23/18 20:30 Dose: 400 mg Famotidine (Pepcid) 20 mg PO DAILY [facility] Stop: 08/20/18 08:59 Last Admin: 06/24/18 09:04 Dose: 20 mg Fenofibrate (Tricor) 134 mg PO DAILY [facility] Stop: 08/20/18 08:59 Last Admin: 06/24/18 09:04 Dose: 134 mg Levothyroxine Sodium (Synthroid) 0.15 mg PO QDAC [facility] Stop: 08/20/18 07:29 Last Admin: 06/24/18 06:47 Dose: 0.15 mg Lisinopril (Zestril) 5 mg PO DAILY [facility] Stop: 08/20/18 08:59 Last Admin: 06/24/18 09:04 Dose: 5 mg Lorazepam (Ativan) 0.5 mg PO Q4HR PRN; Protocol PRN Reason: Anxiety Stop: 08/19/18 22:19 Last Admin: 06/23/18 08:36 Dose: 0.5 mg Magnesium Hydroxide (Milk Of Magnesia) 30 ml PO HS PRN PRN Reason: Constipation Multivitamins/Vitamin C (Theragran) 1 tab PO DAILY [facility] Stop: 08/20/18 08:59 Last Admin: 06/24/18 09:04 Dose: 1 tab Quetiapine Fumarate (Seroquel) 100 mg PO HS [facility]; Protocol Stop: 08/20/18 20:59 Last Admin: 06/23/18 20:30 Dose: 100 mg Tamsulosin HCl (Flomax) 0.4 mg PO HS [facility] Stop: 08/20/18 20:59 Last Admin: 06/23/18 20:30 Dose: 0.4 mg Valproate Sodium (Depakene) 1,000 mg PO TID [facility]; Protocol Stop: 08/20/18 08:59 Last Admin: 06/24/18 09:03 Dose: 1,000 mg Zolpidem Tartrate (Ambien) 5 mg PO HS PRN PRN Reason: Insomnia Stop: 08/19/18 21:21 Last Admin: 06/23/18 20:30 Dose: 5 mg General: alert HEENT: NC/AT, PERRLA Neck: Supple Lungs: CTAB Cardiovascular: RRR, Normal S1, Normal S2, without murmur Abdomen: soft, non-tender, non-distended Neurological: alert - Procedures Procedures: Procedures Procedure Code Date EGD BIOPSY SINGLE/MULTIPLE 91549 01/25/17 EXCISION OF DUODENUM, ENDO, DIAGN [id number] 01/25/17 EXCISION OF ESOPHAGOGASTRIC JUNCTION, ENDO, DIAGN [id number] 01/25/17 EXCISION OF STOMACH, ENDO, DIAGN [id number] 01/25/17 OTHER GROUP THERAPY 94.44 04/29/15 Internal Medicine Assmt/Plan - Assessment Assessment: BPH (benign prostatic hyperplasia) (Acute) N40.0 HTN (hypertension) (Acute) I10 Hyperlipidemia (Acute) E78.5 INCREASED DELUSIONAL THINKING/AGITATION (Acute) Osteoarthritis (Acute) M19.90 Schizophrenia (Acute) F20.9 - Plan Plan: cpm
--- NOTE | 2018-06-24 23:43 | Progress Notes ---
DATE: 06/24/2018 PSYCHIATRIC PROGRESS NOTE SUBJECTIVE: Staff was spoken to. The patient is interviewed. Mood is noted to be irritable. Affect is constricted. Coping skills are noted to be poor. The patient has paranoid delusions. The patient is pacing most of the time on the unit. No side effects to the medications are noted. The patient is fixated on going to [facility] to get back surgery. ASSESSMENT: The patient is still impulsive. PLAN: To continue the patient with the current medications. Encouraged the patient to verbalize the concerns rather than to act out. JOB# [id number]
[2018-06-25] MEDS: Levothyroxine 0.075 Mg Tab PO SCH (06:33)
[2018-06-25] MEDS: Benztropine 1 MG TAB PO SCH ×2 (08:35→16:45)
[2018-06-25] MEDS: Multivitamin Tab PO SCH (08:36)
[2018-06-25] MEDS: Fenofibrate, Micronized 134 mg Cap PO SCH (08:36)
--- NOTE | 2018-06-25 16:47 | Internal Medicine Prog Note ---
Internal Medicine Subjective - Subjective Patient is:: awake Per staff patient has:: tolerating meds Internal Medicine Objective - Results Result Diagrams: 06/21/18 17:20 06/20/18 18:55 Recent Labs: Laboratory Last Values WBC 8.0 Th/cmm (4.8-10.8) 06/21/18 17:20 RBC 4.84 Mil/cmm (4.30-5.70) 06/21/18 17:20 Hgb 13.5 gm/dL (12-16) 06/21/18 17:20 Hct 42.1 % (41.0-60) D 06/21/18 17:20 MCV 87.0 fl (80-99) 06/21/18 17:20 MCH 27.8 pg (26.0-30.0) 06/21/18 17:20 MCHC Differential 32.0 pg (28.0-36.0) 06/21/18 17:20 RDW 15.4 % (11.5-20.0) 06/21/18 17:20 Plt Count 402 Th/cmm (150-400) H 06/21/18 17:20 MPV 8.4 fl 06/21/18 17:20 Neutrophils % 51.5 % (40.0-80.0) 06/21/18 17:20 Lymphocytes % 34.0 % (20.0-50.0) 06/21/18 17:20 Monocytes % 9.0 % (2.0-10.0) 06/21/18 17:20 Eosinophils % 4.5 % (0.0-5.0) 06/21/18 17:20 Basophils % 1.0 % (0.0-2.0) 06/21/18 17:20 Sodium 139 mEq/L (136-145) 06/20/18 18:55 Potassium 3.9 mEq/L (3.5-5.1) 06/20/18 18:55 Chloride 110 mEq/L (98-107) H 06/20/18 18:55 Carbon Dioxide 22.0 mEq/L (21.0-31.0) 06/20/18 18:55 Anion Gap 10.9 (7.0-16.0) 06/20/18 18:55 BUN 25 mg/dL (7-25) 06/20/18 18:55 Creatinine 1.2 mg/dL (0.7-1.3) 06/20/18 18:55 Est GFR ( Amer) > 60.0 ml/min (>90) 06/20/18 18:55 Est GFR (Non-Af Amer) > 60.0 ml/min 06/20/18 18:55 BUN/Creatinine Ratio 20.8 06/20/18 18:55 Glucose 116 mg/dL (70-105) H 06/20/18 18:55 Calcium 9.9 mg/dL (8.6-10.3) 06/20/18 18:55 Phosphorus 2.1 mg/dL (2.5-5.0) L 06/20/18 18:55 Magnesium 2.2 mg/dL (1.9-2.7) 06/20/18 18:55 Total Bilirubin 0.3 mg/dL (0.3-1.0) 06/20/18 18:55 AST 13 U/L (13-39) 06/20/18 18:55 ALT 11 U/L (7-52) 06/20/18 18:55 Alkaline Phosphatase 39 U/L (34-104) 06/20/18 18:55 Total Protein 6.7 gm/dL (6.0-8.3) 06/20/18 18:55 Albumin 4.1 gm/dL (4.2-5.5) L 06/20/18 18:55 Globulin 2.6 gm/dL 06/20/18 18:55 Albumin/Globulin Ratio 1.6 (1.0-1.8) 06/20/18 18:55 Triglycerides 271 mg/dL (<150) H 06/20/18 18:55 Cholesterol 153 mg/dL (<200) 06/20/18 18:55 LDL Cholesterol Direct 67 mg/dL (75-193) L 06/20/18 18:55 HDL Cholesterol 48 mg/dL (23-92) 06/20/18 18:55 TSH 0.51 uIU/ml (0.34-5.60) 06/20/18 18:55 RPR NONREACTIVE (NONREACTIVE) 06/20/18 18:55 - Physical Exam Vitals and I&O: Vital Signs Temp 97.2 F 06/25/18 14:00 Pulse 99 06/25/18 14:00 Resp 18 10/10/18 14:00 BP 115/73 06/25/18 14:00 Pulse Ox 98 06/25/18 14:00 Intake & Output 06/24/18 06/25/18 06/25/18 18:59 06:59 18:59 Intake Total 800 180 Balance 800 180 Intake: Oral 800 180 Other: # Voids 3 2 # Bowel Movements 1 0 Active Medications: Current Medications Acetaminophen (Tylenol) 650 mg PO Q4HR PRN PRN Reason: Mild Pain1-3 / Temp above 100 Stop: 08/19/18 21:21 Last Admin: 06/24/18 10:20 Dose: 650 mg Al Hydrox/Mg Hydrox/Simethicone (Maalox) 30 ml PO Q4HR PRN PRN Reason: GI DISTRESS Stop: 08/19/18 21:21 Aspirin (Ecotrin) 81 mg PO DAILY [facility] Stop: 08/20/18 08:59 Last Admin: 06/25/18 08:35 Dose: 81 mg Benztropine Mesylate (Cogentin) 1 mg PO BID [facility] Stop: 08/20/18 08:59 Last Admin: 06/25/18 16:45 Dose: 1 mg Clonazepam (Klonopin) 0.5 mg PO BID [facility]; Protocol Stop: 08/20/18 08:59 Last Admin: 06/25/18 16:45 Dose: 0.5 mg Clozapine (Clozaril) 400 mg PO HS [facility]; Protocol Stop: 08/20/18 20:59 Last Admin: 06/24/18 20:31 Dose: 400 mg Famotidine (Pepcid) 20 mg PO DAILY [facility] Stop: 08/20/18 08:59 Last Admin: 06/25/18 08:36 Dose: 20 mg Fenofibrate (Tricor) 134 mg PO DAILY [facility] Stop: 08/20/18 08:59 Last Admin: 06/25/18 08:36 Dose: 134 mg Levothyroxine Sodium (Synthroid) 0.15 mg PO QDAC [facility] Stop: 08/20/18 07:29 Last Admin: 06/25/18 06:33 Dose: 0.15 mg Lisinopril (Zestril) 5 mg PO DAILY [facility] Stop: 08/20/18 08:59 Last Admin: 06/25/18 08:37 Dose: Not Given Lorazepam (Ativan) 0.5 mg PO Q4HR PRN; Protocol PRN Reason: Anxiety Stop: 08/19/18 22:19 Last Admin: 06/24/18 14:17 Dose: 0.5 mg Magnesium Hydroxide (Milk Of Magnesia) 30 ml PO HS PRN PRN Reason: Constipation Multivitamins/Vitamin C (Theragran) 1 tab PO DAILY [facility] Stop: 08/20/18 08:59 Last Admin: 06/25/18 08:36 Dose: 1 tab Quetiapine Fumarate (Seroquel) 100 mg PO HS [facility]; Protocol Stop: 08/20/18 20:59 Last Admin: 06/24/18 20:31 Dose: 100 mg Tamsulosin HCl (Flomax) 0.4 mg PO HS [facility] Stop: 08/20/18 20:59 Last Admin: 06/24/18 20:31 Dose: 0.4 mg Valproate Sodium (Depakene) 1,000 mg PO TID [facility]; Protocol Stop: 08/20/18 08:59 Last Admin: 06/25/18 14:29 Dose: 1,000 mg Zolpidem Tartrate (Ambien) 5 mg PO HS PRN PRN Reason: Insomnia Stop: 08/19/18 21:21 Last Admin: 06/23/18 20:30 Dose: 5 mg General: alert HEENT: NC/AT, PERRLA Neck: Supple Lungs: CTAB Cardiovascular: RRR, Normal S1, Normal S2, without murmur Abdomen: soft, non-tender, non-distended Neurological: alert - Procedures Procedures: Procedures Procedure Code Date EGD BIOPSY SINGLE/MULTIPLE 75012 01/25/17 EXCISION OF DUODENUM, ENDO, DIAGN [id number] 01/25/17 EXCISION OF ESOPHAGOGASTRIC JUNCTION, ENDO, DIAGN [id number] 01/25/17 EXCISION OF STOMACH, ENDO, DIAGN [id number] 01/25/17 OTHER GROUP THERAPY 94.44 04/29/15 Internal Medicine Assmt/Plan - Plan Plan: as per order sheet Nutritional Asmnt/Malnutr-PDOC - Dietary Evaluation Malnutrition Findings (Please click <Entered> for more info): Nutritional Asmnt/Malnutrition Start: 06/25/18 13: 33 Text: Status: Complete Freq: Protocol: Document 06/25/18 13:33 KASSIDY (Rec: 06/25/18 13:49 KASSIDY [place]) Nutritional Asmnt/Malnutrition Patient General Information Nutritional Screening Moderate Risk Diagnosis psychosis Pertinent Medical Hx/Surgical Hx hyper/dyslipidemia, PUD/GERD, seizures, thyroid disorder, BPH, HTN, hypothyroidism Subjective Information Pt in rec room at time of visit. Pt appears to be confused and states he can't eat solid food, but nursing noted PO intake of meals is 75 -100%. Pt requested Ensure and juice. Current Diet Order/ Nutrition Support [facility] soft chopped; ensure BID Pertinent Medications maalox, pepcid, tricor, synthroid, theragran, seroquel Pertinent Labs 06/20: glucose 116, Cl 110, Phos 2.1, Alb 4.1, triglycerides 271 Nutritional Hx/Data Height 1.78 m Height (Calculated Centimeters) 177.8 Current Weight (lbs) 89.358 kg Weight (Calculated Kilograms) 89.4 Weight (Calculated Grams) 06305.7 [place] Body Weight 166 lb Body Mass Index (BMI) 28.3 Weight Status Overweight GI Symptoms GI Symptoms None Last BM 06/24 Difficult in: None Food Allergies No Skin Integrity/Comment: intact, scottie 20 Current %PO Good (75-100%) Estimated Nutritional Goals BEE in Kcals: Using Current wt Calories/Kcals/Kg 23-27 Kcals Calculated 4908-6515 Protein: Using Current wt Protein g/k.8-1 Protein Calculated 72-90 g Fluid: ml 2813-2717 (1 ml/kcal) Nutritional Problem No current Nutrition Prob Problem no nutrition dx at this time Malnutrition Alert Is there a minimum of two criteria No selected? Query Text:Check all the applicable criteria. A minimum of two criteria are recommended for diagnosis of either severe or non-severe malnutrition. Malnutrition Related to Morbid Obesity Malnutrition related to morbid obesity No Intervention/Recommendation Comments 1. Continue with [facility] soft chopped diet as ordered. Continue to supplement Ensure Enlive BID per pt's request, updated diet profile 2. Monitor PO intake, wt, labs and skin integrity 3. F/U as low risk in 7 days, 07/02 Expected Outcomes/Goals Expected Outcomes/Goals 1. PO intake at least 75% of all meals. 2. Wt stability, skin to remain intact, labs to approach normal limits Reviewed by Anupama Thomas RD
[2018-06-25] MEDS: Maalox 30 mL Cup PO PRN (18:45)
--- NOTE | 2018-06-26 01:35 | Progress Notes ---
DATE: 06/25/2018 SUBJECTIVE: Staff was spoken to. The patient is interviewed. Mood is noted to be irritable. Affect is constricted. Coping skills are noted to be extremely poor. Sleep and appetite also noted to be very poor. The patient has been very intrusive and is stating that he needs to be on 1000 mg of the Clozaril and patient is also stating that unless he has some Mylanta, he is throwing up most of the time. The patient is claiming that he has been losing weight, but says there is no weight change so far. The patient is currently on 400 mg of the Clozaril at bedtime and is also receiving 100 mg of the Seroquel. The patient is stating that he is losing balance and he is being in the bed and is known to be on too much of medication. ASSESSMENT: The patient is still psychotic and impulsive. PLAN: To continue the patient with the supportive therapy and continue the patient with the Clozaril and followup. JOB# [id number]
[2018-06-26] MEDS: Levothyroxine 0.075 Mg Tab PO SCH (06:32)
[2018-06-26] MEDS: Benztropine 1 MG TAB PO SCH ×2 (08:57→17:06)
[2018-06-26] MEDS: Multivitamin Tab PO SCH (08:57)
[2018-06-26] MEDS: Fenofibrate, Micronized 134 mg Cap PO SCH (08:57)
--- NOTE | 2018-06-26 14:19 | Internal Medicine Prog Note ---
Internal Medicine Subjective - Subjective Service Date: 06/26/18 Patient is:: awake, other (impulsive) Per staff patient has:: tolerating meds Internal Medicine Objective - Results Result Diagrams: 06/21/18 17:20 06/20/18 18:55 Recent Labs: Laboratory Last Values WBC 8.0 Th/cmm (4.8-10.8) 06/21/18 17:20 RBC 4.84 Mil/cmm (4.30-5.70) 06/21/18 17:20 Hgb 13.5 gm/dL (12-16) 06/21/18 17:20 Hct 42.1 % (41.0-60) D 06/21/18 17:20 MCV 87.0 fl (80-99) 06/21/18 17:20 MCH 27.8 pg (26.0-30.0) 06/21/18 17:20 MCHC Differential 32.0 pg (28.0-36.0) 06/21/18 17:20 RDW 15.4 % (11.5-20.0) 06/21/18 17:20 Plt Count 402 Th/cmm (150-400) H 06/21/18 17:20 MPV 8.4 fl 06/21/18 17:20 Neutrophils % 51.5 % (40.0-80.0) 06/21/18 17:20 Lymphocytes % 34.0 % (20.0-50.0) 06/21/18 17:20 Monocytes % 9.0 % (2.0-10.0) 06/21/18 17:20 Eosinophils % 4.5 % (0.0-5.0) 06/21/18 17:20 Basophils % 1.0 % (0.0-2.0) 06/21/18 17:20 Sodium 139 mEq/L (136-145) 06/20/18 18:55 Potassium 3.9 mEq/L (3.5-5.1) 06/20/18 18:55 Chloride 110 mEq/L (98-107) H 06/20/18 18:55 Carbon Dioxide 22.0 mEq/L (21.0-31.0) 06/20/18 18:55 Anion Gap 10.9 (7.0-16.0) 06/20/18 18:55 BUN 25 mg/dL (7-25) 06/20/18 18:55 Creatinine 1.2 mg/dL (0.7-1.3) 06/20/18 18:55 Est GFR ( Amer) > 60.0 ml/min (>90) 06/20/18 18:55 Est GFR (Non-Af Amer) > 60.0 ml/min 06/20/18 18:55 BUN/Creatinine Ratio 20.8 06/20/18 18:55 Glucose 116 mg/dL (70-105) H 06/20/18 18:55 Calcium 9.9 mg/dL (8.6-10.3) 06/20/18 18:55 Phosphorus 2.1 mg/dL (2.5-5.0) L 06/20/18 18:55 Magnesium 2.2 mg/dL (1.9-2.7) 06/20/18 18:55 Total Bilirubin 0.3 mg/dL (0.3-1.0) 06/20/18 18:55 AST 13 U/L (13-39) 06/20/18 18:55 ALT 11 U/L (7-52) 06/20/18 18:55 Alkaline Phosphatase 39 U/L (34-104) 06/20/18 18:55 Total Protein 6.7 gm/dL (6.0-8.3) 06/20/18 18:55 Albumin 4.1 gm/dL (4.2-5.5) L 06/20/18 18:55 Globulin 2.6 gm/dL 06/20/18 18:55 Albumin/Globulin Ratio 1.6 (1.0-1.8) 06/20/18 18:55 Triglycerides 271 mg/dL (<150) H 06/20/18 18:55 Cholesterol 153 mg/dL (<200) 06/20/18 18:55 LDL Cholesterol Direct 67 mg/dL (75-193) L 06/20/18 18:55 HDL Cholesterol 48 mg/dL (23-92) 06/20/18 18:55 TSH 0.51 uIU/ml (0.34-5.60) 06/20/18 18:55 RPR NONREACTIVE (NONREACTIVE) 06/20/18 18:55 - Physical Exam Vitals and I&O: Vital Signs Temp 97.3 F 06/26/18 05:26 Pulse 68 06/26/18 08:59 Resp 18 06/26/18 05:26 BP 102/65 06/26/18 08:59 Pulse Ox 98 06/26/18 05:26 Intake & Output 06/25/18 06/26/18 06/26/18 18:59 06:59 18:59 Intake Total 1200 120 Balance 1200 120 Intake: Oral 1200 120 Other: # Voids 3 # Bowel Movements 1 Active Medications: Current Medications Acetaminophen (Tylenol) 650 mg PO Q4HR PRN PRN Reason: Mild Pain1-3 / Temp above 100 Stop: 08/19/18 21:21 Last Admin: 06/26/18 11:04 Dose: 650 mg Al Hydrox/Mg Hydrox/Simethicone (Maalox) 30 ml PO Q4HR PRN PRN Reason: GI DISTRESS Stop: 08/19/18 21:21 Last Admin: 06/25/18 18:45 Dose: 30 ml Aspirin (Ecotrin) 81 mg PO DAILY [facility] Stop: 08/20/18 08:59 Last Admin: 06/26/18 08:57 Dose: 81 mg Benztropine Mesylate (Cogentin) 1 mg PO BID [facility] Stop: 08/20/18 08:59 Last Admin: 06/26/18 08:57 Dose: 1 mg Clonazepam (Klonopin) 0.5 mg PO BID [facility]; Protocol Stop: 08/20/18 08:59 Last Admin: 06/26/18 08:57 Dose: 0.5 mg Clozapine (Clozaril) 400 mg PO HS [facility]; Protocol Stop: 08/20/18 20:59 Last Admin: 06/25/18 20:33 Dose: 400 mg Famotidine (Pepcid) 20 mg PO DAILY [facility] Stop: 08/20/18 08:59 Last Admin: 06/26/18 08:57 Dose: 20 mg Fenofibrate (Tricor) 134 mg PO DAILY [facility] Stop: 08/20/18 08:59 Last Admin: 06/26/18 08:57 Dose: 134 mg Levothyroxine Sodium (Synthroid) 0.15 mg PO QDAC [facility] Stop: 08/20/18 07:29 Last Admin: 06/26/18 06:32 Dose: 0.15 mg Lisinopril (Zestril) 5 mg PO DAILY [facility] Stop: 08/20/18 08:59 Last Admin: 06/26/18 08:59 Dose: Not Given Lorazepam (Ativan) 0.5 mg PO Q4HR PRN; Protocol PRN Reason: Anxiety Stop: 08/19/18 22:19 Last Admin: 06/25/18 20:33 Dose: 0.5 mg Magnesium Hydroxide (Milk Of Magnesia) 30 ml PO HS PRN PRN Reason: Constipation Multivitamins/Vitamin C (Theragran) 1 tab PO DAILY [facility] Stop: 08/20/18 08:59 Last Admin: 06/26/18 08:57 Dose: 1 tab Tamsulosin HCl (Flomax) 0.4 mg PO HS [facility] Stop: 08/20/18 20:59 Last Admin: 06/25/18 20:33 Dose: 0.4 mg Valproate Sodium (Depakene) 1,000 mg PO TID [facility]; Protocol Stop: 08/20/18 08:59 Last Admin: 06/26/18 13:18 Dose: 1,000 mg Zolpidem Tartrate (Ambien) 5 mg PO HS PRN PRN Reason: Insomnia Stop: 08/19/18 21:21 Last Admin: 06/25/18 20:34 Dose: 5 mg General: alert HEENT: NC/AT, PERRLA Neck: Supple Lungs: CTAB Cardiovascular: RRR, Normal S1, Normal S2, without murmur Abdomen: soft, non-tender, non-distended Neurological: alert - Procedures Procedures: Procedures Procedure Code Date EGD BIOPSY SINGLE/MULTIPLE 91855 01/25/17 EXCISION OF DUODENUM, ENDO, DIAGN [id number] 01/25/17 EXCISION OF ESOPHAGOGASTRIC JUNCTION, ENDO, DIAGN [id number] 01/25/17 EXCISION OF STOMACH, ENDO, DIAGN [id number] 01/25/17 OTHER GROUP THERAPY 94.44 04/29/15 Internal Medicine Assmt/Plan - Assessment Assessment: schizophrenia increase delusional osteoarthritis hyperlipidemia h/o htn - Plan Plan: as per psych will monitor patient Nutritional Asmnt/Malnutr-PDOC - Dietary Evaluation Malnutrition Findings (Please click <Entered> for more info): Nutritional Asmnt/Malnutrition Start: 06/25/18 13: 33 Text: Status: Complete Freq: Protocol: Document 06/25/18 13:33 DYJOVANNY (Rec: 06/25/18 13:49 KASSIDY KIRKLAND) Nutritional Asmnt/Malnutrition Patient General Information Nutritional Screening Moderate Risk Diagnosis psychosis Pertinent Medical Hx/Surgical Hx hyper/dyslipidemia, PUD/GERD, seizures, thyroid disorder, BPH, HTN, hypothyroidism Subjective Information Pt in rec room at time of visit. Pt appears to be confused and states he can't eat solid food, but nursing noted PO intake of meals is 75 -100%. Pt requested Ensure and juice. Current Diet Order/ Nutrition Support [facility] soft chopped; ensure BID Pertinent Medications maalox, pepcid, tricor, synthroid, theragran, seroquel Pertinent Labs 06/20: glucose 116, Cl 110, Phos 2.1, Alb 4.1, triglycerides 271 Nutritional Hx/Data Height 1.78 m Height (Calculated Centimeters) 177.8 Current Weight (lbs) 89.358 kg Weight (Calculated Kilograms) 89.4 Weight (Calculated Grams) 65080.7 [place] Body Weight 166 lb Body Mass Index (BMI) 28.3 Weight Status Overweight GI Symptoms GI Symptoms None Last BM 06/24 Difficult in: None Food Allergies No Skin Integrity/Comment: intact, scottie 20 Current %PO Good (75-100%) Estimated Nutritional Goals BEE in Kcals: Using Current wt Calories/Kcals/Kg 23-27 Kcals Calculated 1259-6169 Protein: Using Current wt Protein g/k.8-1 Protein Calculated 72-90 g Fluid: ml 6455-4382 (1 ml/kcal) Nutritional Problem No current Nutrition Prob Problem no nutrition dx at this time Malnutrition Alert Is there a minimum of two criteria No selected? Query Text:Check all the applicable criteria. A minimum of two criteria are recommended for diagnosis of either severe or non-severe malnutrition. Malnutrition Related to Morbid Obesity Malnutrition related to morbid obesity No Intervention/Recommendation Comments 1. Continue with [facility] soft chopped diet as ordered. Continue to supplement Ensure Enlive BID per pt's request, updated diet profile 2. Monitor PO intake, wt, labs and skin integrity 3. F/U as low risk in 7 days, 07/02 Expected Outcomes/Goals Expected Outcomes/Goals 1. PO intake at least 75% of all meals. 2. Wt stability, skin to remain intact, labs to approach normal limits Reviewed by Anupama Thomas RD
[2018-06-26] MEDS: Maalox 30 mL Cup PO PRN (19:43)
--- NOTE | 2018-06-26 22:13 | Progress Notes ---
DATE: 06/26/2018 SUBJECTIVE: Staff was spoken to. The patient is interviewed. Mood is noted to be irritable. Affect is constricted. The patient is still focused on his physical concerns. The patient continues to be talking the same thing over and over and continues to be preservative. The patient has no insight into his illness. ASSESSMENT: The patient is still grossly psychotic and impulsive. PLAN: To continue the patient with the current medications and followup. [facility]# [id number]
[2018-06-27] MEDS: Levothyroxine 0.075 Mg Tab PO SCH (06:40)
[2018-06-27] MEDS: Fenofibrate, Micronized 134 mg Cap PO SCH (08:47)
[2018-06-27] MEDS: Benztropine 1 MG TAB PO SCH ×2 (08:48→16:36)
[2018-06-27] MEDS: Multivitamin Tab PO SCH (08:48)
--- NOTE | 2018-06-27 13:51 | Internal Medicine Prog Note ---
Internal Medicine Subjective - Subjective Service Date: 06/27/18 Patient is:: awake, other (impulsive) Per staff patient has:: tolerating meds Internal Medicine Objective - Results Result Diagrams: 06/21/18 17:20 06/20/18 18:55 Recent Labs: Laboratory Last Values WBC 8.0 Th/cmm (4.8-10.8) 06/21/18 17:20 RBC 4.84 Mil/cmm (4.30-5.70) 06/21/18 17:20 Hgb 13.5 gm/dL (12-16) 06/21/18 17:20 Hct 42.1 % (41.0-60) D 06/21/18 17:20 MCV 87.0 fl (80-99) 06/21/18 17:20 MCH 27.8 pg (26.0-30.0) 06/21/18 17:20 MCHC Differential 32.0 pg (28.0-36.0) 06/21/18 17:20 RDW 15.4 % (11.5-20.0) 06/21/18 17:20 Plt Count 402 Th/cmm (150-400) H 06/21/18 17:20 MPV 8.4 fl 06/21/18 17:20 Neutrophils % 51.5 % (40.0-80.0) 06/21/18 17:20 Lymphocytes % 34.0 % (20.0-50.0) 06/21/18 17:20 Monocytes % 9.0 % (2.0-10.0) 06/21/18 17:20 Eosinophils % 4.5 % (0.0-5.0) 06/21/18 17:20 Basophils % 1.0 % (0.0-2.0) 06/21/18 17:20 Sodium 139 mEq/L (136-145) 06/20/18 18:55 Potassium 3.9 mEq/L (3.5-5.1) 06/20/18 18:55 Chloride 110 mEq/L (98-107) H 06/20/18 18:55 Carbon Dioxide 22.0 mEq/L (21.0-31.0) 06/20/18 18:55 Anion Gap 10.9 (7.0-16.0) 06/20/18 18:55 BUN 25 mg/dL (7-25) 06/20/18 18:55 Creatinine 1.2 mg/dL (0.7-1.3) 06/20/18 18:55 Est GFR ( Amer) > 60.0 ml/min (>90) 06/20/18 18:55 Est GFR (Non-Af Amer) > 60.0 ml/min 06/20/18 18:55 BUN/Creatinine Ratio 20.8 06/20/18 18:55 Glucose 116 mg/dL (70-105) H 06/20/18 18:55 Calcium 9.9 mg/dL (8.6-10.3) 06/20/18 18:55 Phosphorus 2.1 mg/dL (2.5-5.0) L 06/20/18 18:55 Magnesium 2.2 mg/dL (1.9-2.7) 06/20/18 18:55 Total Bilirubin 0.3 mg/dL (0.3-1.0) 06/20/18 18:55 AST 13 U/L (13-39) 06/20/18 18:55 ALT 11 U/L (7-52) 06/20/18 18:55 Alkaline Phosphatase 39 U/L (34-104) 06/20/18 18:55 Total Protein 6.7 gm/dL (6.0-8.3) 06/20/18 18:55 Albumin 4.1 gm/dL (4.2-5.5) L 06/20/18 18:55 Globulin 2.6 gm/dL 06/20/18 18:55 Albumin/Globulin Ratio 1.6 (1.0-1.8) 06/20/18 18:55 Triglycerides 271 mg/dL (<150) H 06/20/18 18:55 Cholesterol 153 mg/dL (<200) 06/20/18 18:55 LDL Cholesterol Direct 67 mg/dL (75-193) L 06/20/18 18:55 HDL Cholesterol 48 mg/dL (23-92) 06/20/18 18:55 TSH 0.51 uIU/ml (0.34-5.60) 06/20/18 18:55 RPR NONREACTIVE (NONREACTIVE) 06/20/18 18:55 - Physical Exam Vitals and I&O: Vital Signs Temp 97.6 F 06/27/18 06:54 Pulse 90 06/27/18 10:09 Resp 19 06/27/18 06:54 BP 112/69 06/27/18 08:49 Pulse Ox 97 06/27/18 06:54 Intake & Output 06/26/18 06/27/18 06/27/18 18:59 06:59 18:59 Intake Total 1100 Balance 1100 Intake: Oral 1100 Other: # Voids 3 # Bowel Movements 1 Active Medications: Current Medications Acetaminophen (Tylenol) 650 mg PO Q4HR PRN PRN Reason: Mild Pain1-3 / Temp above 100 Stop: 08/19/18 21:21 Last Admin: 06/27/18 09:00 Dose: 650 mg Al Hydrox/Mg Hydrox/Simethicone (Maalox) 30 ml PO Q4HR PRN PRN Reason: GI DISTRESS Stop: 08/19/18 21:21 Last Admin: 06/26/18 19:43 Dose: 30 ml Aspirin (Ecotrin) 81 mg PO DAILY [facility] Stop: 08/20/18 08:59 Last Admin: 06/27/18 08:48 Dose: 81 mg Benztropine Mesylate (Cogentin) 1 mg PO BID [facility] [place] Stop: 08/20/18 08:59 Last Admin: 06/27/18 08:48 Dose: 1 mg Clonazepam (Klonopin) 0.5 mg PO BID [facility]; Protocol Stop: 08/20/18 08:59 Last Admin: 06/27/18 08:49 Dose: 0.5 mg Clozapine (Clozaril) 400 mg PO HS [facility]; Protocol Stop: 08/20/18 20:59 Last Admin: 06/26/18 20:49 Dose: 400 mg Famotidine (Pepcid) 20 mg PO DAILY [facility] [place] Stop: 08/20/18 08:59 Last Admin: 06/27/18 08:50 Dose: 20 mg Fenofibrate (Tricor) 134 mg PO DAILY [facility] [place] Stop: 08/20/18 08:59 Last Admin: 06/27/18 08:47 Dose: 134 mg Levothyroxine Sodium (Synthroid) 0.15 mg PO QDAC [facility] [place] Stop: 08/20/18 07:29 Last Admin: 06/27/18 06:40 Dose: 0.15 mg Lisinopril (Zestril) 5 mg PO DAILY [facility] [place] Stop: 08/20/18 08:59 Last Admin: 06/27/18 08:49 Dose: 5 mg Lorazepam (Ativan) 0.5 mg PO Q4HR PRN; Protocol PRN Reason: Anxiety Stop: 08/19/18 22:19 Last Admin: 06/25/18 20:33 Dose: 0.5 mg Magnesium Hydroxide (Milk Of Magnesia) 30 ml PO HS PRN PRN Reason: Constipation Multivitamins/Vitamin C (Theragran) 1 tab PO DAILY [facility] Stop: 08/20/18 08:59 Last Admin: 06/27/18 08:48 Dose: 1 tab Tamsulosin HCl (Flomax) 0.4 mg PO HS [facility] Stop: 08/20/18 20:59 Last Admin: 06/26/18 20:49 Dose: 0.4 mg Valproate Sodium (Depakene) 1,000 mg PO TID [facility]; Protocol Stop: 08/20/18 08:59 Last Admin: 06/27/18 08:53 Dose: 1,000 mg Zolpidem Tartrate (Ambien) 5 mg PO HS PRN PRN Reason: Insomnia Stop: 08/19/18 21:21 Last Admin: 06/25/18 20:34 Dose: 5 mg General: alert HEENT: NC/AT, PERRLA Neck: Supple Lungs: CTAB Cardiovascular: RRR, Normal S1, Normal S2, without murmur Abdomen: soft, non-tender, non-distended Neurological: alert - Procedures Procedures: Procedures Procedure Code Date EGD BIOPSY SINGLE/MULTIPLE 44836 01/25/17 EXCISION OF DUODENUM, ENDO, DIAGN [id number] 01/25/17 EXCISION OF ESOPHAGOGASTRIC JUNCTION, ENDO, DIAGN [id number] 01/25/17 EXCISION OF STOMACH, ENDO, DIAGN [id number] 01/25/17 OTHER GROUP THERAPY 94.44 04/29/15 Internal Medicine Assmt/Plan - Assessment Assessment: BPH (benign prostatic hyperplasia) (Acute) N40.0 HTN (hypertension) (Acute) I10 Hyperlipidemia (Acute) E78.5 INCREASED DELUSIONAL THINKING/AGITATION (Acute) Osteoarthritis (Acute) M19.90 Schizophrenia (Acute) F20.9 - Plan Plan: cpm Nutritional Asmnt/Malnutr-PDOC - Dietary Evaluation Malnutrition Findings (Please click <Entered> for more info): Nutritional Asmnt/Malnutrition Start: 06/25/18 13: 33 Text: Status: Complete Freq: Protocol: Document 06/25/18 13:33 KASSIDY (Rec: 06/25/18 13:49 KASSIDY KIRKLAND) Nutritional Asmnt/Malnutrition Patient General Information Nutritional Screening Moderate Risk Diagnosis psychosis Pertinent Medical Hx/Surgical Hx hyper/dyslipidemia, PUD/GERD, seizures, thyroid disorder, BPH, HTN, hypothyroidism Subjective Information Pt in rec room at time of visit. Pt appears to be confused and states he can't eat solid food, but nursing noted PO intake of meals is 75 -100%. Pt requested Ensure and juice. Current Diet Order/ Nutrition Support [facility] soft chopped; ensure BID Pertinent Medications maalox, pepcid, tricor, synthroid, theragran, seroquel Pertinent Labs 06/20: glucose 116, Cl 110, Phos 2.1, Alb 4.1, triglycerides 271 Nutritional Hx/Data Height 5 ft 10 in Height (Calculated Centimeters) 177.8 Current Weight (lbs) 197 lb Weight (Calculated Kilograms) 89.4 Weight (Calculated Grams) 96666.7 [place] Body Weight 166 lb Body Mass Index (BMI) 28.3 Weight Status Overweight GI Symptoms GI Symptoms None Last BM 06/24 Difficult in: None Food Allergies No Skin Integrity/Comment: intact, scottie 20 Current %PO Good (75-100%) Estimated Nutritional Goals BEE in Kcals: Using Current wt Calories/Kcals/Kg 23-27 Kcals Calculated 5133-4728 Protein: Using Current wt Protein g/k.8-1 Protein Calculated 72-90 g Fluid: ml 1486-2915 (1 ml/kcal) Nutritional Problem No current Nutrition Prob Problem no nutrition dx at this time Malnutrition Alert Is there a minimum of two criteria No selected? Query Text:Check all the applicable criteria. A minimum of two criteria are recommended for diagnosis of either severe or non-severe malnutrition. Malnutrition Related to Morbid Obesity Malnutrition related to morbid obesity No Intervention/Recommendation Comments 1. Continue with [facility] soft chopped diet as ordered. Continue to supplement Ensure Enlive BID per pt's request, updated diet profile 2. Monitor PO intake, wt, labs and skin integrity 3. F/U as low risk in 7 days, 07/02 Expected Outcomes/Goals Expected Outcomes/Goals 1. PO intake at least 75% of all meals. 2. Wt stability, skin to remain intact, labs to approach normal limits Reviewed by Anupama Thomas RD
[2018-06-27] MEDS: Maalox 30 mL Cup PO PRN (19:38)
--- NOTE | 2018-06-28 06:03 | Progress Notes ---
DATE: 06/27/2018 SUBJECTIVE: Staff was spoken to. The patient is interviewed. Mood is noted to be irritable. Affect is constricted. Insight and judgment at this time are noted to be still impaired. Impulse control is noted to be limited. Coping skills are noted to be limited. The patient has been very upset and has been fixated with his back pain and he is also reporting that he is being in the bed at nighttime. The patient has been clinically on Clozaril and the dose of the Depakote is being adjusted. No side effects to the medications are noted at this time. The patient continues to be somatically preoccupied and paranoid. ASSESSMENT: The patient is still psychotic. PLAN: To continue the patient with the supportive therapy and followup. JOB# [id number]
[2018-06-28 06:49] LABS: % BASOPHILS 0.7 % (0.0-2.0); % EOSINOPHILS 4.9 % (0.0-5.0); % LYMPHOCYTES 40.1 % (20.0-50.0); % MONOCYTES 11.1 % (2.0-10.0); % NEUTROPHILS 43.2 % (40.0-80.0); BASOPHILE ABSOLUTE 0.1 Th/cumm (0-0.2); EOSINOPHILE ABSOLUTE 0.4 Th/cmm (0.1-0.4); HEMATOCRIT 38.5 % (41.0-60); HEMOGLOBIN 12.8 gm/dL (12-16); LYMPHOCYTE ABSOLUTE 3.2 Th/cmm (1.5-3.0); MEAN CELL VOLUME 86.7 fl (80-99); MEAN CORPUSCULAR HEMOGLOBIN 28.8 pg (26.0-30.0); MEAN CORPUSCULAR HGB CONC 33.2 pg (28.0-36.0); MEAN PLATELET VOLUME 8.4 fl; MONOCYTE ABSOLUTE 0.9 Th/cmm (0.3-1.0); NEUTROPHILE ABSOLUTE 3.3 Th/cmm (1.8-8.0); PLATELET COUNT 382 Th/cmm (150-400); RED BLOOD COUNT 4.44 Mil/cmm (4.30-5.70); RED CELL DISTRIBUTION WIDTH 14.6 % (11.5-20.0); WHITE BLOOD COUNT 7.9 Th/cmm (4.8-10.8)
[2018-06-28] MEDS: Levothyroxine 0.075 Mg Tab PO SCH (06:54)
[2018-06-28] MEDS: Fenofibrate, Micronized 134 mg Cap PO SCH (08:16)
[2018-06-28] MEDS: Multivitamin Tab PO SCH (08:16)
[2018-06-28] MEDS: Benztropine 1 MG TAB PO SCH ×2 (08:42→16:21)
[2018-06-28] MEDS: Maalox 30 mL Cup PO PRN (20:21)
--- NOTE | 2018-06-28 21:35 | Progress Notes ---
DATE: 06/28/2018 PSYCHIATRIC PROGRESS NOTE SUBJECTIVE: Staff was spoken to. The patient is interviewed. Mood is noted to be irritable. Affect is constricted. The patient is stating that he is peeing in the bed a lot and could not figure it out what he has to do. Insight and judgment at this time are noted to be still impaired. Impulse control is noted to be limited. Coping skills are noted to be limited. The patient has been having difficult time to cope with the stress. No side effects to the medications are noted. Since the patient has been on a very high dose of the Depakote, it is decided to get the Depakote level today and follow the patient up and the patient has been placed on the medical board for checkup on his urinary incontinence. JOB# [id number]
--- NOTE | 2018-06-29 00:50 | Progress Notes ---
DATE: 06/28/2018 SUBJECTIVE: The patient was seen in the activity room. The patient appears to be guarded and irritable. Otherwise, the patient appears to be in no acute distress. OBJECTIVE: VITAL SIGNS: Temperature 97.3, heart rate 82, blood pressure 114/67, respirations of 18, and 99% on room air. HEENT: Head is atraumatic and normocephalic. Eyes: Bilateral conjunctivae are clear. Bilateral pupils are equally round and reactive. NECK: Supple. No JVD. CARDIOVASCULAR: S1 and S2, without murmur. PULMONARY: Clear to auscultation. GASTROINTESTINAL: Soft and nontender without guarding. Positive bowel sounds. MUSCULOSKELETAL: No clubbing. No cyanosis noted. ASSESSMENT: 1. Schizoaffective disorder. 2. Hypertension. 3. Hyperlipidemia. 4. Hypothyroidism. 5. Osteoarthritis. 6. Benign prostatic hypertrophy. PLAN: We will continue to keep the patient inpatient Psychiatric Unit. We will follow up with a psychiatrist to monitor the patient's condition and behavior. Treatment plans were discussed with the patient's nurse. Treatment plans were discussed with Dr. Rogers. JOB# [id number]
[2018-06-29] MEDS: Levothyroxine 0.075 Mg Tab PO SCH (06:46)
[2018-06-29] MEDS: Fenofibrate, Micronized 134 mg Cap PO SCH (08:15)
[2018-06-29] MEDS: Benztropine 1 MG TAB PO SCH ×2 (08:15→16:24)
[2018-06-29] MEDS: Multivitamin Tab PO SCH (08:16)
--- NOTE | 2018-06-29 09:17 | Diagnostic Imaging Report ---
Ultrasound urinary bladder HISTORY: Urinary frequency Evaluation of the urinary bladder is very limited and suboptimal due to lack of distention. There is suggestion of intraluminal echoes. Etiology uncertain. Findings should be correlated clinically and with urinalysis. IMPRESSION: 1. Very Limited/suboptimal exam due to lack of bladder distention 2. Suggestion of low-level intraluminal echoes within the urinary bladder. Etiology uncertain. The finding should be correlated clinically and with urinalysis.
--- NOTE | 2018-06-29 11:22 | Progress Notes ---
DATE: 06/29/2018 PSYCHIATRIC PROGRESS NOTE PROGRESS ON THE UNIT: Staff was spoken to. The patient is interviewed. Mood is noted to be irritable. Affect is constricted. Insight and judgment at this time are noted to be still impaired. Impulse control is noted to be limited. Coping skills are noted to be limited. The patient has been having difficult time to cope with the stress. The patient has been asking for more and more medication. The patient has been informed that he has been on a decent dose of the medication for his paranoia and mood swings, but the patient wants 1000 mg of Clozaril at this time. The patient has been requested to have the blood tests done for his valproic acid level and it is noted to be 63.2. ASSESSMENT: The patient is still having psychosis and mood swings. PLAN: To continue the patient with supportive therapy and followup. JOB# [id number]
--- NOTE | 2018-06-29 11:56 | Internal Medicine Prog Note ---
Internal Medicine Subjective - Subjective Patient is:: awake, other (still psychotic ) Per staff patient has:: tolerating meds Internal Medicine Objective - Results Result Diagrams: 06/28/18 06:13 06/20/18 18:55 Recent Labs: Laboratory Last Values WBC 7.9 Th/cmm (4.8-10.8) 06/28/18 06:13 RBC 4.44 Mil/cmm (4.30-5.70) 06/28/18 06:13 Hgb 12.8 gm/dL (12-16) 06/28/18 06:13 Hct 38.5 % (41.0-60) L 06/28/18 06:13 MCV 86.7 fl (80-99) 06/28/18 06:13 MCH 28.8 pg (26.0-30.0) 06/28/18 06:13 MCHC Differential 33.2 pg (28.0-36.0) 06/28/18 06:13 RDW 14.6 % (11.5-20.0) 06/28/18 06:13 Plt Count 382 Th/cmm (150-400) 06/28/18 06:13 MPV 8.4 fl 06/28/18 06:13 Neutrophils % 43.2 % (40.0-80.0) 06/28/18 06:13 Lymphocytes % 40.1 % (20.0-50.0) 06/28/18 06:13 Monocytes % 11.1 % (2.0-10.0) H 06/28/18 06:13 Eosinophils % 4.9 % (0.0-5.0) 06/28/18 06:13 Basophils % 0.7 % (0.0-2.0) 06/28/18 06:13 Sodium 139 mEq/L (136-145) 06/20/18 18:55 Potassium 3.9 mEq/L (3.5-5.1) 06/20/18 18:55 Chloride 110 mEq/L (98-107) H 06/20/18 18:55 Carbon Dioxide 22.0 mEq/L (21.0-31.0) 06/20/18 18:55 Anion Gap 10.9 (7.0-16.0) 06/20/18 18:55 BUN 25 mg/dL (7-25) 06/20/18 18:55 Creatinine 1.2 mg/dL (0.7-1.3) 06/20/18 18:55 Est GFR ( Amer) > 60.0 ml/min (>90) 06/20/18 18:55 Est GFR (Non-Af Amer) > 60.0 ml/min 06/20/18 18:55 BUN/Creatinine Ratio 20.8 06/20/18 18:55 Glucose 116 mg/dL (70-105) H 06/20/18 18:55 Calcium 9.9 mg/dL (8.6-10.3) 06/20/18 18:55 Phosphorus 2.1 mg/dL (2.5-5.0) L 06/20/18 18:55 Magnesium 2.2 mg/dL (1.9-2.7) 06/20/18 18:55 Total Bilirubin 0.3 mg/dL (0.3-1.0) 06/20/18 18:55 AST 13 U/L (13-39) 06/20/18 18:55 ALT 11 U/L (7-52) 06/20/18 18:55 Alkaline Phosphatase 39 U/L (34-104) 06/20/18 18:55 Total Protein 6.7 gm/dL (6.0-8.3) 06/20/18 18:55 Albumin 4.1 gm/dL (4.2-5.5) L 06/20/18 18:55 Globulin 2.6 gm/dL 06/20/18 18:55 Albumin/Globulin Ratio 1.6 (1.0-1.8) 06/20/18 18:55 Triglycerides 271 mg/dL (<150) H 06/20/18 18:55 Cholesterol 153 mg/dL (<200) 06/20/18 18:55 LDL Cholesterol Direct 67 mg/dL (75-193) L 06/20/18 18:55 HDL Cholesterol 48 mg/dL (23-92) 06/20/18 18:55 TSH 0.51 uIU/ml (0.34-5.60) 06/20/18 18:55 Valproic Acid 63.2 ug/mL (50.0-100.0) 06/28/18 09:29 RPR NONREACTIVE (NONREACTIVE) 06/20/18 18:55 - Physical Exam Vitals and I&O: Vital Signs Temp 98 F 06/29/18 06:11 Pulse 95 06/29/18 08:15 Resp 20 06/29/18 06:11 BP 129/75 06/29/18 08:15 Pulse Ox 100 06/29/18 06:11 Intake & Output 06/28/18 06/29/18 06/29/18 18:59 06:59 18:59 Intake Total 1400 480 Balance 1400 480 Intake: Oral 1400 480 Other: # Voids 4 3 # Bowel Movements 1 0 Active Medications: Current Medications Acetaminophen (Tylenol) 650 mg PO Q4HR PRN PRN Reason: Mild Pain1-3 / Temp above 100 Stop: 08/19/18 21:21 Last Admin: 06/29/18 09:11 Dose: 650 mg Al Hydrox/Mg Hydrox/Simethicone (Maalox) 30 ml PO Q4HR PRN PRN Reason: GI DISTRESS Stop: 08/19/18 21:21 Last Admin: 06/28/18 20:21 Dose: 30 ml Aspirin (Ecotrin) 81 mg PO DAILY [facility] Stop: 08/20/18 08:59 Last Admin: 06/29/18 08:15 Dose: 81 mg Benztropine Mesylate (Cogentin) 1 mg PO BID [facility] Stop: 08/20/18 08:59 Last Admin: 06/29/18 08:15 Dose: 1 mg Clozapine (Clozaril) 400 mg PO HS [facility]; Protocol Stop: 08/20/18 20:59 Last Admin: 06/28/18 20:20 Dose: 400 mg Famotidine (Pepcid) 20 mg PO DAILY [facility] Stop: 08/20/18 08:59 Last Admin: 06/29/18 08:16 Dose: 20 mg Fenofibrate (Tricor) 134 mg PO DAILY [facility] Stop: 08/20/18 08:59 Last Admin: 06/29/18 08:15 Dose: 134 mg Levothyroxine Sodium (Synthroid) 0.15 mg PO QDAC [facility] Stop: 08/20/18 07:29 Last Admin: 06/29/18 06:46 Dose: 0.15 mg Lisinopril (Zestril) 5 mg PO DAILY [facility] Stop: 08/20/18 08:59 Last Admin: 06/29/18 08:15 Dose: 5 mg Lorazepam (Ativan) 0.5 mg PO Q4HR PRN; Protocol PRN Reason: Anxiety Stop: 08/19/18 22:19 Last Admin: 06/25/18 20:33 Dose: 0.5 mg Magnesium Hydroxide (Milk Of Magnesia) 30 ml PO HS PRN PRN Reason: Constipation Multivitamins/Vitamin C (Theragran) 1 tab PO DAILY [facility] Stop: 08/20/18 08:59 Last Admin: 06/29/18 08:16 Dose: 1 tab Oxybutynin Chloride (Ditropan) 5 mg PO DAILY [facility] Stop: 08/27/18 08:59 Last Admin: 06/29/18 08:15 Dose: 5 mg Tamsulosin HCl (Flomax) 0.4 mg PO HS [facility] Stop: 08/20/18 20:59 Last Admin: 06/28/18 20:20 Dose: 0.4 mg Valproate Sodium (Depakene) 1,000 mg PO TID [facility]; Protocol Stop: 08/20/18 08:59 Last Admin: 06/29/18 08:15 Dose: 1,000 mg General: alert HEENT: NC/AT, PERRLA Neck: Supple Lungs: CTAB Cardiovascular: RRR, Normal S1, Normal S2, without murmur Abdomen: soft, non-tender, non-distended Neurological: alert - Procedures Procedures: Procedures Procedure Code Date EGD BIOPSY SINGLE/MULTIPLE 65795 01/25/17 EXCISION OF DUODENUM, ENDO, DIAGN [id number] 01/25/17 EXCISION OF ESOPHAGOGASTRIC JUNCTION, ENDO, DIAGN [id number] 01/25/17 EXCISION OF STOMACH, ENDO, DIAGN [id number] 01/25/17 OTHER GROUP THERAPY 94.44 04/29/15 Internal Medicine Assmt/Plan - Assessment Assessment: schizophrenia increase delusional osteoarthritis hyperlipidemia h/o htn - Plan Plan: as per psych will monitor patient Nutritional Asmnt/Malnutr-PDOC - Dietary Evaluation Malnutrition Findings (Please click <Entered> for more info): Nutritional Asmnt/Malnutrition Start: 06/25/18 13: 33 Text: Status: Complete Freq: Protocol: Document 06/25/18 13:33 KASSIDY (Rec: 06/25/18 13:49 KASSIDY KIRKLAND) Nutritional Asmnt/Malnutrition Patient General Information Nutritional Screening Moderate Risk Diagnosis psychosis Pertinent Medical Hx/Surgical Hx hyper/dyslipidemia, PUD/GERD, seizures, thyroid disorder, BPH, HTN, hypothyroidism Subjective Information Pt in rec room at time of visit. Pt appears to be confused and states he can't eat solid food, but nursing noted PO intake of meals is 75 -100%. Pt requested Ensure and juice. Current Diet Order/ Nutrition Support [facility] soft chopped; ensure BID Pertinent Medications maalox, pepcid, tricor, synthroid, theragran, seroquel Pertinent Labs 06/20: glucose 116, Cl 110, Phos 2.1, Alb 4.1, triglycerides 271 Nutritional Hx/Data Height 1.78 m Height (Calculated Centimeters) 177.8 Current Weight (lbs) 89.358 kg Weight (Calculated Kilograms) 89.4 Weight (Calculated Grams) 27444.7 [place] Body Weight 166 lb Body Mass Index (BMI) 28.3 Weight Status Overweight GI Symptoms GI Symptoms None Last BM 06/24 Difficult in: None Food Allergies No Skin Integrity/Comment: intact, scottie 20 Current %PO Good (75-100%) Estimated Nutritional Goals BEE in Kcals: Using Current wt Calories/Kcals/Kg 23-27 Kcals Calculated 8681-3019 Protein: Using Current wt Protein g/k.8-1 Protein Calculated 72-90 g Fluid: ml 8273-5662 (1 ml/kcal) Nutritional Problem No current Nutrition Prob Problem no nutrition dx at this time Malnutrition Alert Is there a minimum of two criteria No selected? Query Text:Check all the applicable criteria. A minimum of two criteria are recommended for diagnosis of either severe or non-severe malnutrition. Malnutrition Related to Morbid Obesity Malnutrition related to morbid obesity No Intervention/Recommendation Comments 1. Continue with [facility] soft chopped diet as ordered. Continue to supplement Ensure Enlive BID per pt's request, updated diet profile 2. Monitor PO intake, wt, labs and skin integrity 3. F/U as low risk in 7 days, 07/02 Expected Outcomes/Goals Expected Outcomes/Goals 1. PO intake at least 75% of all meals. 2. Wt stability, skin to remain intact, labs to approach normal limits Reviewed by Anupama Thomas RD
[2018-06-29] MEDS: Maalox 30 mL Cup PO PRN (20:33)
[2018-06-30] MEDS: Levothyroxine 0.075 Mg Tab PO SCH (06:42)
[2018-06-30] MEDS: Benztropine 1 MG TAB PO SCH ×2 (08:09→17:20)
[2018-06-30] MEDS: Multivitamin Tab PO SCH (08:10)
[2018-06-30] MEDS: Fenofibrate, Micronized 134 mg Cap PO SCH (08:10)
--- NOTE | 2018-06-30 15:00 | Internal Medicine Prog Note ---
Internal Medicine Subjective - Subjective Patient is:: awake, other (still psychotic ) Per staff patient has:: tolerating meds Internal Medicine Objective - Results Result Diagrams: 06/28/18 06:13 06/20/18 18:55 Recent Labs: Laboratory Last Values WBC 7.9 Th/cmm (4.8-10.8) 06/28/18 06:13 RBC 4.44 Mil/cmm (4.30-5.70) 06/28/18 06:13 Hgb 12.8 gm/dL (12-16) 06/28/18 06:13 Hct 38.5 % (41.0-60) L 06/28/18 06:13 MCV 86.7 fl (80-99) 06/28/18 06:13 MCH 28.8 pg (26.0-30.0) 06/28/18 06:13 MCHC Differential 33.2 pg (28.0-36.0) 06/28/18 06:13 RDW 14.6 % (11.5-20.0) 06/28/18 06:13 Plt Count 382 Th/cmm (150-400) 06/28/18 06:13 MPV 8.4 fl 06/28/18 06:13 Neutrophils % 43.2 % (40.0-80.0) 06/28/18 06:13 Lymphocytes % 40.1 % (20.0-50.0) 06/28/18 06:13 Monocytes % 11.1 % (2.0-10.0) H 06/28/18 06:13 Eosinophils % 4.9 % (0.0-5.0) 06/28/18 06:13 Basophils % 0.7 % (0.0-2.0) 06/28/18 06:13 Sodium 139 mEq/L (136-145) 06/20/18 18:55 Potassium 3.9 mEq/L (3.5-5.1) 06/20/18 18:55 Chloride 110 mEq/L (98-107) H 06/20/18 18:55 Carbon Dioxide 22.0 mEq/L (21.0-31.0) 06/20/18 18:55 Anion Gap 10.9 (7.0-16.0) 06/20/18 18:55 BUN 25 mg/dL (7-25) 06/20/18 18:55 Creatinine 1.2 mg/dL (0.7-1.3) 06/20/18 18:55 Est GFR ( Amer) > 60.0 ml/min (>90) 06/20/18 18:55 Est GFR (Non-Af Amer) > 60.0 ml/min 06/20/18 18:55 BUN/Creatinine Ratio 20.8 06/20/18 18:55 Glucose 116 mg/dL (70-105) H 06/20/18 18:55 Calcium 9.9 mg/dL (8.6-10.3) 06/20/18 18:55 Phosphorus 2.1 mg/dL (2.5-5.0) L 06/20/18 18:55 Magnesium 2.2 mg/dL (1.9-2.7) 06/20/18 18:55 Total Bilirubin 0.3 mg/dL (0.3-1.0) 06/20/18 18:55 AST 13 U/L (13-39) 06/20/18 18:55 ALT 11 U/L (7-52) 06/20/18 18:55 Alkaline Phosphatase 39 U/L (34-104) 06/20/18 18:55 Total Protein 6.7 gm/dL (6.0-8.3) 06/20/18 18:55 Albumin 4.1 gm/dL (4.2-5.5) L 06/20/18 18:55 Globulin 2.6 gm/dL 06/20/18 18:55 Albumin/Globulin Ratio 1.6 (1.0-1.8) 06/20/18 18:55 Triglycerides 271 mg/dL (<150) H 06/20/18 18:55 Cholesterol 153 mg/dL (<200) 06/20/18 18:55 LDL Cholesterol Direct 67 mg/dL (75-193) L 06/20/18 18:55 HDL Cholesterol 48 mg/dL (23-92) 06/20/18 18:55 TSH 0.51 uIU/ml (0.34-5.60) 06/20/18 18:55 Valproic Acid 63.2 ug/mL (50.0-100.0) 06/28/18 09:29 RPR NONREACTIVE (NONREACTIVE) 06/20/18 18:55 - Physical Exam Vitals and I&O: Vital Signs Temp 96.7 F 06/30/18 06:14 Pulse 85 06/30/18 08:09 Resp 20 06/30/18 06:14 BP 124/76 06/30/18 08:09 Pulse Ox 98 06/30/18 06:14 Intake & Output 06/29/18 06/30/18 06/30/18 18:59 06:59 18:59 Intake Total 1400 240 Balance 1400 240 Intake: Oral 1400 240 Other: # Voids 4 1 # Bowel Movements 1 Active Medications: Current Medications Acetaminophen (Tylenol) 650 mg PO Q4HR PRN PRN Reason: Mild Pain1-3 / Temp above 100 Stop: 08/19/18 21:21 Last Admin: 06/30/18 08:27 Dose: 650 mg Al Hydrox/Mg Hydrox/Simethicone (Maalox) 30 ml PO Q4HR PRN PRN Reason: GI DISTRESS Stop: 08/19/18 21:21 Last Admin: 06/29/18 20:33 Dose: 30 ml Aspirin (Ecotrin) 81 mg PO DAILY [facility] Stop: 08/20/18 08:59 Last Admin: 06/30/18 08:10 Dose: 81 mg Benztropine Mesylate (Cogentin) 1 mg PO BID [facility] Stop: 08/20/18 08:59 Last Admin: 06/30/18 08:09 Dose: 1 mg Clozapine (Clozaril) 400 mg PO HS [facility]; Protocol Stop: 08/20/18 20:59 Last Admin: 06/29/18 20:21 Dose: 400 mg Famotidine (Pepcid) 20 mg PO DAILY [facility] Stop: 08/20/18 08:59 Last Admin: 06/30/18 08:09 Dose: 20 mg Fenofibrate (Tricor) 134 mg PO DAILY [facility] Stop: 08/20/18 08:59 Last Admin: 06/30/18 08:10 Dose: 134 mg Levothyroxine Sodium (Synthroid) 0.15 mg PO QDAC [facility] Stop: 08/20/18 07:29 Last Admin: 06/30/18 06:42 Dose: 0.15 mg Lisinopril (Zestril) 5 mg PO DAILY [facility] Stop: 08/20/18 08:59 Last Admin: 06/30/18 08:09 Dose: 5 mg Lorazepam (Ativan) 0.5 mg PO Q4HR PRN; Protocol PRN Reason: Anxiety Stop: 08/19/18 22:19 Last Admin: 06/30/18 08:10 Dose: 0.5 mg Magnesium Hydroxide (Milk Of Magnesia) 30 ml PO HS PRN PRN Reason: Constipation Multivitamins/Vitamin C (Theragran) 1 tab PO DAILY [facility] Stop: 08/20/18 08:59 Last Admin: 06/30/18 08:10 Dose: 1 tab Oxybutynin Chloride (Ditropan) 5 mg PO DAILY [facility] Stop: 08/27/18 08:59 Last Admin: 06/30/18 08:10 Dose: 5 mg Tamsulosin HCl (Flomax) 0.4 mg PO HS [facility] Stop: 08/20/18 20:59 Last Admin: 06/29/18 20:22 Dose: 0.4 mg Valproate Sodium (Depakene) 1,000 mg PO TID [facility]; Protocol Stop: 08/20/18 08:59 Last Admin: 06/30/18 14:03 Dose: 1,000 mg General: alert HEENT: NC/AT, PERRLA Neck: Supple Lungs: CTAB Cardiovascular: RRR, Normal S1, Normal S2, without murmur Abdomen: soft, non-tender, non-distended Neurological: alert - Procedures Procedures: Procedures Procedure Code Date EGD BIOPSY SINGLE/MULTIPLE 85884 01/25/17 EXCISION OF DUODENUM, ENDO, DIAGN [id number] 01/25/17 EXCISION OF ESOPHAGOGASTRIC JUNCTION, ENDO, DIAGN [id number] 01/25/17 EXCISION OF STOMACH, ENDO, DIAGN [id number] 01/25/17 OTHER GROUP THERAPY 94.44 04/29/15 Internal Medicine Assmt/Plan - Assessment Assessment: schizophrenia increase delusional osteoarthritis hyperlipidemia h/o htn - Plan Plan: as per psych will monitor patient Nutritional Asmnt/Malnutr-PDOC - Dietary Evaluation Malnutrition Findings (Please click <Entered> for more info): Nutritional Asmnt/Malnutrition Start: 06/25/18 13: 33 Text: Status: Complete Freq: Protocol: Document 06/25/18 13:33 KASSIDY (Rec: 06/25/18 13:49 KASSIDY KIRKLAND) Nutritional Asmnt/Malnutrition Patient General Information Nutritional Screening Moderate Risk Diagnosis psychosis Pertinent Medical Hx/Surgical Hx hyper/dyslipidemia, PUD/GERD, seizures, thyroid disorder, BPH, HTN, hypothyroidism Subjective Information Pt in rec room at time of visit. Pt appears to be confused and states he can't eat solid food, but nursing noted PO intake of meals is 75 -100%. Pt requested Ensure and juice. Current Diet Order/ Nutrition Support [facility] soft chopped; ensure BID Pertinent Medications maalox, pepcid, tricor, synthroid, theragran, seroquel Pertinent Labs 06/20: glucose 116, Cl 110, Phos 2.1, Alb 4.1, triglycerides 271 Nutritional Hx/Data Height 1.78 m Height (Calculated Centimeters) 177.8 Current Weight (lbs) 89.358 kg Weight (Calculated Kilograms) 89.4 Weight (Calculated Grams) 17943.7 [place] Body Weight 166 lb Body Mass Index (BMI) 28.3 Weight Status Overweight GI Symptoms GI Symptoms None Last BM 06/24 Difficult in: None Food Allergies No Skin Integrity/Comment: intact, scottie 20 Current %PO Good (75-100%) Estimated Nutritional Goals BEE in Kcals: Using Current wt Calories/Kcals/Kg 23-27 Kcals Calculated 2588-7931 Protein: Using Current wt Protein g/k.8-1 Protein Calculated 72-90 g Fluid: ml 3975-0897 (1 ml/kcal) Nutritional Problem No current Nutrition Prob Problem no nutrition dx at this time Malnutrition Alert Is there a minimum of two criteria No selected? Query Text:Check all the applicable criteria. A minimum of two criteria are recommended for diagnosis of either severe or non-severe malnutrition. Malnutrition Related to Morbid Obesity Malnutrition related to morbid obesity No Intervention/Recommendation Comments 1. Continue with [facility] soft chopped diet as ordered. Continue to supplement Ensure Enlive BID per pt's request, updated diet profile 2. Monitor PO intake, wt, labs and skin integrity 3. F/U as low risk in 7 days, 07/02 Expected Outcomes/Goals Expected Outcomes/Goals 1. PO intake at least 75% of all meals. 2. Wt stability, skin to remain intact, labs to approach normal limits Reviewed by Anupama Thomas RD
[2018-06-30] MEDS: Maalox 30 mL Cup PO PRN (20:10)
--- NOTE | 2018-06-30 23:26 | Progress Notes ---
DATE: 06/30/2018 SUBJECTIVE: Staff was spoken to. The patient is interviewed. Mood is noted to be irritable. Affect is constricted. The patient continues to be very obsessive and keeps on asking the same question again and again. The patient has no insight into his illness. Coping skills noted to be very poor at this time. ASSESSMENT: The patient is still paranoid and impulsive. PLAN: To continue the patient with the supportive therapy, encouraged the patient to verbalize the concerns rather than to act out. The patient is currently on Clozaril and Depakote and has been able to tolerate. JOB# [id number]
[2018-07-01] MEDS: Levothyroxine 0.075 Mg Tab PO SCH (06:32)
[2018-07-01] MEDS: Multivitamin Tab PO SCH (08:20)
[2018-07-01] MEDS: Benztropine 1 MG TAB PO SCH (08:22)
[2018-07-01] MEDS: Fenofibrate, Micronized 134 mg Cap PO SCH (08:22)
--- NOTE | 2018-07-01 11:56 | Internal Medicine Prog Note ---
Internal Medicine Subjective - Subjective Service Date: 07/01/18 Patient is:: awake Per staff patient has:: tolerating meds Internal Medicine Objective - Results Result Diagrams: 06/28/18 06:13 06/20/18 18:55 Recent Labs: Laboratory Last Values WBC 7.9 Th/cmm (4.8-10.8) 06/28/18 06:13 RBC 4.44 Mil/cmm (4.30-5.70) 06/28/18 06:13 Hgb 12.8 gm/dL (12-16) 06/28/18 06:13 Hct 38.5 % (41.0-60) L 06/28/18 06:13 MCV 86.7 fl (80-99) 06/28/18 06:13 MCH 28.8 pg (26.0-30.0) 06/28/18 06:13 MCHC Differential 33.2 pg (28.0-36.0) 06/28/18 06:13 RDW 14.6 % (11.5-20.0) 06/28/18 06:13 Plt Count 382 Th/cmm (150-400) 06/28/18 06:13 MPV 8.4 fl 06/28/18 06:13 Neutrophils % 43.2 % (40.0-80.0) 06/28/18 06:13 Lymphocytes % 40.1 % (20.0-50.0) 06/28/18 06:13 Monocytes % 11.1 % (2.0-10.0) H 06/28/18 06:13 Eosinophils % 4.9 % (0.0-5.0) 06/28/18 06:13 Basophils % 0.7 % (0.0-2.0) 06/28/18 06:13 Sodium 139 mEq/L (136-145) 06/20/18 18:55 Potassium 3.9 mEq/L (3.5-5.1) 06/20/18 18:55 Chloride 110 mEq/L (98-107) H 06/20/18 18:55 Carbon Dioxide 22.0 mEq/L (21.0-31.0) 06/20/18 18:55 Anion Gap 10.9 (7.0-16.0) 06/20/18 18:55 BUN 25 mg/dL (7-25) 06/20/18 18:55 Creatinine 1.2 mg/dL (0.7-1.3) 06/20/18 18:55 Est GFR ( Amer) > 60.0 ml/min (>90) 06/20/18 18:55 Est GFR (Non-Af Amer) > 60.0 ml/min 06/20/18 18:55 BUN/Creatinine Ratio 20.8 06/20/18 18:55 Glucose 116 mg/dL (70-105) H 06/20/18 18:55 Calcium 9.9 mg/dL (8.6-10.3) 06/20/18 18:55 Phosphorus 2.1 mg/dL (2.5-5.0) L 06/20/18 18:55 Magnesium 2.2 mg/dL (1.9-2.7) 06/20/18 18:55 Total Bilirubin 0.3 mg/dL (0.3-1.0) 06/20/18 18:55 AST 13 U/L (13-39) 06/20/18 18:55 ALT 11 U/L (7-52) 06/20/18 18:55 Alkaline Phosphatase 39 U/L (34-104) 06/20/18 18:55 Total Protein 6.7 gm/dL (6.0-8.3) 06/20/18 18:55 Albumin 4.1 gm/dL (4.2-5.5) L 06/20/18 18:55 Globulin 2.6 gm/dL 06/20/18 18:55 Albumin/Globulin Ratio 1.6 (1.0-1.8) 06/20/18 18:55 Triglycerides 271 mg/dL (<150) H 06/20/18 18:55 Cholesterol 153 mg/dL (<200) 06/20/18 18:55 LDL Cholesterol Direct 67 mg/dL (75-193) L 06/20/18 18:55 HDL Cholesterol 48 mg/dL (23-92) 06/20/18 18:55 TSH 0.51 uIU/ml (0.34-5.60) 06/20/18 18:55 Valproic Acid 63.2 ug/mL (50.0-100.0) 06/28/18 09:29 RPR NONREACTIVE (NONREACTIVE) 06/20/18 18:55 - Physical Exam Vitals and I&O: Vital Signs Temp 97 F 07/01/18 06:16 Pulse 78 07/01/18 08:21 Resp 20 07/01/18 06:16 BP 136/74 07/01/18 08:21 Pulse Ox 98 07/01/18 06:16 Intake & Output 06/30/18 07/01/18 07/01/18 18:59 06:59 18:59 Intake Total 900 240 Balance 900 240 Intake: Oral 900 240 Other: # Voids 3 3 # Bowel Movements 1 0 Active Medications: Current Medications Acetaminophen (Tylenol) 650 mg PO Q4HR PRN PRN Reason: Mild Pain1-3 / Temp above 100 Stop: 08/19/18 21:21 Last Admin: 07/01/18 10:17 Dose: 650 mg Al Hydrox/Mg Hydrox/Simethicone (Maalox) 30 ml PO Q4HR PRN PRN Reason: GI DISTRESS Stop: 08/19/18 21:21 Last Admin: 06/30/18 20:10 Dose: 30 ml Aspirin (Ecotrin) 81 mg PO DAILY [facility] Stop: 08/20/18 08:59 Last Admin: 07/01/18 08:22 Dose: 81 mg Benztropine Mesylate (Cogentin) 1 mg PO BID [facility] Stop: 08/20/18 08:59 Last Admin: 07/01/18 08:22 Dose: 1 mg Clozapine (Clozaril) 400 mg PO HS [facility]; Protocol Stop: 08/20/18 20:59 Last Admin: 06/30/18 21:02 Dose: 400 mg Famotidine (Pepcid) 20 mg PO DAILY [facility] Stop: 08/20/18 08:59 Last Admin: 07/01/18 08:22 Dose: 20 mg Fenofibrate (Tricor) 134 mg PO DAILY [facility] Stop: 08/20/18 08:59 Last Admin: 07/01/18 08:22 Dose: 134 mg Levothyroxine Sodium (Synthroid) 0.15 mg PO QDAC [facility] Stop: 08/20/18 07:29 Last Admin: 07/01/18 06:32 Dose: 0.15 mg Lisinopril (Zestril) 5 mg PO DAILY [facility] Stop: 08/20/18 08:59 Last Admin: 07/01/18 08:21 Dose: 5 mg Lorazepam (Ativan) 0.5 mg PO Q4HR PRN; Protocol PRN Reason: Anxiety Stop: 08/19/18 22:19 Last Admin: 07/01/18 08:29 Dose: 0.5 mg Magnesium Hydroxide (Milk Of Magnesia) 30 ml PO HS PRN PRN Reason: Constipation Multivitamins/Vitamin C (Theragran) 1 tab PO DAILY [facility] Stop: 08/20/18 08:59 Last Admin: 07/01/18 08:20 Dose: 1 tab Oxybutynin Chloride (Ditropan) 5 mg PO DAILY [facility] Stop: 08/27/18 08:59 Last Admin: 07/01/18 08:22 Dose: 5 mg Tamsulosin HCl (Flomax) 0.4 mg PO HS [facility] Stop: 08/20/18 20:59 Last Admin: 06/30/18 21:02 Dose: 0.4 mg Valproate Sodium (Depakene) 1,000 mg PO TID [facility]; Protocol Stop: 08/20/18 08:59 Last Admin: 07/01/18 08:19 Dose: 1,000 mg General: alert HEENT: NC/AT, PERRLA Neck: Supple Lungs: CTAB Cardiovascular: RRR, Normal S1, Normal S2, without murmur Abdomen: soft, non-tender, non-distended Neurological: alert - Procedures Procedures: Procedures Procedure Code Date EGD BIOPSY SINGLE/MULTIPLE 64022 01/25/17 EXCISION OF DUODENUM, ENDO, DIAGN [id number] 01/25/17 EXCISION OF ESOPHAGOGASTRIC JUNCTION, ENDO, DIAGN [id number] 01/25/17 EXCISION OF STOMACH, ENDO, DIAGN [id number] 01/25/17 OTHER GROUP THERAPY 94.44 04/29/15 Internal Medicine Assmt/Plan - Assessment Assessment: BPH (benign prostatic hyperplasia) (Acute) N40.0 HTN (hypertension) (Acute) I10 Hyperlipidemia (Acute) E78.5 INCREASED DELUSIONAL THINKING/AGITATION (Acute) Osteoarthritis (Acute) M19.90 Schizophrenia (Acute) F20.9 - Plan Plan: cpm Nutritional Asmnt/Malnutr-PDOC - Dietary Evaluation Malnutrition Findings (Please click <Entered> for more info): Nutritional Asmnt/Malnutrition Start: 06/25/18 13: 33 Text: Status: Complete Freq: Protocol: Document 06/25/18 13:33 DYANG (Rec: 06/25/18 13:49 KASSIDY KIRKLAND) Nutritional Asmnt/Malnutrition Patient General Information Nutritional Screening Moderate Risk Diagnosis psychosis Pertinent Medical Hx/Surgical Hx hyper/dyslipidemia, PUD/GERD, seizures, thyroid disorder, BPH, HTN, hypothyroidism Subjective Information Pt in rec room at time of visit. Pt appears to be confused and states he can't eat solid food, but nursing noted PO intake of meals is 75 -100%. Pt requested Ensure and juice. Current Diet Order/ Nutrition Support [facility] soft chopped; ensure BID Pertinent Medications maalox, pepcid, tricor, synthroid, theragran, seroquel Pertinent Labs 06/20: glucose 116, Cl 110, Phos 2.1, Alb 4.1, triglycerides 271 Nutritional Hx/Data Height 5 ft 10 in Height (Calculated Centimeters) 177.8 Current Weight (lbs) 197 lb Weight (Calculated Kilograms) 89.4 Weight (Calculated Grams) 55566.7 [place] Body Weight 166 lb Body Mass Index (BMI) 28.3 Weight Status Overweight GI Symptoms GI Symptoms None Last BM 06/24 Difficult in: None Food Allergies No Skin Integrity/Comment: intact, scottie 20 Current %PO Good (75-100%) Estimated Nutritional Goals BEE in Kcals: Using Current wt Calories/Kcals/Kg 23-27 Kcals Calculated 8151-2248 Protein: Using Current wt Protein g/k.8-1 Protein Calculated 72-90 g Fluid: ml 4752-7393 (1 ml/kcal) Nutritional Problem No current Nutrition Prob Problem no nutrition dx at this time Malnutrition Alert Is there a minimum of two criteria No selected? Query Text:Check all the applicable criteria. A minimum of two criteria are recommended for diagnosis of either severe or non-severe malnutrition. Malnutrition Related to Morbid Obesity Malnutrition related to morbid obesity No Intervention/Recommendation Comments 1. Continue with [facility] soft chopped diet as ordered. Continue to supplement Ensure Enlive BID per pt's request, updated diet profile 2. Monitor PO intake, wt, labs and skin integrity 3. F/U as low risk in 7 days, 07/02 Expected Outcomes/Goals Expected Outcomes/Goals 1. PO intake at least 75% of all meals. 2. Wt stability, skin to remain intact, labs to approach normal limits Reviewed by Anupama Thomas RD
--- NOTE | 2018-07-02 01:39 | Progress Notes ---
DATE: 07/01/2018 SUBJECTIVE: Staff was spoken to. The patient is interviewed. Mood is noted to be anxious. Affect is appropriate. Not suicidal or homicidal. Insight and judgment are noted to be impaired. Impulse control is also noted to be impaired. The patient is able to tolerate the medications. The patient is willing to comply with the treatment. The patient, however, has been presenting with problems of back pain and knee that he needs to go and see the medical doctor outside. ASSESSMENT: The patient is stabilizing. PLAN: To discharge the patient today for followup on outpatient basis. JOB# [id number]
--- NOTE | 2018-07-06 12:16 | Discharge Summary ---
DATE OF DISCHARGE: 07/01/2018 IDENTIFYING DATA: The patient is a 57-year-old male, resident of [facility]. Information obtained by directly interviewing the patient as well as reviewing the admission papers and they are reliable. JUSTIFICATION OF HOSPITALIZATION: The patient is admitted here on a voluntary basis in view of his acute agitation, screaming, and yelling behaviors. DIAGNOSES AT THE TIME OF ADMISSION: AXIS I: Schizoaffective disorder. AXIS II: None. AXIS III: As per Dr. Rogers. HISTORY OF PRESENT ILLNESS: Please refer to 06/21/2018 dictation done by me. HOSPITAL COURSE AND RESPONSE TO TREATMENT: The patient has been observed on the inpatient unit, provided with supportive psychotherapy. The patient has been continued on his Clozaril. The patient noted more and more of Clozaril and the patient also has been placed on valproic acid 500 mg twice a day, Depakote was given 100 mg at bedtime. These medications, the patient has been observed and the patient impulsivity started to resolve and hence the patient was finally discharged with recommendation that he should seek treatment on an outpatient basis. MENTAL STATUS EXAMINATION AT THE TIME OF DISCHARGE: Noted to be stable. The patient is not presenting with any threats to harm self or others at the time of the discharge. CONDITION: At discharge noted to be stable. DIAGNOSES AT THE TIME OF DISCHARGE: AXIS I: Schizoaffective disorder. AXIS II: None. AXIS III: None. AFTERCARE PLAN: The patient is discharged to the [facility] for further followup. JOB# [id number]
== END 2018-07-01 16:35 | DRG 885 ==
LOC: ER 18:33 → GERO 19:45
PROVIDERS: ADMIT Psychiatry & Neurology Psychiatry; ATTEND Psychiatry & Neurology Psychiatry
DX: F25.0 Schizoaffective disorder, bipolar type (principal); I10 Essential (primary) hypertension; E78.5 Hyperlipidemia, unspecified; E03.9 Hypothyroidism, unspecified; N40.0 Benign prostatic hyperplasia without lower urinary tract symptoms; G40.909 Epilepsy, unspecified, not intractable, without status epilepticus; K21.9 Gastro-esophageal reflux disease without esophagitis; M19.90 Unspecified osteoarthritis, unspecified site
CPT/HCPCS: 36415-UA; 76857-TC; 80053-TC; 80061-TC; 80164-TC; 83036-90; 83735-TC; 84100-TC; 84443-TC; 85025-TC; 86592-TC; 90732; 90899; 93005; G0410; Z7610